=== PATIENT | female | born 1950 | race Caucasian/White ===

== ENCOUNTER 2019-06-02 20:42 | Outpatient (CLI) | payer MEDICARE | END 2019-06-02 20:43 | disposition short-term general hospital (02) | LOC: EMS 20:42 | PROVIDERS: ATTEND Surgery | DX: R10.32 Left lower quadrant pain (principal); M54.5 Low back pain | CPT/HCPCS: A0425; A0429 ==

== ENCOUNTER 2019-06-09 05:27 | Outpatient (CLI) | payer MEDICARE | END 2019-06-09 05:28 | disposition EMS.NT | LOC: EMS 05:27 | PROVIDERS: ATTEND Surgery | DX: Z03.89 Encounter for observation for other suspected diseases and conditions ruled out (principal) ==

== ENCOUNTER 2022-06-02 08:00 | Outpatient (CLI) | payer MEDICARE | END 2022-06-02 23:58 | disposition home or self-care (01) | LOC: LAB.N 08:00 | PROVIDERS: ATTEND Registered Nurse | DX: R30.0 Dysuria (principal) | CPT/HCPCS: 87077; 87086; 87181 ==

== ENCOUNTER 2022-07-28 13:45 | Outpatient (CLI) | payer MEDICARE ==
--- NOTE | 2022-07-29 09:41 | XRAY Report ---
PROCEDURE: Hand 3 View BILAT INDICATIONS: BILATERAL HAND PX TECHNIQUE: 3 views of each hand(s) acquired. COMPARISON: None. FINDINGS: Bones: No fractures or dislocations. No suspicious bony lesions. Mild osteoarthritic changes bilat erally. No definitive bony erosions. Mild periarticular osteopenia. Soft tissues: No suspicious soft tissue calcifications. IMPRESSION: 1. Mild osteoarthritic changes are present bilaterally. There is no bony erosions although there is m ild periventricular osteopenia. Previous correlate with serum markers for inflammatory arthritis. Reviewed by: Robert Palacios MD on 07/29/2022 9:39 AM [facility] Approved by: Robert Palacios MD on 07/29/2022 9:39 AM [facility] Station ID: [id number]
== END 2022-07-28 13:46 | disposition home or self-care (01) ==
LOC: DI.N 13:45
PROVIDERS: ATTEND Internal Medicine
DX: M19.041 Primary osteoarthritis, right hand (principal); M19.042 Primary osteoarthritis, left hand; M85.842 Other specified disorders of bone density and structure, left hand; M85.841 Other specified disorders of bone density and structure, right hand

== ENCOUNTER 2022-12-06 16:17 | Outpatient (CLI) | payer MEDICARE | END 2022-12-06 23:59 | disposition critical access hospital (66) | LOC: EMS 16:17 | DX: R46.4 Slowness and poor responsiveness (principal); R06.82 Tachypnea, not elsewhere classified; R09.02 Hypoxemia; I10 Essential (primary) hypertension; R50.9 Fever, unspecified; R00.0 Tachycardia, unspecified | CPT/HCPCS: A0425; A0427 ==

== ENCOUNTER 2022-12-06 16:38 | Inpatient (IN) | payer MEDICARE ==
[2022-12-06] MEDS ORDERED: SODIUM CHLORIDE 0.9% 1,000 ML IV STA (16:47)
--- NOTE | 2022-12-06 16:48 | ED Physician Documentation ---
PD HPI FEVER - Stated complaint Stated Complaint: AMS - History obtained from History obtained from: EMS - Additional information Additional information: 72-year-old woman brought in by EMS for altered mental status. The patient is nonresponsive so all of the history is from EMS. They obtained their history from the neighbor. Reportedly seen normal yesterday. Today unresponsive and febrile and tachycardic at home. PD PAST MEDICAL HISTORY - Allergies Allergies/Adverse Reactions: Allergies Allergy/AdvReac Type Severity Reaction Status Date / Time No Known Drug Allergies Allergy Verified 12/06/22 16:53 PD ED PE NORMAL - Vitals Vital signs reviewed: Yes - General General: Other (She is unresponsive and does not follow commands. She withdraws to painful stimulus in all 4 extremities.) - HEENT HEENT: PERRL - Neck Neck: Supple, no meningeal sign - Cardiac Cardiac: Other (Tachycardic but regular without murmur) - Respiratory Respiratory: No respiratory distress, Clear bilaterally - Abdomen Abdomen: Soft, Non tender - Back Back: No CVA TTP, No spinal TTP - Derm Derm: Normal color, Warm and dry - Extremities Extremities: No edema, No calf tenderness / cord - Neuro Eye Opening: None Motor: Withdraws to Pain Verbal: None GCS Score: 6 Results - Vitals Vitals: Vital Signs - 24 hr 12/06/22 12/06/22 16:49 19:52 Temperature 39.4 C H 36.7 C Heart Rate 138 H 112 H Respiratory 24 20 Rate Blood Pressure 157/84 H 90/58 L O2 Saturation 92 94 Oxygen O2 Source Nasal cannula Oxygen Flow Rate 3 - EKG (time done) 1758 EKG releavant findings:: EKG personally interpreted by author of this note. Relevant findings are: Rate: Rate (enter#) (129) Rhythm: Sinus tachycardia [place]: Normal Intervals: Normal NE QRS: Normal Ischemia: Normal ST segments - Labs Labs: Laboratory Tests 12/06/22 12/06/22 12/06/22 14:55 16:58 16:58 WBC 9.8 RBC 5.00 Hgb 13.7 Hct 43.2 MCV 86.4 MCH 27.4 MCHC 31.7 L RDW 13.9 Plt Count 158 MPV 9.3 Neut # (Auto) Not Reportable Lymph # (Auto) Not Reportable Willacy # (Auto) Not Reportable Eos # (Auto) Not Reportable Baso # (Auto) Not Reportable Absolute Nucleated RBC Not Reportable Total Counted 100 Band Neuts % (Manual) 14 H Abnorm Lymph % (Manual) 0 Nucleated RBC % Not Reportable Neutrophils # (Manual) 8.9 H Lymphocytes # (Manual) 0.6 L Monocytes # (Manual) 0.1 Eosinophils # (Manual) 0.2 Basophils # (Manual) 0.0 Differential Comment MANUAL DIFFERENTIAL WBC Morphology 3+ SMUDGE CELLS Platelet Estimate NORMAL (130-450,000) Platelet Morphology NORMAL APPEARANCE RBC Morph Micro Appear NORMAL APPEARANCE Sodium 140 Potassium 3.8 Chloride 106 Carbon Dioxide 22 Anion Gap 12.0 BUN 24 H Creatinine 1.7 H Estimated GFR (MDRD) 29 L Glucose 166 H Lactic Acid Calcium 8.5 Total Bilirubin 0.4 AST 34 ALT 18 Alkaline Phosphatase 67 Total Protein 7.2 Albumin 3.5 Globulin 3.7 Albumin/Globulin Ratio 0.9 L Urine Color Urine Clarity Urine pH Ur Specific Horton Urine Protein Urine Glucose (UA) Urine Ketones Urine Occult Blood Urine Nitrite Urine Bilirubin Urine Urobilinogen Ur Leukocyte Esterase Urine RBC Urine WBC Ur Squamous Epith Cells Urine Bacteria Urine Culture Comments Nasal Adenovirus (PCR) NOT DETECTED Nasal B. parapertussis DNA (PCR) NOT DETECTED Nasal Coronavir 229E PCR NOT DETECTED Nasal Coronavir HKU1 PCR NOT DETECTED Nasal Coronavir NL63 PCR NOT DETECTED Nasal Coronavir OC43 PCR NOT DETECTED Nasal Enterovir/Rhinovir PCR NOT DETECTED Nasal Influenza B PCR NOT DETECTED Nasal Influenza A PCR NOT DETECTED Nasal Parainfluen 1 PCR NOT DETECTED Nasal Parainfluen 2 PCR NOT DETECTED Nasal Parainfluen 3 PCR NOT DETECTED Nasal Parainfluen 4 PCR NOT DETECTED Nasal RSV (PCR) NOT DETECTED Nasal B.pertussis DNA PCR NOT DETECTED Nasal C.pneumoniae (PCR) NOT DETECTED Navjot Human Metapneumo PCR NOT DETECTED Nasal M.pneumoniae (PCR) NOT DETECTED Nasal SARS-CoV-2 (PCR) NOT DETECTED 12/06/22 12/06/22 12/06/22 16:58 18:26 20:07 WBC RBC Hgb Hct MCV MCH MCHC RDW Plt Count MPV Neut # (Auto) Lymph # (Auto) Willacy # (Auto) Eos # (Auto) Baso # (Auto) Absolute Nucleated RBC Total Counted Band Neuts % (Manual) Abnorm Lymph % (Manual) Nucleated RBC % Neutrophils # (Manual) Lymphocytes # (Manual) Monocytes # (Manual) Eosinophils # (Manual) Basophils # (Manual) Differential Comment WBC Morphology Platelet Estimate Platelet Morphology RBC Morph Micro Appear Sodium Potassium Chloride Carbon Dioxide Anion Gap BUN Creatinine Estimated GFR (MDRD) Glucose Lactic Acid 4.7 H* 5.7 H* Calcium Total Bilirubin AST ALT Alkaline Phosphatase Total Protein Albumin Globulin Albumin/Globulin Ratio Urine Color YELLOW Urine Clarity CLOUDY Urine pH 6.0 Ur Specific Horton 1.020 Urine Protein NEGATIVE Urine Glucose (UA) NEGATIVE Urine Ketones NEGATIVE Urine Occult Blood MODERATE H Urine Nitrite POSITIVE H Urine Bilirubin NEGATIVE Urine Urobilinogen 1 (NORMAL) Ur Leukocyte Esterase TRACE H Urine RBC 6-10 H Urine WBC 11-25 H Ur Squamous Epith Cells NONE SEEN Urine Bacteria Many H Urine Culture Comments INDICATED Nasal Adenovirus (PCR) Nasal B. parapertussis DNA (PCR) Nasal Coronavir 229E PCR Nasal Coronavir HKU1 PCR Nasal Coronavir NL63 PCR Nasal Coronavir OC43 PCR Nasal Enterovir/Rhinovir PCR Nasal Influenza B PCR Nasal Influenza A PCR Nasal Parainfluen 1 PCR Nasal Parainfluen 2 PCR Nasal Parainfluen 3 PCR Nasal Parainfluen 4 PCR Nasal RSV (PCR) Nasal B.pertussis DNA PCR Nasal C.pneumoniae (PCR) Navjot Human Metapneumo PCR Nasal M.pneumoniae (PCR) Nasal SARS-CoV-2 (PCR) - Rads (name of study) CT of the head and single view chest x-ray were unremarkable Relevant Findings:: Final report received, EMP independent interpretation of test Procedures - Central Line - Major Central Line Preparation: Unable to obtain consent, Time out completed, Ultrasound used, Sterile prep and drape Central line location: Right IJ Central line type: Triple lumen Central line aftercare: Chlorhexidine disc placed, Secured, Placement confirmed, No pneumothorax, No complications, Bundle checklist complete, Pt tolerated well PD Medical Decision Making - ED course ED course: 72-year-old woman presents by ambulance febrile, tachycardic, and significantly encephalopathic. Sepsis is presumed. CBC is notable to have a high normal white count with significant bandemia. Lactic acidosis quite elevated at 4.7 with TOMMY on CMP. Urinalysis purulent and [employer] respiratory panel negative. Head CT and chest x-ray were unremarkable. She was cultured up and given broad- spectrum antibiotics with cefepime, Flagyl and vancomycin before the source of UTI was noted and we can tailor antibiotics at this juncture. I discussed the case by phone with her sister who is her Lnok as her children are estranged. She does not know about any specific pre-existing wishes about CODE STATUS and is presumed to be full code because of that. Telehealth consultation placed at 7:04 PM. In the department she also received 30 mL/kg of IV crystalloid for her sepsis. I presented the case to Dr. Guzman for admission at 7:20 PM. He stated there may be a delay to admission orders as he is not as his computer. Subsequently Dr. Rosen called me back and clarified that he would be the admitting physician. He asked me to place a central line which I did do. However subsequent to this I wondered if the patient might have an obstruction and she cannot really give a history and was quite ill. CT of the abdomen pelvis was done showing distal left ureteral stone of only 2 mm in size. Given this finding we will consult urology and hold the current admission pending their opinion. Care to Dr Mendez at 10p shift chg pending call back from urology and with clear instructions to him and RN to hold admit pending their consult given potential need for transfer. - Critical Care Time(min): 45 Time Includes: Direct patient care, Review records, Reassess patient, Document care, Coordinate care, Medical consult, Family consult for tx dec Data interpretation: Labs, Pulse ox Procedures included in critical care time: Peripheral IV Procedures excluded from critical care time: EKG Departure - Departure Disposition: 66 [facility] DC/Xfer Clinical Impression: Urinary tract infection Qualifiers: Urinary tract infection type: site unspecified Hematuria presence: without hematuria Qualified Code(s): N39.0 - Urinary tract infection, site not specified Sepsis Qualifiers: Sepsis type: sepsis due to unspecified organism Sepsis acute organ dysfunction status: with acute organ dysfunction Severe sepsis acute organ dysfunction type: encephalopathy Severe sepsis shock status: with septic shock Qualified Code(s): A41.9 - Sepsis, unspecified organism Altered mental status Qualifiers: Altered mental status type: delirium Qualified Code(s): R41.0 - Disorientation, unspecified Condition: Critical
[2022-12-06] MEDS ORDERED: ACETAMINOPHEN 1,000 MG/100 ML 1,000 MG/100 ML BAG IV ONE ×2 (16:54→21:53)
[2022-12-06 17:06] LABS: BASOPHILS % (AUTO) 0.4 %; HCT - HEMATOCRIT 43.2 % (37.0-47.0); HGB - HEMOGLOBIN 13.7 g/dL (12.0-16.0); LYMPHOCYTES % (AUTO) 1.8 %; MEAN CORPUSCULAR HEMOGLOBIN 27.4 pg (27.0-31.0); MEAN CORPUSCULAR HGB CONC 31.7 g/dL (32.0-36.0); MEAN CORPUSCULAR VOLUME 86.4 fL (81.0-99.0); MEAN PLATELET VOLUME 9.3 fL (7.9-10.8); MONOCYTES % (AUTO) 1.2 %; NEUTROPHILS % (AUTO) 96.3 %; PLT - PLATELET COUNT 158 10^3/uL (130-450); RED CELL DISTRIBUTION WIDTH 13.9 % (12.0-15.0); WHITE BLOOD COUNT 9.8 x10^3/uL (4.8-10.8)
[2022-12-06 17:10] LABS: ABNORMAL LYMPHS % (MANUAL) 0 %
[2022-12-06 17:16] LABS: ALBUMIN 3.5 g/dL (3.2-5.5); ALBUMIN/GLOBULIN RATIO 0.9 (1.0-2.2); BILIRUBIN,TOTAL 0.4 mg/dL (0.2-1.0); CALCIUM 8.5 mg/dL (8.5-10.3); CREATININE 1.7 mg/dL (0.4-1.0); POTASSIUM 3.8 mmol/L (3.5-5.0); TOTAL PROTEIN 7.2 g/dL (6.7-8.2)
[2022-12-06 17:26] LABS: LACTIC ACID, VENOUS 4.7 mmol/L (0.5-2.2)
[2022-12-06] MEDS ORDERED: LACTATED RINGERS 3,000 ML IV STA (17:27)
--- NOTE | 2022-12-06 17:27 | CT Report ---
PROCEDURE: HEAD WO INDICATIONS: ams TECHNIQUE: Noncontrast 4.5 mm thick angled axial sections acquired from the foramen magnum to the vertex. For r adiation dose reduction, the following was used: automated exposure control, adjustment of mA and/or kV according to patient size. COMPARISON: Correlation is made with the accompanying chest radiograph, 12/06/2022. FINDINGS: Image quality: There is streak artifact seen through the skull base. CSF spaces: Basal cisterns are patent. No extra-axial fluid collections. Ventricles are normal in size and shape. Brain: No midline shift. No intracranial masses or hemorrhage. Patel-white matter interface is norm al. Skull and face: Calvarium and visualized facial bones are intact, without suspicious lesions. Hyper ostosis frontalis is incidentally noted, which is not frankly abnormal for a female patient of this a ge. Sinuses: Visualized sinuses and mastoids are clear. IMPRESSION: Limited intracranial study, yet without a cause of altered mental status identified. Reviewed by: Hunter Sheth MD on 12/06/2022 4:26 PM [facility] Approved by: Hunter hSeth MD on 12/06/2022 4:26 PM [facility] Station ID: [id number]
--- NOTE | 2022-12-06 17:27 | XRAY Report ---
PROCEDURE: Chest 1 View X-Ray INDICATIONS: fever TECHNIQUE: One view of the chest was acquired. COMPARISON: Correlation is made with the accompanying head CT, 12/06/2022. FINDINGS: Surgical changes and devices: None. Lungs and pleura: Low lung volumes can be seen, causing a crowded appearance to the lung markings. O n the semiupright images, no large pneumothorax or large pleural effusions can be seen. No focal infi ltrates are seen. Mediastinum: The aorta is prominent and tortuous. The cardiac contours are within normal limits. Bones and chest wall: No suspicious bony lesions. Age-appropriate degenerative changes are seen. Overlying soft tissues appear unremarkable. IMPRESSION: Limited portable chest examination, without an acute abnormality identified. Reviewed by: Hunter Sheth MD on 12/06/2022 4:26 PM [facility] Approved by: Hunter Sheth MD on 12/06/2022 4:26 PM [facility] Station ID: [id number]
[2022-12-06] MEDS ORDERED: CEFEPIME 2 GM in SODIUM CHLORIDE 0.9% MINIBAG 100 ML IV STA (17:28)
[2022-12-06] MEDS ORDERED: VANCOMYCIN INJ 1.25 GM in SODIUM CHLORIDE 0.9% 250 ML IV STA (17:28)
[2022-12-06] MEDS ORDERED: metroNIDAZOLE 500 MG/100 ML 500 MG/100 ML BAG IV STA (17:28)
[2022-12-06 18:32] LABS: BILIRUBIN,URINE NEGATIVE (NEGATIVE); GLUCOSE, URINE (UA) NEGATIVE (NEGATIVE); KETONES,URINE (UA) NEGATIVE (NEGATIVE); LEUKOCYTE ESTERASE, URINE TRACE (NEGATIVE); NITRITE,URINE POSITIVE (NEGATIVE); OCCULT BLOOD,URINE MODERATE (NEGATIVE); PROTEIN,URINE NEGATIVE (NEGATIVE); UROBILINOGEN,URINE 1 (NORMAL) E.U./dL (NORMAL)
[2022-12-06 18:37] LABS: BAND NEUTROPHILS % (MANUAL) 14 %; DIFFERENTIAL COMMENT MANUAL DIFFERENTIAL; EOSINOPHILS # (MANUAL) 0.2 10^3/uL (0-0.7); LYMPHOCYTES # (MANUAL) 0.6 10^3/uL (1.5-3.5); LYMPHOCYTES % (MANUAL) 6 %; MONOCYTES # (MANUAL) 0.1 10^3/uL (0.0-1.0); NEUTROPHILS # (MANUAL) 8.9 10^3/uL (1.5-6.6); PLATELET ESTIMATE, MANUAL NORMAL (130-450,000) (NORMAL); PLATELET MORPHOLOGY NORMAL APPEARANCE (NORMAL); RBC MORPHOLOGY (MULTIPLE) NORMAL APPEARANCE (NORMAL); WBC MORPHOLOGY (MULTIPLE) 3+ SMUDGE CELLS (NORMAL)
[2022-12-06 18:45] LABS: CLARITY,URINE CLOUDY (CLEAR)
[2022-12-06 18:47] LABS: BACTERIA,URINE Many /HPF (None Seen); SQUAMOUS EPITHELIAL CELL,UR NONE SEEN (<= Few)
[2022-12-06 18:50] LABS: B. PARAPERTUSSIS- RESP PCR PAN NOT DETECTED; B. PERTUSSIS- RESP PCR PANEL NOT DETECTED; C. PNEUMONIAE- RESP PCR PANEL NOT DETECTED; CORONAVIRUS 229E-RESP PCR NOT DETECTED; CORONAVIRUS HKU1-RESP PCR NOT DETECTED; CORONAVIRUS NL63-RESP PCR NOT DETECTED; CORONAVIRUS OC43-RESP PCR NOT DETECTED; HUMAN METAPNEUMOVIRUS NOT DETECTED; INFLUENZA A- RESP PCR PANEL NOT DETECTED; INFLUENZA B - RESP PCR PANEL NOT DETECTED; M. PNEUMONIAE- RESP PCR PANEL NOT DETECTED; PARAINFLUENZA VIRUS 1 NOT DETECTED; PARAINFLUENZA VIRUS 2 NOT DETECTED; PARAINFLUENZA VIRUS 3 NOT DETECTED; PARAINFLUENZA VIRUS 4 NOT DETECTED; RHINOVIRUS/ENTEROVIRUS NOT DETECTED; RSV- RESP PCR PANEL NOT DETECTED; SARS-CoV-2 -RESP PCR PANEL NOT DETECTED
[2022-12-06] MEDS ORDERED: VANCOMYCIN 1 GM VIAL ONE (19:09)
[2022-12-06 20:32] LABS: LACTIC ACID, VENOUS 5.7 mmol/L (0.5-2.2)
--- NOTE | 2022-12-06 20:42 | HISTORY & PHYSICAL EXAMINATION ---
Chief Complaint - Chief Complaint Chief Complaint: AMS History of Present Illness - History of Present Illness HPI Comment/Other: 72 y old female BIBA due to AMS. Pt is confused , so most of history from ER physician and ER record. On presentaion, patient was febrile, tachycardic and unconsious. 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.7, Lactic acid 4.6 COVID neg UA positive for UTI CXR showed no acute findings CT head neg In ER, pt was given IVF 30 ml/lg, IV Abx Patient is beding admitted due to AMS, Septic shock, UTI, TOMMY Meds/Allgy - Allergies Allergies/Adverse Reactions: Allergies Allergy/AdvReac Type Severity Reaction Status Date / Time No Known Drug Allergies Allergy Verified 12/06/22 16:53 Review of Systems - Other Findings Other Findings: Unable to obtain due to AMS Exam - Vital Signs Vital Signs: Vital Signs x48h Temp Pulse Resp BP Pulse Ox 12/06/22 19:52 36.7 C 112 H 20 90/58 L 94 12/06/22 16:49 39.4 C H 138 H 24 157/84 H 92 - Physical Exam General Appearance: positive: No acute distress, Other (Confused) Eyes Bilateral: positive: PERRL ENT: positive: ENT inspection nml Neck: positive: Nml inspection Respiratory: positive: Breath sounds nml Cardiovascular: positive: Tachycardia Abdomen: positive: Nml bowel sounds Skin: positive: No rash Extremities: positive: Pedal edema Neurologic/Psychiatric: positive: Other (Pt is confused.Does not follow command) Conclusion/Plan - Lab Results Fish Bones: 12/06/22 16:58 12/06/22 16:58 - Other Other Results/Comments: A; AMS Acute encephalopathy Septic shock UTI Bandemia TOMMY Plan; Admit in ICU NPO NS @ 125 cc/h Swallow screen by RN Monitor mental status Neuro checks Follow cultures Start ceftriaxone 1 gram iv q12h Lactic acid q6h Repeat CBC, BMP in am Monitor I/O, electrolytes Supportive care DVT prophylaxic: SCD Full code Pt is admitted as inpatient as more than 2 midnight stay is expected
--- NOTE | 2022-12-06 21:05 | XRAY Report ---
PROCEDURE: Chest for Line Placement INDICATIONS: line placement TECHNIQUE: One view of the chest was acquired. COMPARISON: Similar chest plain film earlier same day.. FINDINGS: Surgical changes and devices: A right internal jugular central line has been placed extending into t he distal SVC. Lungs and pleura: No pleural effusions or pneumothorax. Lungs are moderately edematous. Mediastinum: Mediastinal contours appear normal. Heart size is at or just above the upper limits of normal. Bones and chest wall: No suspicious bony lesions. Overlying soft tissues appear unremarkable. IMPRESSION: Right internal jugular central line placed in normal position, without pneumothorax. Mild pulmonary e chelsi pattern, heart size is at or just above the upper limits of normal. Slight interval worsening of mild CHF pattern. Reviewed by: Guy Case MD on 12/06/2022 9:04 PM PDT Approved by: Guy Case MD on 12/06/2022 9:04 PM PDT Station ID: [id number]
[2022-12-06] MEDS: SODIUM CHLORIDE 0.9% 1,000 ML IV SCH (21:53)
--- NOTE | 2022-12-06 21:57 | CT Report ---
PROCEDURE: ABDOMEN/PELVIS WO INDICATIONS: uti sepsis TECHNIQUE: Noncontrast 5 mm thick sections acquired from the diaphragms to the symphysis. 5 mm coronal and sagi ttal reformats were then performed. For radiation dose reduction, the following was used: automated exposure control, adjustment of mA and/or kV according to patient size. COMPARISON: None. FINDINGS: Image quality: Limited by the absence of both oral and intravenous contrast. Lung bases and heart: Unremarkable except for mild atelectasis or possibly pneumonia.. Liver: Unremarkable. Gallbladder and biliary tree: Gallbladder surgically absent. Spleen: Unremarkable. Pancreas: Unremarkable. Adrenals: Unremarkable. Kidneys and ureters: Slight left-sided hydronephrosis appears associated with a far distal 2 mm left ureteral stone. Several small nonobstructive right renal collecting system calculi appear present the largest of which measures 3 x 4 mm at the central collecting system superiorly. Bowel and peritoneum: No bowel distension. No pathologic free fluid. Lymph nodes: No central or retroperitoneal adenopathy. Vessels: Unremarkable. PELVIS Reproductive organs: Unremarkable. Bladder: Unremarkable. Lymph nodes: Unremarkable. Bones: No aggressive osseous abnormality. Other: None. IMPRESSION: Far distal left ureteral stone measuring only 2 mm in diameter. Several nearby low pelvic phleboliths are incidentally noted. Slight associated left-sided hydronephrosis. 3 small central renal collectin g system calculi appear present on the right without obstructive influence. Prior cholecystectomy. Reviewed by: Guy Case MD on 12/06/2022 9:56 PM PDT Approved by: Guy Case MD on 12/06/2022 9:56 PM PDT Station ID: [id number]
--- NOTE | 2022-12-06 23:31 | ED Physician Documentation ---
ED Addendum - Addendum Addendum: 12/06/22 23:27 This patient was evaluated by my colleague Dr. Willson; please see his note for complete history and physical. The telehealth physician has already entered admission orders to [facility] for this patient, but the patient is held in the emergency department until consult is obtained with a urologist due to CT of the abdomen pelvis demonstrating a 2 mm UVJ stone on the left with "slight hydronephrosis" (per the radiologist reading). I discussed the case with Dr. Wheeler, on-call urology for [facility]. This conversation included, of course, the results of blood test, urinalysis, and the CT of the abdomen pelvis. Dr. Wheeler says the patient does not need a stent nor similar procedure at this time, that the findings on the CT would not indicate such a procedure nor the need/benefit for transfer to another facility, and that the patient is appropriate for admission to [facility].
[2022-12-06] MEDS: SODIUM CHLORIDE FLUSH 0.9% 10 ML SYRINGE IVP PRN (23:36)
[2022-12-06 23:51] LABS: CALCIUM, IONIZED 1.05 mmol/L (1.15-1.33); VBG PH 7.404 (7.31-7.41)
[2022-12-07] MEDS ORDERED: NOREPINEPHRINE/D5W 8 MG/250 ML BAG IV ONE (00:14)
[2022-12-07 00:16] LABS: LACTIC ACID, VENOUS 4.9 mmol/L (0.5-2.2)
[2022-12-07 00:17] LABS: MAGNESIUM 1.2 mg/dL (1.7-2.8); PHOSPHORUS 1.5 mg/dL (2.5-4.6)
[2022-12-07] MEDS: NOREPINEPHRINE/D5W 8 MG/250 ML BAG IV SCH ×2 (00:20→10:17)
[2022-12-07] MEDS: SODIUM CHLORIDE FLUSH 0.9% 10 ML SYRINGE IVP SCH ×4 (01:12→17:07)
[2022-12-07] MEDS ORDERED: CALCIUM CHLORIDE 1,000 MG in SODIUM CHLORIDE 0.9% 50 ML IV ONE (01:24)
[2022-12-07] MEDS ORDERED: POTASSIUM PHOSPHATE 21 MMOL in SODIUM CHLORIDE 0.9% 250 ML IV ONE (01:25)
[2022-12-07] MEDS: MAGNESIUM SULFATE 2 GRAM 2 GM/50 ML BAG IV SCH ×2 (01:59→02:52)
[2022-12-07] MEDS: SODIUM CHLORIDE 0.9% 500 ML IV PRN ×2 (04:05→20:32)
[2022-12-07] MEDS: SODIUM CHLORIDE FLUSH 0.9% 10 ML SYRINGE IVP PRN ×2 (04:33→20:37)
[2022-12-07 04:54] LABS: BASOPHILS % (AUTO) 0.1 %; EOSINOPHILS % (AUTO) 0.3 %; HCT - HEMATOCRIT 35.4 % (37.0-47.0); HGB - HEMOGLOBIN 11.5 g/dL (12.0-16.0); LYMPHOCYTES % (AUTO) 1.8 %; MEAN CORPUSCULAR HGB CONC 32.5 g/dL (32.0-36.0); MEAN CORPUSCULAR VOLUME 86.3 fL (81.0-99.0); MEAN PLATELET VOLUME 9.9 fL (7.9-10.8); MONOCYTES % (AUTO) 3.2 %; NEUTROPHILS % (AUTO) 91.2 %; PLT - PLATELET COUNT 146 10^3/uL (130-450); RED CELL DISTRIBUTION WIDTH 14.6 % (12.0-15.0)
[2022-12-07 04:55] LABS: CALCIUM, IONIZED 1.17 mmol/L (1.15-1.33); VBG PH 7.349 (7.31-7.41)
[2022-12-07 05:04] LABS: LACTIC ACID, VENOUS 2.4 mmol/L (0.5-2.2)
[2022-12-07 05:06] LABS: CALCIUM 8.4 mg/dL (8.5-10.3); CREATININE 1.8 mg/dL (0.4-1.0); MAGNESIUM 2.7 mg/dL (1.7-2.8); PHOSPHORUS 4.1 mg/dL (2.5-4.6); POTASSIUM 3.5 mmol/L (3.5-5.0)
[2022-12-07 05:17] LABS: WHITE BLOOD COUNT 40.9 x10^3/uL (4.8-10.8)
[2022-12-07 05:18] LABS: ABNORMAL LYMPHS % (MANUAL) 0 %
[2022-12-07 05:21] LABS: BAND NEUTROPHILS % (MANUAL) 29 %; LYMPHOCYTES # (MANUAL) 1.2 10^3/uL (1.5-3.5); LYMPHOCYTES % (MANUAL) 3 %; METAMYELOCYTES % (MANUAL) 3 %; MONOCYTES # (MANUAL) 1.2 10^3/uL (0.0-1.0); NEUTROPHILS # (MANUAL) 37.2 10^3/uL (1.5-6.6)
[2022-12-07 05:22] LABS: DIFFERENTIAL COMMENT MANUAL DIFFERENTIAL; PLATELET ESTIMATE, MANUAL NORMAL (130-450,000) (NORMAL); RBC MORPHOLOGY (MULTIPLE) NORMAL APPEARANCE (NORMAL)
[2022-12-07] MEDS: SODIUM CHLORIDE 0.9% 1,000 ML IV SCH ×3 (05:46→20:32)
--- NOTE | 2022-12-07 07:50 | PROVIDER PROGRESS NOTE ---
Subjective - Prog Note Date Prog Note Date: 12/07/22 Prog Note Time: 07:47 - Subjective Pt reports feeling: Improved Subjective: Patient is alert and oriented x3. She does complain of right upper quadrant abdominal pain which she reports started this morning. She denies chest pain or shortness of breath. Current Medications - Current Medications Current Medications: Active Medications Generic Name Dose Route Start Last Admin Trade Name Freq PRN Reason Stop Dose Admin Acetaminophen 650 mg 12/06/22 20:25 Acetaminophen 325 Mg Tablet PO Q4HR PRN Pain 1 to 4, or Fever Sodium Chloride 1,000 mls @ 125 mls/hr 12/06/22 21:00 12/07/22 07:00 Normal Saline 0.9% IV 125 mls/hr .Q8H EVELYNE Infusion Ceftriaxone Sodium 1 gm/ 100 mls @ 200 mls/hr 12/07/22 09:00 Sodium Chloride IV Q12H EVELYNE Sodium Chloride 500 mls @ 20 mls/hr 12/07/22 00:02 12/07/22 06:00 Normal Saline 0.9% IV 20 mls/hr Q24H PRN Infusion TKO RATE Norepinephrine Bitartrate 8 mg in 250 mls @ 15 mls/hr 12/07/22 01:00 12/07/22 06:00 Levophed 8 Mg/250 Ml D5w IV 16 mcg/min .[id number] EVELYNE 30 mls/hr Titration Protocol 8 MCG/MIN Ondansetron HCl 4 mg 12/06/22 20:25 Ondansetron 4 Mg/2 Ml Vial IVP Q6HR PRN Nausea / Vomiting Sodium Chloride 10 ml 12/07/22 01:00 12/07/22 01:59 Sodium Chloride Flush 0.9% 10 Ml Syringe IVP 10 ml [id number] EVELYNE Administration Sodium Chloride 10 ml 12/06/22 20:25 12/06/22 23:36 Sodium Chloride Flush 0.9% 10 Ml Syringe IVP 30 ml PRN PRN Administration NEEDED PER PROVIDER ORDERS Sodium Chloride 20 ml 12/07/22 00:02 12/07/22 04:33 Sodium Chloride Flush 0.9% 10 Ml Syringe IVP 20 ml PRN PRN Administration After Blood Draw DULoxetine [Cymbalta] 30 mg PO DAILY 12/07/22 Losartan [Cozaar] 50 mg PO DAILY 12/07/22 Nitrofurantoin Macrocrystal [Macrodantin] 50 mg PO DAILY 12/07/22 Omeprazole 40 mg PO QDAC 12/07/22 Oxybutynin Chloride [Ditropan Xl] 10 mg PO DAILY 12/07/22 Objective - Vital Signs/Intake & Output Reviewed Vital Signs: Yes Vital Signs: Vital Signs Temp Pulse Resp BP Pulse Ox O2 Flow Rate 12/07/22 07:30 103 H 25 H 108/83 H 98 12/07/22 07:00 105 H 19 104/65 97 4 12/07/22 06:30 104 H 19 109/67 98 4 12/07/22 06:00 97 17 101/71 97 4 12/07/22 05:30 104 H 19 93/66 96 4 12/07/22 05:14 0 12/07/22 05:00 106 H 19 92/65 96 4 12/07/22 04:30 36.6 C 106 H 18 89/57 L 96 4 12/07/22 04:20 105 H 18 90/62 96 4 12/07/22 04:15 108 H 19 85/52 L 95 4 12/07/22 04:10 107 H 19 83/56 L 95 4 12/07/22 04:05 107 H 19 81/56 L 95 4 12/07/22 04:00 108 H 19 85/58 L 95 4 Intake & Output: Intake & Output 12/04/22 12/05/22 12/06/22 12/07/22 23:59 23:59 23:59 23:59 Intake Total 4789.583 1782.251 Output Total 590 Balance 4789.583 1192.251 - Objective General Appearance: positive: No acute distress, Alert Eyes Bilateral: positive: Normal inspection Neck: positive: Nml inspection Respiratory: positive: Chest non-tender, No respiratory distress, Breath sounds nml Cardiovascular: positive: Regular rate & rhythm, No murmur, No gallop Peripheral Pulses: 1+ Dorsalis pedis (R), 1+ Dorsalis pedis (L) Abdomen: positive: No organomegaly, Nml bowel sounds, No distention, Tenderness (Right upper quadrant tenderness) Back: positive: Nml inspection Skin: positive: No rash ( from feet to lower legsBilateral lower extremities remarkable for skin mottling and cool to touch), Other Extremities: positive: Other ( previous to admissionRight ankle limited range of motion secondary to fracture) Neurologic/Psychiatric: positive: Oriented x3, CN's nml (2-12) - Lab Results Fish Bones: 12/07/22 04:30 12/07/22 04:30 Other Labs: Lab Results x24hrs 12/07/22 12/07/22 12/07/22 Range/Units 04:30 04:30 04:30 WBC (4.8-10.8) x10^3/uL RBC (4.20-5.40) 10^6/uL Hgb (12.0-16.0) g/dL Hct (37.0-47.0) % MCV (81.0-99.0) fL MCH (27.0-31.0) pg MCHC (32.0-36.0) g/dL RDW (12.0-15.0) % Plt Count (130-450) 10^3/uL MPV (7.9-10.8) fL Neut # (Auto) Lymph # (Auto) Cannon # (Auto) Eos # (Auto) Baso # (Auto) Absolute Nucleated RBC Total Counted Band Neuts % (Manual) (0 - 10) % Abnorm Lymph % (Manual) % Metamyelocytes % ( - 0) % Nucleated RBC % Neutrophils # (Manual) (1.5-6.6) 10^3/uL Lymphocytes # (Manual) (1.5-3.5) 10^3/uL Monocytes # (Manual) (0.0-1.0) 10^3/uL Eosinophils # (Manual) (0-0.7) 10^3/uL Basophils # (Manual) (0-0.1) 10^3/uL Differential Comment WBC Morphology (NORMAL) Platelet Estimate (NORMAL) Platelet Morphology (NORMAL) RBC Morph Micro Appear (NORMAL) VBG pH 7.349 (7.31-7.41) Ionized Calcium 1.17 (1.15-1.33) mmol/L Sodium (135-145) mmol/L Potassium (3.5-5.0) mmol/L Chloride (101-111) mmol/L Carbon Dioxide (21-32) mmol/L Anion Gap (6-13) BUN (6-20) mg/dL Creatinine (0.4-1.0) mg/dL Estimated GFR (MDRD) (>89) Glucose (70-100) mg/dL Lactic Acid 2.4 H (0.5-2.2) mmol/L Calcium (8.5-10.3) mg/dL Phosphorus (2.5-4.6) mg/dL Magnesium (1.7-2.8) mg/dL Total Bilirubin (0.2-1.0) mg/dL AST (10-42) IU/L ALT (10-60) IU/L Alkaline Phosphatase (42-121) IU/L Troponin I High Sens 838.2 H* (2.3-14.8) ng/L Total Protein (6.7-8.2) g/dL Albumin (3.2-5.5) g/dL Globulin (2.1-4.2) g/dL Albumin/Globulin Ratio (1.0-2.2) Urine Color Urine Clarity (CLEAR) Urine pH (5.0-7.5) PH Ur Specific [place] (1.002-1.030) Urine Protein (NEGATIVE) mg/dL Urine Glucose (UA) (NEGATIVE) mg/dL Urine Ketones (NEGATIVE) mg/dL Urine Occult Blood (NEGATIVE) Urine Nitrite (NEGATIVE) Urine Bilirubin (NEGATIVE) Urine Urobilinogen (NORMAL) E.U./dL Ur Leukocyte Esterase (NEGATIVE) Urine RBC (0-5) /HPF Urine WBC (0-5) /HPF Ur Squamous Epith Cells (<= Few) Urine Bacteria (None Seen) /HPF Urine Culture Comments Nasal Adenovirus (PCR) Nasal B. parapertussis DNA (PCR) Nasal Coronavir 229E PCR Nasal Coronavir HKU1 PCR Nasal Coronavir NL63 PCR Nasal Coronavir OC43 PCR Nasal Enterovir/Rhinovir PCR Nasal Influenza B PCR Nasal Influenza A PCR Nasal Parainfluen 1 PCR Nasal Parainfluen 2 PCR Nasal Parainfluen 3 PCR Nasal Parainfluen 4 PCR Nasal RSV (PCR) Nasal Screen MRSA (PCR) (NEGATIVE) Nasal B.pertussis DNA PCR Nasal C.pneumoniae (PCR) Navjot Human Metapneumo PCR Nasal M.pneumoniae (PCR) Nasal SARS-CoV-2 (PCR) 12/07/22 12/07/22 12/06/22 Range/Units 04:30 04:30 23:38 WBC 40.9 H* (4.8-10.8) x10^3/uL RBC 4.10 L (4.20-5.40) 10^6/uL Hgb 11.5 L (12.0-16.0) g/dL Hct 35.4 L (37.0-47.0) % MCV 86.3 (81.0-99.0) fL MCH 28.0 (27.0-31.0) pg MCHC 32.5 (32.0-36.0) g/dL RDW 14.6 (12.0-15.0) % Plt Count 146 (130-450) 10^3/uL MPV 9.9 (7.9-10.8) fL Neut # (Auto) Not Reportable Lymph # (Auto) Not Reportable Cannon # (Auto) Not Reportable Eos # (Auto) Not Reportable Baso # (Auto) Not Reportable Absolute Nucleated RBC Not Reportable Total Counted 100 Band Neuts % (Manual) 29 H (0 - 10) % Abnorm Lymph % (Manual) 0 % Metamyelocytes % 3 H ( - 0) % Nucleated RBC % Not Reportable Neutrophils # (Manual) 37.2 H (1.5-6.6) 10^3/uL Lymphocytes # (Manual) 1.2 L (1.5-3.5) 10^3/uL Monocytes # (Manual) 1.2 H (0.0-1.0) 10^3/uL Eosinophils # (Manual) 0.0 (0-0.7) 10^3/uL Basophils # (Manual) 0.0 (0-0.1) 10^3/uL Differential Comment MANUAL DIFFERENTIAL WBC Morphology (NORMAL) Platelet Estimate NORMAL (130-450,000) (NORMAL) Platelet Morphology (NORMAL) RBC Morph Micro Appear NORMAL APPEARANCE (NORMAL) VBG pH 7.404 (7.31-7.41) Ionized Calcium 1.05 L (1.15-1.33) mmol/L Sodium 140 (135-145) mmol/L Potassium 3.5 (3.5-5.0) mmol/L Chloride 111 (101-111) mmol/L Carbon Dioxide 20 L (21-32) mmol/L Anion Gap 9.0 (6-13) BUN 28 H (6-20) mg/dL Creatinine 1.8 H (0.4-1.0) mg/dL Estimated GFR (MDRD) 28 L (>89) Glucose 118 H (70-100) mg/dL Lactic Acid (0.5-2.2) mmol/L Calcium 8.4 L (8.5-10.3) mg/dL Phosphorus 4.1 (2.5-4.6) mg/dL Magnesium 2.7 (1.7-2.8) mg/dL Total Bilirubin (0.2-1.0) mg/dL AST (10-42) IU/L ALT (10-60) IU/L Alkaline Phosphatase (42-121) IU/L Troponin I High Sens (2.3-14.8) ng/L Total Protein (6.7-8.2) g/dL Albumin (3.2-5.5) g/dL Globulin (2.1-4.2) g/dL Albumin/Globulin Ratio (1.0-2.2) Urine Color Urine Clarity (CLEAR) Urine pH (5.0-7.5) PH Ur Specific [place] (1.002-1.030) Urine Protein (NEGATIVE) mg/dL Urine Glucose (UA) (NEGATIVE) mg/dL Urine Ketones (NEGATIVE) mg/dL Urine Occult Blood (NEGATIVE) Urine Nitrite (NEGATIVE) Urine Bilirubin (NEGATIVE) Urine Urobilinogen (NORMAL) E.U./dL Ur Leukocyte Esterase (NEGATIVE) Urine RBC (0-5) /HPF Urine WBC (0-5) /HPF Ur Squamous Epith Cells (<= Few) Urine Bacteria (None Seen) /HPF Urine Culture Comments Nasal Adenovirus (PCR) Nasal B. parapertussis DNA (PCR) Nasal Coronavir 229E PCR Nasal Coronavir HKU1 PCR Nasal Coronavir NL63 PCR Nasal Coronavir OC43 PCR Nasal Enterovir/Rhinovir PCR Nasal Influenza B PCR Nasal Influenza A PCR Nasal Parainfluen 1 PCR Nasal Parainfluen 2 PCR Nasal Parainfluen 3 PCR Nasal Parainfluen 4 PCR Nasal RSV (PCR) Nasal Screen MRSA (PCR) (NEGATIVE) Nasal B.pertussis DNA PCR Nasal C.pneumoniae (PCR) Navjot Human Metapneumo PCR Nasal M.pneumoniae (PCR) Nasal SARS-CoV-2 (PCR) 12/06/22 12/06/22 12/06/22 Range/Units 23:38 23:38 22:29 WBC (4.8-10.8) x10^3/uL RBC (4.20-5.40) 10^6/uL Hgb (12.0-16.0) g/dL Hct (37.0-47.0) % MCV (81.0-99.0) fL MCH (27.0-31.0) pg MCHC (32.0-36.0) g/dL RDW (12.0-15.0) % Plt Count (130-450) 10^3/uL MPV (7.9-10.8) fL Neut # (Auto) Lymph # (Auto) Cannon # (Auto) Eos # (Auto) Baso # (Auto) Absolute Nucleated RBC Total Counted Band Neuts % (Manual) (0 - 10) % Abnorm Lymph % (Manual) % Metamyelocytes % ( - 0) % Nucleated RBC % Neutrophils # (Manual) (1.5-6.6) 10^3/uL Lymphocytes # (Manual) (1.5-3.5) 10^3/uL Monocytes # (Manual) (0.0-1.0) 10^3/uL Eosinophils # (Manual) (0-0.7) 10^3/uL Basophils # (Manual) (0-0.1) 10^3/uL Differential Comment WBC Morphology (NORMAL) Platelet Estimate (NORMAL) Platelet Morphology (NORMAL) RBC Morph Micro Appear (NORMAL) VBG pH (7.31-7.41) Ionized Calcium (1.15-1.33) mmol/L Sodium (135-145) mmol/L Potassium (3.5-5.0) mmol/L Chloride (101-111) mmol/L Carbon Dioxide (21-32) mmol/L Anion Gap (6-13) BUN (6-20) mg/dL Creatinine (0.4-1.0) mg/dL Estimated GFR (MDRD) (>89) Glucose (70-100) mg/dL Lactic Acid 4.9 H* (0.5-2.2) mmol/L Calcium (8.5-10.3) mg/dL Phosphorus 1.5 L (2.5-4.6) mg/dL Magnesium 1.2 L (1.7-2.8) mg/dL Total Bilirubin (0.2-1.0) mg/dL AST (10-42) IU/L ALT (10-60) IU/L Alkaline Phosphatase (42-121) IU/L Troponin I High Sens 621.8 H* (2.3-14.8) ng/L Total Protein (6.7-8.2) g/dL Albumin (3.2-5.5) g/dL Globulin (2.1-4.2) g/dL Albumin/Globulin Ratio (1.0-2.2) Urine Color Urine Clarity (CLEAR) Urine pH (5.0-7.5) PH Ur Specific [place] (1.002-1.030) Urine Protein (NEGATIVE) mg/dL Urine Glucose (UA) (NEGATIVE) mg/dL Urine Ketones (NEGATIVE) mg/dL Urine Occult Blood (NEGATIVE) Urine Nitrite (NEGATIVE) Urine Bilirubin (NEGATIVE) Urine Urobilinogen (NORMAL) E.U./dL Ur Leukocyte Esterase (NEGATIVE) Urine RBC (0-5) /HPF Urine WBC (0-5) /HPF Ur Squamous Epith Cells (<= Few) Urine Bacteria (None Seen) /HPF Urine Culture Comments Nasal Adenovirus (PCR) Nasal B. parapertussis DNA (PCR) Nasal Coronavir 229E PCR Nasal Coronavir HKU1 PCR Nasal Coronavir NL63 PCR Nasal Coronavir OC43 PCR Nasal Enterovir/Rhinovir PCR Nasal Influenza B PCR Nasal Influenza A PCR Nasal Parainfluen 1 PCR Nasal Parainfluen 2 PCR Nasal Parainfluen 3 PCR Nasal Parainfluen 4 PCR Nasal RSV (PCR) Nasal Screen MRSA (PCR) (NEGATIVE) Nasal B.pertussis DNA PCR Nasal C.pneumoniae (PCR) Navjot Human Metapneumo PCR Nasal M.pneumoniae (PCR) Nasal SARS-CoV-2 (PCR) 12/06/22 12/06/22 12/06/22 Range/Units 21:59 20:07 18:26 WBC (4.8-10.8) x10^3/uL RBC (4.20-5.40) 10^6/uL Hgb (12.0-16.0) g/dL Hct (37.0-47.0) % MCV (81.0-99.0) fL MCH (27.0-31.0) pg MCHC (32.0-36.0) g/dL RDW (12.0-15.0) % Plt Count (130-450) 10^3/uL MPV (7.9-10.8) fL Neut # (Auto) Lymph # (Auto) Cannon # (Auto) Eos # (Auto) Baso # (Auto) Absolute Nucleated RBC Total Counted Band Neuts % (Manual) (0 - 10) % Abnorm Lymph % (Manual) % Metamyelocytes % ( - 0) % Nucleated RBC % Neutrophils # (Manual) (1.5-6.6) 10^3/uL Lymphocytes # (Manual) (1.5-3.5) 10^3/uL Monocytes # (Manual) (0.0-1.0) 10^3/uL Eosinophils # (Manual) (0-0.7) 10^3/uL Basophils # (Manual) (0-0.1) 10^3/uL Differential Comment WBC Morphology (NORMAL) Platelet Estimate (NORMAL) Platelet Morphology (NORMAL) RBC Morph Micro Appear (NORMAL) VBG pH (7.31-7.41) Ionized Calcium (1.15-1.33) mmol/L Sodium (135-145) mmol/L Potassium (3.5-5.0) mmol/L Chloride (101-111) mmol/L Carbon Dioxide (21-32) mmol/L Anion Gap (6-13) BUN (6-20) mg/dL Creatinine (0.4-1.0) mg/dL Estimated GFR (MDRD) (>89) Glucose (70-100) mg/dL Lactic Acid 5.7 H* (0.5-2.2) mmol/L Calcium (8.5-10.3) mg/dL Phosphorus (2.5-4.6) mg/dL Magnesium (1.7-2.8) mg/dL Total Bilirubin (0.2-1.0) mg/dL AST (10-42) IU/L ALT (10-60) IU/L Alkaline Phosphatase (42-121) IU/L Troponin I High Sens (2.3-14.8) ng/L Total Protein (6.7-8.2) g/dL Albumin (3.2-5.5) g/dL Globulin (2.1-4.2) g/dL Albumin/Globulin Ratio (1.0-2.2) Urine Color YELLOW Urine Clarity CLOUDY (CLEAR) Urine pH 6.0 (5.0-7.5) PH Ur Specific [place] 1.020 (1.002-1.030) Urine Protein NEGATIVE (NEGATIVE) mg/dL Urine Glucose (UA) NEGATIVE (NEGATIVE) mg/dL Urine Ketones NEGATIVE (NEGATIVE) mg/dL Urine Occult Blood MODERATE H (NEGATIVE) Urine Nitrite POSITIVE H (NEGATIVE) Urine Bilirubin NEGATIVE (NEGATIVE) Urine Urobilinogen 1 (NORMAL) (NORMAL) E.U./dL Ur Leukocyte Esterase TRACE H (NEGATIVE) Urine RBC 6-10 H (0-5) /HPF Urine WBC 11-25 H (0-5) /HPF Ur Squamous Epith Cells NONE SEEN (<= Few) Urine Bacteria Many H (None Seen) /HPF Urine Culture Comments INDICATED Nasal Adenovirus (PCR) Nasal B. parapertussis DNA (PCR) Nasal Coronavir 229E PCR Nasal Coronavir HKU1 PCR Nasal Coronavir NL63 PCR Nasal Coronavir OC43 PCR Nasal Enterovir/Rhinovir PCR Nasal Influenza B PCR Nasal Influenza A PCR Nasal Parainfluen 1 PCR Nasal Parainfluen 2 PCR Nasal Parainfluen 3 PCR Nasal Parainfluen 4 PCR Nasal RSV (PCR) Nasal Screen MRSA (PCR) NEGATIVE (NEGATIVE) Nasal B.pertussis DNA PCR Nasal C.pneumoniae (PCR) Navjot Human Metapneumo PCR Nasal M.pneumoniae (PCR) Nasal SARS-CoV-2 (PCR) 12/06/22 12/06/22 12/06/22 Range/Units 16:58 16:58 16:58 WBC 9.8 (4.8-10.8) x10^3/uL RBC 5.00 (4.20-5.40) 10^6/uL Hgb 13.7 (12.0-16.0) g/dL Hct 43.2 (37.0-47.0) % MCV 86.4 (81.0-99.0) fL MCH 27.4 (27.0-31.0) pg MCHC 31.7 L (32.0-36.0) g/dL RDW 13.9 (12.0-15.0) % Plt Count 158 (130-450) 10^3/uL MPV 9.3 (7.9-10.8) fL Neut # (Auto) Not Reportable Lymph # (Auto) Not Reportable Cannon # (Auto) Not Reportable Eos # (Auto) Not Reportable Baso # (Auto) Not Reportable Absolute Nucleated RBC Not Reportable Total Counted 100 Band Neuts % (Manual) 14 H (0 - 10) % Abnorm Lymph % (Manual) 0 % Metamyelocytes % ( - 0) % Nucleated RBC % Not Reportable Neutrophils # (Manual) 8.9 H (1.5-6.6) 10^3/uL Lymphocytes # (Manual) 0.6 L (1.5-3.5) 10^3/uL Monocytes # (Manual) 0.1 (0.0-1.0) 10^3/uL Eosinophils # (Manual) 0.2 (0-0.7) 10^3/uL Basophils # (Manual) 0.0 (0-0.1) 10^3/uL Differential Comment MANUAL DIFFERENTIAL WBC Morphology 3+ SMUDGE CELLS (NORMAL) Platelet Estimate NORMAL (130-450,000) (NORMAL) Platelet Morphology NORMAL APPEARANCE (NORMAL) RBC Morph Micro Appear NORMAL APPEARANCE (NORMAL) VBG pH (7.31-7.41) Ionized Calcium (1.15-1.33) mmol/L Sodium 140 (135-145) mmol/L Potassium 3.8 (3.5-5.0) mmol/L Chloride 106 (101-111) mmol/L Carbon Dioxide 22 (21-32) mmol/L Anion Gap 12.0 (6-13) BUN 24 H (6-20) mg/dL Creatinine 1.7 H (0.4-1.0) mg/dL Estimated GFR (MDRD) 29 L (>89) Glucose 166 H (70-100) mg/dL Lactic Acid 4.7 H* (0.5-2.2) mmol/L Calcium 8.5 (8.5-10.3) mg/dL Phosphorus (2.5-4.6) mg/dL Magnesium (1.7-2.8) mg/dL Total Bilirubin 0.4 (0.2-1.0) mg/dL AST 34 (10-42) IU/L ALT 18 (10-60) IU/L Alkaline Phosphatase 67 (42-121) IU/L Troponin I High Sens (2.3-14.8) ng/L Total Protein 7.2 (6.7-8.2) g/dL Albumin 3.5 (3.2-5.5) g/dL Globulin 3.7 (2.1-4.2) g/dL Albumin/Globulin Ratio 0.9 L (1.0-2.2) Urine Color Urine Clarity (CLEAR) Urine pH (5.0-7.5) PH Ur Specific [place] (1.002-1.030) Urine Protein (NEGATIVE) mg/dL Urine Glucose (UA) (NEGATIVE) mg/dL Urine Ketones (NEGATIVE) mg/dL Urine Occult Blood (NEGATIVE) Urine Nitrite (NEGATIVE) Urine Bilirubin (NEGATIVE) Urine Urobilinogen (NORMAL) E.U./dL Ur Leukocyte Esterase (NEGATIVE) Urine RBC (0-5) /HPF Urine WBC (0-5) /HPF Ur Squamous Epith Cells (<= Few) Urine Bacteria (None Seen) /HPF Urine Culture Comments Nasal Adenovirus (PCR) Nasal B. parapertussis DNA (PCR) Nasal Coronavir 229E PCR Nasal Coronavir HKU1 PCR Nasal Coronavir NL63 PCR Nasal Coronavir OC43 PCR Nasal Enterovir/Rhinovir PCR Nasal Influenza B PCR Nasal Influenza A PCR Nasal Parainfluen 1 PCR Nasal Parainfluen 2 PCR Nasal Parainfluen 3 PCR Nasal Parainfluen 4 PCR Nasal RSV (PCR) Nasal Screen MRSA (PCR) (NEGATIVE) Nasal B.pertussis DNA PCR Nasal C.pneumoniae (PCR) Navjot Human Metapneumo PCR Nasal M.pneumoniae (PCR) Nasal SARS-CoV-2 (PCR) 12/06/22 Range/Units 14:55 WBC (4.8-10.8) x10^3/uL RBC (4.20-5.40) 10^6/uL Hgb (12.0-16.0) g/dL Hct (37.0-47.0) % MCV (81.0-99.0) fL MCH (27.0-31.0) pg MCHC (32.0-36.0) g/dL RDW (12.0-15.0) % Plt Count (130-450) 10^3/uL MPV (7.9-10.8) fL Neut # (Auto) Lymph # (Auto) Cannon # (Auto) Eos # (Auto) Baso # (Auto) Absolute Nucleated RBC Total Counted Band Neuts % (Manual) (0 - 10) % Abnorm Lymph % (Manual) % Metamyelocytes % ( - 0) % Nucleated RBC % Neutrophils # (Manual) (1.5-6.6) 10^3/uL Lymphocytes # (Manual) (1.5-3.5) 10^3/uL Monocytes # (Manual) (0.0-1.0) 10^3/uL Eosinophils # (Manual) (0-0.7) 10^3/uL Basophils # (Manual) (0-0.1) 10^3/uL Differential Comment WBC Morphology (NORMAL) Platelet Estimate (NORMAL) Platelet Morphology (NORMAL) RBC Morph Micro Appear (NORMAL) VBG pH (7.31-7.41) Ionized Calcium (1.15-1.33) mmol/L Sodium (135-145) mmol/L Potassium (3.5-5.0) mmol/L Chloride (101-111) mmol/L Carbon Dioxide (21-32) mmol/L Anion Gap (6-13) BUN (6-20) mg/dL Creatinine (0.4-1.0) mg/dL Estimated GFR (MDRD) (>89) Glucose (70-100) mg/dL Lactic Acid (0.5-2.2) mmol/L Calcium (8.5-10.3) mg/dL Phosphorus (2.5-4.6) mg/dL Magnesium (1.7-2.8) mg/dL Total Bilirubin (0.2-1.0) mg/dL AST (10-42) IU/L ALT (10-60) IU/L Alkaline Phosphatase (42-121) IU/L Troponin I High Sens (2.3-14.8) ng/L Total Protein (6.7-8.2) g/dL Albumin (3.2-5.5) g/dL Globulin (2.1-4.2) g/dL Albumin/Globulin Ratio (1.0-2.2) Urine Color Urine Clarity (CLEAR) Urine pH (5.0-7.5) PH Ur Specific [place] (1.002-1.030) Urine Protein (NEGATIVE) mg/dL Urine Glucose (UA) (NEGATIVE) mg/dL Urine Ketones (NEGATIVE) mg/dL Urine Occult Blood (NEGATIVE) Urine Nitrite (NEGATIVE) Urine Bilirubin (NEGATIVE) Urine Urobilinogen (NORMAL) E.U./dL Ur Leukocyte Esterase (NEGATIVE) Urine RBC (0-5) /HPF Urine WBC (0-5) /HPF Ur Squamous Epith Cells (<= Few) Urine Bacteria (None Seen) /HPF Urine Culture Comments Nasal Adenovirus (PCR) NOT DETECTED Nasal B. parapertussis DNA (PCR) NOT DETECTED Nasal Coronavir 229E PCR NOT DETECTED Nasal Coronavir HKU1 PCR NOT DETECTED Nasal Coronavir NL63 PCR NOT DETECTED Nasal Coronavir OC43 PCR NOT DETECTED Nasal Enterovir/Rhinovir PCR NOT DETECTED Nasal Influenza B PCR NOT DETECTED Nasal Influenza A PCR NOT DETECTED Nasal Parainfluen 1 PCR NOT DETECTED Nasal Parainfluen 2 PCR NOT DETECTED Nasal Parainfluen 3 PCR NOT DETECTED Nasal Parainfluen 4 PCR NOT DETECTED Nasal RSV (PCR) NOT DETECTED Nasal Screen MRSA (PCR) (NEGATIVE) Nasal B.pertussis DNA PCR NOT DETECTED Nasal C.pneumoniae (PCR) NOT DETECTED Navjot Human Metapneumo PCR NOT DETECTED Nasal M.pneumoniae (PCR) NOT DETECTED Nasal SARS-CoV-2 (PCR) NOT DETECTED Sepsis Event Note (H) - Evaluation Current Stage of Sepsis: Septic shock Possible source of Sepsis: positive: Genitourinary Confirmed Source and Organism (if known) of Sepsis: Blood culture positive for Klebsiella species Sepsis Associated Organ Dysfunction: Organ dysfunction includes hypotension, leukocytosis with WBC of 40, DOUGH MIXER with presenting altered mental status/obtundation, possible cardiac given elevated troponins - Sepsis Criteria Sepsis Criteria: Recorded Heart Rate greater than 90 bpm, WBC count greater than 10% bands, WBC count greater than 12,000 or less than 4000, D[employer] M[employer]: altered consciousness (unrelated to primary neuro pathology), SBP drop more than 40mHg, SBP less than 90 mmHg, Metabolic: lactate > 2 mmol/L Assessment/Plan - Problem List (1) Bacteremia due to Klebsiella pneumoniae Impression: Patient presented to ED unresponsive and in septic shock Blood culture positive for Klebsiella on preliminary microbiology report We will continue IV ceftriaxone pending susceptibility (2) Sepsis Impression: Sepsis secondary to bacteremia likely due to UTI Patient hypotensive, with leukocytosis, elevated troponins, elevated lactic acid Resuscitative fluids given Patient hypotensive requiring Levophed Mentation has dramatically improved, patient is now awake and alert and oriented x3 though she does not recall being brought to the hospital and is unable to provide much history as to antecedent illness Continue to follow blood cultures currently Klebsiella Continue IV ceftriaxone Trend lactic acid until normal providing IV fluid resuscitation Qualifiers: Sepsis type: sepsis due to unspecified organism Sepsis acute organ dysfunction status: with acute organ dysfunction Severe sepsis acute organ dysfunction type: encephalopathy Severe sepsis shock status: with septic shock Qualified Code(s): A41.9 - Sepsis, unspecified organism; R65.21 - Severe sepsis with septic shock; G93.40 - Encephalopathy, unspecified (3) Lactic acidosis Impression: Secondary to sepsis as above Trending down Continue sepsis management as above repeat lactic acid until normal (4) Elevated troponin Impression: Patient with initial troponin over 600, followed by increase to troponin level greater than 800 Patient initially unable to provide history but now alert She denies current chest pain but states she has a hiatal hernia and she did gan ve chest pain 2 days ago and she attributed the chest pain to the hiatal hernia She denies any known history of CAD Spoke with Dr. Jossy gonzalez sap business analyst on-call at [facility] who felt that at this time can manage conservatively and treat sepsis as he thinks this is likely demand ischemia and recommends medical management, echocardiogram when available on Thursday, and referral for outpatient stress test. He recommends reconsulting if patient otherwise clinically deteriorates. He does not recommend anticoagulation at this time due to the risk of bleeding in the setting of sepsis. (5) Leukocytosis Impression: Initially WBC was normal Has increased to 40 Likely secondary to sepsis and stress reaction Continue management as above and trend labs (6) Acute kidney injury Impression: Creatinine 1.7 likely secondary to hypoperfusion in the setting of sepsis Also does have renal calculi which are not to be obstructive with mild hydronephrosis Continue medical management as above, trend labs, renally dose meds and avoid nephrotoxic agents (7) Right upper quadrant pain Impression: Patient with tenderness on right upper quadrant on exam Patient is status postcholecystectomy with no biliary abnormality noted on CT abdomen pelvis Labs do not suggest choledocholithiasis Continue serial abdominal exams and repeat labs accordingly and if clinically worsens consider ultrasound and/or MRCP (8) Hydronephrosis Impression: As above, mild, likely secondary to nonobstructive stone Continue management as above (9) Urinary tract infection Impression: As above Qualifiers: Urinary tract infection type: site unspecified Hematuria presence: without hematuria Qualified Code(s): N39.0 - Urinary tract infection, site not specified
[2022-12-07] MEDS: cefTRIAXone 1 GM in SODIUM CHLORIDE 0.9% MINIBAG 100 ML IV SCH ×2 (08:32→20:33)
[2022-12-07 08:33] LABS: LACTIC ACID, VENOUS 2.5 mmol/L (0.5-2.2); PHOSPHORUS 4.8 mg/dL (2.5-4.6); POTASSIUM 4.1 mmol/L (3.5-5.0)
[2022-12-07] MEDS: ENOXAPARIN 40 MG/0.4 ML SYRINGE SUBQ SCH (10:17)
[2022-12-07] MEDS: PANTOPRAZOLE 40 MG TABLET PO SCH (13:44)
[2022-12-07 15:18] LABS: LACTIC ACID, VENOUS 2.7 mmol/L (0.5-2.2)
[2022-12-07] MEDS ORDERED: SODIUM CHLORIDE 0.9% 500 ML IV ONE (16:16)
[2022-12-07] MEDS: ONDANSETRON 4 MG/2 ML VIAL IVP PRN (17:42)
[2022-12-07] MEDS: ACETAMINOPHEN 325 MG TABLET PO PRN (19:57)
[2022-12-08] MEDS: ACETAMINOPHEN 325 MG TABLET PO PRN ×2 (02:34→10:38)
[2022-12-08] MEDS: SODIUM CHLORIDE FLUSH 0.9% 10 ML SYRINGE IVP SCH ×3 (02:34→16:31)
[2022-12-08] MEDS ORDERED: traMADol 50 MG TABLET PO PRN (03:36)
[2022-12-08] MEDS: SODIUM CHLORIDE 0.9% 1,000 ML IV SCH (04:39)
[2022-12-08] MEDS: SODIUM CHLORIDE FLUSH 0.9% 10 ML SYRINGE IVP PRN ×4 (05:15→20:56)
[2022-12-08 05:31] LABS: BASOPHILS % (AUTO) 0.5 %; EOSINOPHILS % (AUTO) 0.4 %; HCT - HEMATOCRIT 29.7 % (37.0-47.0); HGB - HEMOGLOBIN 9.7 g/dL (12.0-16.0); LYMPHOCYTES % (AUTO) 3.4 %; MEAN CORPUSCULAR HEMOGLOBIN 27.9 pg (27.0-31.0); MEAN CORPUSCULAR HGB CONC 32.7 g/dL (32.0-36.0); MEAN CORPUSCULAR VOLUME 85.3 fL (81.0-99.0); MEAN PLATELET VOLUME 9.6 fL (7.9-10.8); MONOCYTES % (AUTO) 4.4 %; NEUTROPHILS % (AUTO) 80.5 %; PLT - PLATELET COUNT 68 10^3/uL (130-450); RED BLOOD COUNT 3.48 10^6/uL (4.20-5.40); RED CELL DISTRIBUTION WIDTH 14.7 % (12.0-15.0); WHITE BLOOD COUNT 19.2 x10^3/uL (4.8-10.8)
[2022-12-08 05:32] LABS: CALCIUM, IONIZED 1.06 mmol/L (1.15-1.33); VBG PH 7.313 (7.31-7.41)
[2022-12-08] MEDS ORDERED: CALCIUM GLUC 1,000MG/50ML-NACL 1,000 MG/50 ML BAG IV ONE ×2 (05:38→10:25)
[2022-12-08 05:39] LABS: ABNORMAL LYMPHS % (MANUAL) 0 %
[2022-12-08 05:47] LABS: MAGNESIUM 2.4 mg/dL (1.7-2.8); PHOSPHORUS 2.9 mg/dL (2.5-4.6)
[2022-12-08 05:50] LABS: BAND NEUTROPHILS % (MANUAL) 6 %; EOSINOPHILS # (MANUAL) 0.2 10^3/uL (0-0.7); LYMPHOCYTES # (MANUAL) 1.3 10^3/uL (1.5-3.5); LYMPHOCYTES % (MANUAL) 7 %; METAMYELOCYTES % (MANUAL) 1 %; MONOCYTES # (MANUAL) 0.2 10^3/uL (0.0-1.0); NEUTROPHILS # (MANUAL) 17.3 10^3/uL (1.5-6.6); PLATELET ESTIMATE, MANUAL DECREASED (<130,000) (NORMAL); PLATELET MORPHOLOGY NORMAL APPEARANCE (NORMAL); RBC MORPHOLOGY (MULTIPLE) NORMAL APPEARANCE (NORMAL)
[2022-12-08 05:51] LABS: DIFFERENTIAL COMMENT MANUAL DIFFERENTIAL; WBC MORPHOLOGY (MULTIPLE) NORMAL APPEARANCE (NORMAL)
[2022-12-08 05:53] LABS: ALBUMIN/GLOBULIN RATIO 0.8 (1.0-2.2); BILIRUBIN,TOTAL 0.4 mg/dL (0.2-1.0); CREATININE 1.2 mg/dL (0.4-1.0); POTASSIUM 3.8 mmol/L (3.5-5.0); TOTAL PROTEIN 4.6 g/dL (6.7-8.2)
[2022-12-08] MEDS ORDERED: POTASSIUM CHLOR 20 MEQ/100 ML 20 MEQ/100 ML BAG IV ONE (06:09)
[2022-12-08] MEDS: PANTOPRAZOLE 40 MG TABLET PO SCH (06:31)
[2022-12-08] MEDS: cefTRIAXone 1 GM in SODIUM CHLORIDE 0.9% MINIBAG 100 ML IV SCH ×2 (08:37→20:56)
[2022-12-08] MEDS: ENOXAPARIN 40 MG/0.4 ML SYRINGE SUBQ SCH (08:37)
[2022-12-08] MEDS: polyethylene glycoL 3350 17 GM PACKET PO SCH (08:37)
[2022-12-08 09:26] LABS: VBG PH 7.288 (7.31-7.41)
[2022-12-08 09:27] LABS: CALCIUM, IONIZED 1.1 mmol/L (1.15-1.33)
[2022-12-08] MEDS: DULoxetine 30 MG CAPSULE PO SCH (10:38)
[2022-12-08] MEDS: SOLIFENACIN SUCCINATE 5 MG TABLET PO SCH (10:38)
--- NOTE | 2022-12-08 13:20 | PROVIDER PROGRESS NOTE ---
Assessment/Plan - Problem List (1) Bacteremia due to Klebsiella pneumoniae Assessment/Plan: Patient presented to ED unresponsive and in septic shock Currently much improved, off Levophed since last evening Awake, alert, oriented out of the ICU Leukocytosis improving Blood culture positive for Klebsiella on preliminary microbiology report We will continue IV ceftriaxone pending susceptibility (2) Sepsis Qualifiers: Sepsis type: sepsis due to unspecified organism Sepsis acute organ dysfunction status: with acute organ dysfunction Severe sepsis acute organ dysfunction type: encephalopathy Severe sepsis shock status: with septic shock Qualified Code(s): A41.9 - Sepsis, unspecified organism; R65.21 - Severe sepsis with septic shock; G93.40 - Encephalopathy, unspecified Assessment/Plan: Sepsis secondary to bacteremia likely due to UTI On admission, patient hypotensive, requiring Levophed, with leukocytosis, elevated troponins, elevated lactic acid Resuscitative fluids given Still has leukocytosis, but vitals stable and normal LA - no longer meeting sepsis criteria Continue to follow blood cultures, currently Klebsiella pending sensitivities Continue IV ceftriaxone (3) Lactic acidosis Assessment/Plan: Resolved (4) Elevated troponin Assessment/Plan: Troponins have trended down, patient has had no chest pain Likely demand ischemia in the setting of sepsis Discussed with mold builder on-call Dr. Lozada at [facility], who felt patient did not require transfer, or anticoagulation but agrees with echocardiogram tomorrow and probable outpatient stress test (5) Leukocytosis Assessment/Plan: Secondary to bacteremia, UTI, as above Improving down from 40 to 19.9 (6) Acute kidney injury Assessment/Plan: Resolving Likely secondary to sepsis and hypoperfusion Creatinine nearly normal today at 1.2 Continue to trend (7) Right upper quadrant pain Assessment/Plan: Resolved (8) Hydronephrosis Assessment/Plan: As above, mild, likely secondary to nonobstructive stone Continue management as above (9) Urinary tract infection Qualifiers: Urinary tract infection type: site unspecified Hematuria presence: without hematuria Qualified Code(s): N39.0 - Urinary tract infection, site not specified - Current Meds Current Meds: Current Medications Generic Name Dose Route Start Last Admin Trade Name Freq PRN Reason Stop Dose Admin Acetaminophen 650 mg 12/06/22 20:25 12/08/22 10:38 Acetaminophen 325 Mg Tablet PO 650 mg Q4HR PRN Administration Pain 1 to 4, or Fever Duloxetine HCl 30 mg 12/08/22 09:45 12/08/22 10:38 Duloxetine 30 Mg Capsule PO 30 mg DAILY EVELYNE Administration Enoxaparin Sodium 40 mg 12/07/22 09:00 12/08/22 08:37 Enoxaparin 40 Mg/0.4 Ml Syringe SUBQ 40 mg DAILY EVELYNE Administration Ceftriaxone Sodium 1 gm/ 100 mls @ 200 mls/hr 12/07/22 09:00 12/08/22 09:17 Sodium Chloride IV Infused Q12H EVELYNE Infusion Ondansetron HCl 4 mg 12/06/22 20:25 12/07/22 17:42 Ondansetron 4 Mg/2 Ml Vial IVP 4 mg Q6HR PRN Administration Nausea / Vomiting Pantoprazole Sodium 40 mg 12/07/22 13:00 12/08/22 06:31 Pantoprazole 40 Mg Tablet PO 40 mg QDAC EVELYNE Administration Polyethylene Glycol 17 gm 12/08/22 09:00 12/08/22 08:37 Polyethylene Glycol 3350 17 Gm Packet PO 17 gm DAILY EVELYNE Administration Sodium Chloride 10 ml 12/07/22 01:00 12/08/22 08:37 Sodium Chloride Flush 0.9% 10 Ml Syringe IVP 10 ml 0100,0900,1700 EVELYNE Administration Sodium Chloride 10 ml 12/06/22 20:25 12/06/22 23:36 Sodium Chloride Flush 0.9% 10 Ml Syringe IVP 30 ml PRN PRN Administration NEEDED PER PROVIDER ORDERS Sodium Chloride 20 ml 12/07/22 00:02 12/08/22 05:15 Sodium Chloride Flush 0.9% 10 Ml Syringe IVP 20 ml PRN PRN Administration After Blood Draw Solifenacin 10 mg 12/08/22 09:45 12/08/22 10:38 Solifenacin Succinate 5 Mg Tablet PO 10 mg DAILY EVELYNE Administration Tramadol HCl 50 mg 12/08/22 03:36 12/08/22 06:31 Tramadol 50 Mg Tablet PO 12/09/22 03:35 50 mg ONCE PRN Administration Severe Pain (Level 7-10) - Lab Result Lab results reviewed: Yes Fish Bone Diagrams: 12/08/22 05:15 12/08/22 09:00 - Additional Planning My Orders: My Active Orders 12/07/22 13:00 Pantoprazole [Protonix] 40 mg PO QDAC 12/07/22 21:00 TROPONIN I HIGH SENSITIVITY [IAI] Q3HR 12/08/22 Evaluate and Treat OT [OT] Routine 12/08/22 09:34 Evaluate and Treat PT [PT] Routine 12/08/22 09:45 DULoxetine [Cymbalta] 30 mg PO DAILY Solifenacin Succinate [Vesicare] 10 mg PO DAILY 12/08/22 12:37 CALCIUM, IONIZED ([facility]) [BG] Timed 12/09/22 05:00 BMP - BASIC METABOLIC PANEL [CHEM] DAILYLAB CBC W/O DIFF (HEMOGRAM) [HEME] DAILYLAB 12/10/22 05:00 BMP - BASIC METABOLIC PANEL [CHEM] DAILYLAB CBC W/O DIFF (HEMOGRAM) [HEME] DAILYLAB 12/11/22 05:00 BMP - BASIC METABOLIC PANEL [CHEM] DAILYLAB CBC W/O DIFF (HEMOGRAM) [HEME] DAILYLAB Subjective - Subjective Patient Reports: Feeling Better Objective Vital Signs: Vital Signs - 24 hr 12/07/22 12/07/22 12/07/22 13:30 14:00 14:30 Temperature 37 C Heart Rate [ 98 99 99 Monitoring electrodes] Respiratory 23 22 23 Rate Blood Pressure 106/68 100/67 98/69 [Left Brachial artery] O2 Saturation 95 96 95 If not protocol : Oxygen Flow, liters/minute 12/07/22 12/07/22 12/07/22 15:00 15:30 16:00 Temperature Heart Rate [ 97 98 98 Monitoring electrodes] Respiratory 21 20 23 Rate Blood Pressure 95/61 98/59 L 94/62 [Left Brachial artery] O2 Saturation 98 93 94 If not protocol : Oxygen Flow, liters/minute 12/07/22 12/07/22 12/07/22 16:30 16:55 17:30 Temperature 36.7 C Heart Rate [ 96 102 H 109 H Monitoring electrodes] Respiratory 24 26 H 28 H Rate Blood Pressure 88/50 L 114/77 127/92 H [Left Brachial artery] O2 Saturation 93 95 95 If not protocol : Oxygen Flow, liters/minute 12/07/22 12/07/22 12/07/22 18:00 18:30 19:00 Temperature Heart Rate [ 106 H 109 H 110 H Monitoring electrodes] Respiratory 23 23 27 H Rate Blood Pressure 99/51 L 102/54 L 101/64 [Left Brachial artery] O2 Saturation 92 93 92 If not protocol : Oxygen Flow, liters/minute 12/07/22 12/07/22 12/07/22 19:30 20:00 20:30 Temperature 37.2 C Heart Rate [ 109 H 108 H 108 H Monitoring electrodes] Respiratory 23 20 23 Rate Blood Pressure 103/60 114/66 108/60 [Left Brachial artery] O2 Saturation 92 93 93 If not protocol : Oxygen Flow, liters/minute 12/07/22 12/07/22 12/07/22 20:40 20:45 20:50 Temperature Heart Rate [ 106 H 107 H 105 H Monitoring electrodes] Respiratory Rate Blood Pressure 100/53 L 102/52 L 97/46 L [Left Brachial artery] O2 Saturation If not protocol : Oxygen Flow, liters/minute 12/07/22 12/07/22 12/07/22 21:00 21:30 21:55 Temperature Heart Rate [ 108 H 104 H 102 H Monitoring electrodes] Respiratory 21 21 Rate Blood Pressure 98/53 L 99/56 L 94/52 L [Left Brachial artery] O2 Saturation 93 94 If not protocol : Oxygen Flow, liters/minute 12/07/22 12/07/22 12/07/22 22:00 22:15 22:30 Temperature Heart Rate [ 104 H 105 H 105 H Monitoring electrodes] Respiratory 19 20 Rate Blood Pressure 98/51 L 93/52 L 93/51 L [Left Brachial artery] O2 Saturation 90 L 98 If not protocol 4 : Oxygen Flow, liters/minute 12/07/22 12/07/22 12/07/22 22:45 23:00 23:24 Temperature 36.8 C Heart Rate [ 103 H 100 Monitoring electrodes] Respiratory 17 Rate Blood Pressure 94/53 L 113/66 [Left Brachial artery] O2 Saturation 97 If not protocol 4 : Oxygen Flow, liters/minute 12/07/22 12/08/22 12/08/22 23:30 00:00 01:00 Temperature Heart Rate [ 96 97 94 Monitoring electrodes] Respiratory 15 16 Rate Blood Pressure 90/50 L 104/49 L 97/55 L [Left Brachial artery] O2 Saturation 99 97 If not protocol 4 4 : Oxygen Flow, liters/minute 12/08/22 12/08/22 12/08/22 02:00 03:00 03:45 Temperature 36.4 C L Heart Rate [ 90 89 Monitoring electrodes] Respiratory 19 16 Rate Blood Pressure 97/60 103/67 [Left Brachial artery] O2 Saturation 97 97 If not protocol 2 2 : Oxygen Flow, liters/minute 12/08/22 12/08/22 12/08/22 04:00 05:09 06:00 Temperature Heart Rate [ 94 85 91 Monitoring electrodes] Respiratory 16 20 10 L Rate Blood Pressure 96/57 L 96/55 L 103/63 [Left Brachial artery] O2 Saturation 95 96 98 If not protocol 4 4 2 : Oxygen Flow, liters/minute 12/08/22 12/08/22 12/08/22 07:00 08:00 09:00 Temperature 36.5 C Heart Rate [ 91 92 85 Monitoring electrodes] Respiratory 17 19 22 Rate Blood Pressure 109/64 115/69 91/76 [Left Brachial artery] O2 Saturation 95 94 96 If not protocol : Oxygen Flow, liters/minute 12/08/22 12/08/22 12/08/22 10:00 11:00 12:00 Temperature 36.7 C Heart Rate [ 90 103 H 104 H Monitoring electrodes] Respiratory 20 20 16 Rate Blood Pressure 110/76 145/98 H 127/85 H [Left Brachial artery] O2 Saturation 95 95 94 If not protocol : Oxygen Flow, liters/minute Oxygen O2 Source Room air Oxygen Flow Rate 3 I&O (Last 24 Hrs): Intake and Output Totals x24h 12/06/22 12/07/22 12/08/22 23:59 23:59 23:59 Intake Total 4789.583 5731.668 2365.916 Output Total 1975 688 Balance 4789.583 3756.668 1677.916 General: Alert, Oriented x3 Neck: Supple Neuro: Alert, CN 2-12 Grossly Intact, Oriented Times 3 Cardiovascular: Regular rate, Normal S1, Normal S2 Abdomen: Normal bowel sounds, Soft, No tenderness, No hepatospenomegaly Extremities: Other (Trace edema bilateral lower extremities) Skin: No rashes - Results Results: Laboratory Results WBC 19.2 x10^3/uL (4.8-10.8) H 12/08/22 05:15 RBC 3.48 10^6/uL (4.20-5.40) L 12/08/22 05:15 Hgb 9.7 g/dL (12.0-16.0) L 12/08/22 05:15 Hct 29.7 % (37.0-47.0) L 12/08/22 05:15 MCV 85.3 fL (81.0-99.0) 12/08/22 05:15 MCH 27.9 pg (27.0-31.0) 12/08/22 05:15 MCHC 32.7 g/dL (32.0-36.0) 12/08/22 05:15 RDW 14.7 % (12.0-15.0) 12/08/22 05:15 Plt Count 68 10^3/uL (130-450) L 12/08/22 05:15 MPV 9.6 fL (7.9-10.8) 12/08/22 05:15 Neut # (Auto) Not Reportable 12/08/22 05:15 Lymph # (Auto) Not Reportable 12/08/22 05:15 [place] # (Auto) Not Reportable 12/08/22 05:15 Eos # (Auto) Not Reportable 12/08/22 05:15 Baso # (Auto) Not Reportable 12/08/22 05:15 Absolute Nucleated RBC Not Reportable 12/08/22 05:15 Total Counted 100 12/08/22 05:15 Band Neuts % (Manual) 6 % (0-10) 12/08/22 05:15 Abnorm Lymph % (Manual) 0 % 12/08/22 05:15 Metamyelocytes % 1 % (-0) H 12/08/22 05:15 Nucleated RBC % Not Reportable 12/08/22 05:15 Neutrophils # (Manual) 17.3 10^3/uL (1.5-6.6) H 12/08/22 05:15 Lymphocytes # (Manual) 1.3 10^3/uL (1.5-3.5) L 12/08/22 05:15 Monocytes # (Manual) 0.2 10^3/uL (0.0-1.0) 12/08/22 05:15 Eosinophils # (Manual) 0.2 10^3/uL (0-0.7) 12/08/22 05:15 Basophils # (Manual) 0.0 10^3/uL (0-0.1) 12/08/22 05:15 Differential Comment MANUAL DIFFERENTIAL 12/08/22 05:15 WBC Morphology NORMAL APPEARANCE (NORMAL) 12/08/22 05:15 Platelet Estimate DECREASED (<130,000) (NORMAL) 12/08/22 05:15 Platelet Morphology NORMAL APPEARANCE (NORMAL) 12/08/22 05:15 RBC Morph Micro Appear NORMAL APPEARANCE (NORMAL) 12/08/22 05:15 VBG pH 7.288 (7.31-7.41) L 12/08/22 09:00 Ionized Calcium 1.10 mmol/L (1.15-1.33) L 12/08/22 09:00 Sodium 141 mmol/L (135-145) 12/08/22 05:15 Potassium 4.2 mmol/L (3.5-5.0) 12/08/22 09:00 Chloride 118 mmol/L (101-111) H 12/08/22 05:15 Carbon Dioxide 22 mmol/L (21-32) 12/08/22 05:15 Anion Gap 1.0 (6-13) L 12/08/22 05:15 BUN 25 mg/dL (6-20) H 12/08/22 05:15 Creatinine 1.2 mg/dL (0.4-1.0) H 12/08/22 05:15 Estimated GFR (MDRD) 44 (>89) L 12/08/22 05:15 Glucose 81 mg/dL (70-100) 12/08/22 05:15 Lactic Acid 2.0 mmol/L (0.5-2.2) 12/07/22 20:44 Calcium 7.0 mg/dL (8.5-10.3) L 12/08/22 05:15 Phosphorus 2.9 mg/dL (2.5-4.6) 12/08/22 05:15 Magnesium 2.4 mg/dL (1.7-2.8) 12/08/22 05:15 Total Bilirubin 0.4 mg/dL (0.2-1.0) 12/08/22 05:15 AST 23 IU/L (10-42) 12/08/22 05:15 ALT 18 IU/L (10-60) 12/08/22 05:15 Alkaline Phosphatase 49 IU/L (42-121) 12/08/22 05:15 Troponin I High Sens 1161.7 ng/L (2.3-14.8) H* 12/08/22 05:15 Total Protein 4.6 g/dL (6.7-8.2) L 12/08/22 05:15 Albumin 2.0 g/dL (3.2-5.5) L 12/08/22 05:15 Globulin 2.6 g/dL (2.1-4.2) 12/08/22 05:15 Albumin/Globulin Ratio 0.8 (1.0-2.2) L 12/08/22 05:15 Urine Color YELLOW 12/06/22 18:26 Urine Clarity CLOUDY (CLEAR) 12/06/22 18:26 Urine pH 6.0 PH (5.0-7.5) 12/06/22 18:26 Ur Specific [place] 1.020 (1.002-1.030) 12/06/22 18:26 Urine Protein NEGATIVE mg/dL (NEGATIVE) 12/06/22 18:26 Urine Glucose (UA) NEGATIVE mg/dL (NEGATIVE) 12/06/22 18:26 Urine Ketones NEGATIVE mg/dL (NEGATIVE) 12/06/22 18:26 Urine Occult Blood MODERATE (NEGATIVE) H 12/06/22 18:26 Urine Nitrite POSITIVE (NEGATIVE) H 12/06/22 18:26 Urine Bilirubin NEGATIVE (NEGATIVE) 12/06/22 18:26 Urine Urobilinogen 1 (NORMAL) E.U./dL (NORMAL) 12/06/22 18:26 Ur Leukocyte Esterase TRACE (NEGATIVE) H 12/06/22 18:26 Urine RBC 6-10 /HPF (0-5) H 12/06/22 18:26 Urine WBC 11-25 /HPF (0-5) H 12/06/22 18:26 Ur Squamous Epith Cells NONE SEEN (<= Few) 12/06/22 18:26 Urine Bacteria Many /HPF (None Seen) H 12/06/22 18:26 Urine Culture Comments INDICATED 12/06/22 18:26 Nasal Adenovirus (PCR) NOT DETECTED 12/06/22 14:55 Nasal B. parapertussis DNA (PCR) NOT DETECTED 12/06/22 14:55 Nasal Coronavir 229E PCR NOT DETECTED 12/06/22 14:55 Nasal Coronavir HKU1 PCR NOT DETECTED 12/06/22 14:55 Nasal Coronavir NL63 PCR NOT DETECTED 12/06/22 14:55 Nasal Coronavir OC43 PCR NOT DETECTED 12/06/22 14:55 Nasal Enterovir/Rhinovir PCR NOT DETECTED 12/06/22 14:55 Nasal Influenza B PCR NOT DETECTED 12/06/22 14:55 Nasal Influenza A PCR NOT DETECTED 12/06/22 14:55 Nasal Parainfluen 1 PCR NOT DETECTED 12/06/22 14:55 Nasal Parainfluen 2 PCR NOT DETECTED 12/06/22 14:55 Nasal Parainfluen 3 PCR NOT DETECTED 12/06/22 14:55 Nasal Parainfluen 4 PCR NOT DETECTED 12/06/22 14:55 Nasal RSV (PCR) NOT DETECTED 12/06/22 14:55 Nasal Screen MRSA (PCR) NEGATIVE (NEGATIVE) 12/06/22 21:59 Nasal B.pertussis DNA PCR NOT DETECTED 12/06/22 14:55 Nasal C.pneumoniae (PCR) NOT DETECTED 12/06/22 14:55 Navjot Human Metapneumo PCR NOT DETECTED 12/06/22 14:55 Nasal M.pneumoniae (PCR) NOT DETECTED 12/06/22 14:55 Nasal SARS-CoV-2 (PCR) NOT DETECTED 12/06/22 14:55 Sepsis Event Note (H) - Evaluation Current Stage of Sepsis: Resolved Possible source of Sepsis: positive: Genitourinary - Sepsis Criteria Sepsis Criteria: Recorded Heart Rate greater than 90 bpm, WBC count greater than 10% bands, WBC count greater than 12,000 or less than 4000, [employer]: altered consciousness (unrelated to primary neuro pathology), SBP drop more than 40mHg, SBP less than 90 mmHg, Metabolic: lactate > 2 mmol/L ABX Reporting Has patient been on IV antibiotics over the past 48 hours?: Yes Current Medications - Current Medications Current Medications: Active Medications Generic Name Dose Route Start Last Admin Trade Name Freq PRN Reason Stop Dose Admin Acetaminophen 650 mg 12/06/22 20:25 12/08/22 10:38 Acetaminophen 325 Mg Tablet PO 650 mg Q4HR PRN Administration Pain 1 to 4, or Fever Duloxetine HCl 30 mg 12/08/22 09:45 12/08/22 10:38 Duloxetine 30 Mg Capsule PO 30 mg DAILY EVELYNE Administration Enoxaparin Sodium 40 mg 12/07/22 09:00 12/08/22 08:37 Enoxaparin 40 Mg/0.4 Ml Syringe SUBQ 40 mg DAILY EVELYNE Administration Ceftriaxone Sodium 1 gm/ 100 mls @ 200 mls/hr 12/07/22 09:00 12/08/22 09:17 Sodium Chloride IV Infused Q12H EVELYNE Infusion Ondansetron HCl 4 mg 12/06/22 20:25 12/07/22 17:42 Ondansetron 4 Mg/2 Ml Vial IVP 4 mg Q6HR PRN Administration Nausea / Vomiting Pantoprazole Sodium 40 mg 12/07/22 13:00 12/08/22 06:31 Pantoprazole 40 Mg Tablet PO 40 mg QDAC EVELYNE Administration Polyethylene Glycol 17 gm 12/08/22 09:00 12/08/22 08:37 Polyethylene Glycol 3350 17 Gm Packet PO 17 gm DAILY EVELYNE Administration Sodium Chloride 10 ml 12/07/22 01:00 12/08/22 08:37 Sodium Chloride Flush 0.9% 10 Ml Syringe IVP 10 ml 0100,0900,1700 EVELYNE Administration Sodium Chloride 10 ml 12/06/22 20:25 12/06/22 23:36 Sodium Chloride Flush 0.9% 10 Ml Syringe IVP 30 ml PRN PRN Administration NEEDED PER PROVIDER ORDERS Sodium Chloride 20 ml 12/07/22 00:02 12/08/22 05:15 Sodium Chloride Flush 0.9% 10 Ml Syringe IVP 20 ml PRN PRN Administration After Blood Draw Solifenacin 10 mg 12/08/22 09:45 12/08/22 10:38 Solifenacin Succinate 5 Mg Tablet PO 10 mg DAILY EVELYNE Administration Tramadol HCl 50 mg 12/08/22 03:36 12/08/22 06:31 Tramadol 50 Mg Tablet PO 12/09/22 03:35 50 mg ONCE PRN Administration Severe Pain (Level 7-10) DULoxetine [Cymbalta] 30 mg PO DAILY 12/07/22 Losartan [Cozaar] 50 mg PO DAILY 12/07/22 Nitrofurantoin Macrocrystal [Macrodantin] 50 mg PO DAILY 12/07/22 Omeprazole 40 mg PO QDAC 12/07/22 Oxybutynin Chloride [Ditropan Xl] 10 mg PO DAILY 12/07/22
[2022-12-08 13:39] LABS: CALCIUM, IONIZED 1.13 mmol/L (1.15-1.33); VBG PH 7.361 (7.31-7.41)
[2022-12-08] MEDS ORDERED: DICLOFENAC SODIUM 1% GEL 50 GM TUBE TOP PRN (14:29)
[2022-12-08] MEDS: DICLOFENAC SODIUM 1% GEL 50 GM TUBE TOP PRN (16:31)
[2022-12-08] MEDS: ONDANSETRON 4 MG/2 ML VIAL IVP PRN (23:39)
[2022-12-09] MEDS: SODIUM CHLORIDE FLUSH 0.9% 10 ML SYRINGE IVP PRN ×3 (05:00→20:35)
[2022-12-09] MEDS: SODIUM CHLORIDE FLUSH 0.9% 10 ML SYRINGE IVP SCH ×3 (05:00→20:30)
[2022-12-09 05:24] LABS: HCT - HEMATOCRIT 31.1 % (37.0-47.0); MEAN CORPUSCULAR HEMOGLOBIN 27.5 pg (27.0-31.0); MEAN CORPUSCULAR HGB CONC 32.2 g/dL (32.0-36.0); MEAN CORPUSCULAR VOLUME 85.7 fL (81.0-99.0); MEAN PLATELET VOLUME 10.7 fL (7.9-10.8); RED BLOOD COUNT 3.63 10^6/uL (4.20-5.40); RED CELL DISTRIBUTION WIDTH 14.7 % (12.0-15.0); WHITE BLOOD COUNT 15.2 x10^3/uL (4.8-10.8)
[2022-12-09 05:40] LABS: CALCIUM 7.5 mg/dL (8.5-10.3); CREATININE 0.9 mg/dL (0.4-1.0); POTASSIUM 3.9 mmol/L (3.5-5.0)
[2022-12-09] MEDS: DICLOFENAC SODIUM 1% GEL 50 GM TUBE TOP PRN ×2 (05:52→10:37)
[2022-12-09] MEDS: PANTOPRAZOLE 40 MG TABLET PO SCH (06:53)
[2022-12-09] MEDS: cefTRIAXone 1 GM in SODIUM CHLORIDE 0.9% MINIBAG 100 ML IV SCH ×2 (08:52→20:30)
[2022-12-09] MEDS: DULoxetine 30 MG CAPSULE PO SCH (08:55)
[2022-12-09] MEDS: ACETAMINOPHEN 325 MG TABLET PO PRN (10:37)
[2022-12-09] MEDS: polyethylene glycoL 3350 17 GM PACKET PO SCH (10:38)
[2022-12-09] MEDS: SOLIFENACIN SUCCINATE 5 MG TABLET PO SCH (10:38)
[2022-12-09] MEDS: ENOXAPARIN 40 MG/0.4 ML SYRINGE SUBQ SCH (10:38)
--- NOTE | 2022-12-09 13:27 | PROVIDER PROGRESS NOTE ---
Assessment/Plan - Problem List (1) Bacteremia due to Klebsiella pneumoniae Assessment/Plan: Patient presented to ED unresponsive and in septic shock. All labs were reviewed. Her Lactic acidosis has resolved. Leukocytosis improving She has improved, off Levophed and transferred out of ICU today. Awake, alert, oriented Blood culture positive for Klebsiella Plan: We will continue IV ceftriaxone pending susceptibility results Recheck of blood culture to be drawn today to assure there is no bacterial sugar wth (2) Urinary tract infection Qualifiers: Urinary tract infection type: site unspecified Hematuria presence: without hematuria Qualified Code(s): N39.0 - Urinary tract infection, site not specified This was felt to be the source of her bacteremnia Plan: As in #1 (3) Hydronephrosis Assessment/Plan: As above, mild, likely secondary to nonobstructive stone Plan: Continue management as above (4) Type 2 WI Assessment/Plan: Labs were all reviewed. Troponins have risen significantly: 621>> 838>> 1067>> 1382>> 2161>> 1161>> 957; this is more than a twofold increase of troponin 621 going up to 2161. Dr. Lozada at [facility] was contacted earlier this admission and he felt that she likely had demand ischemia in the setting of septic shock, and felt patient did not require transfer, or anticoagulation, but agreed with getting an Echocardiogram and probable outpatient stress test. No Echo has been done yet since we only have the Echo service here Tuesdays through . She had an admission EKG which showed tachycardia but otherwise not very remarkable. There has been no second EKG done. Plan: Awaiting an Echo. If new regional wall motion abnormalities are seen, she will not be stable for discharge or to await an outpatient stress test, and I would contact Cardiology again, start B-tasneem, nitrates, statin and ASA. Will also obtain a 2nd EKG, to look for changes, since the troponin peak occurred on the day after admission. (5) Weakness The patient reported to me today that she has no appetite then went into detail and said that yesterday and today when she was moved from bed into a chair, she had dry heaves and was nauseated when she was in the upright position. She could not remember if she was lightheaded. Following that, was when each of her meal trays arrived so she was not very hungry. PT and OT have started to work with her since yesterday and they stated that she is extremely debilitated and a SNF is recommended for rehab, which she agrees to Plan: We will adjust meds if any of them are making her bradycardic or if she is getting vasovagal We will order orthostatic vital sign checks Will also obtain a 2nd EKG, to look for changes of an WI, and an Echo is expected to be done today. Continue to work with PT and OT and discharge location will be to a SNF before returning home (6) Obesity, Class II, BMI 35-39.9 (E66.9) This complicates her care including her activity and working with PT (7) Acute kidney injury Assessment/Plan: Resolved Likely secondary to sepsis and hypoperfusion Creatinine normal today at 0.9 Plan: Continue to trend and avoid nephrotoxins (8) Right upper quadrant pain Assessment/Plan: Resolved (9) Severe sepsis with Septic shock R65.21 Qualifiers: Sepsis type: sepsis due to unspecified organism Sepsis acute organ dysfunction status: with acute organ dysfunction Severe sepsis acute organ dysfunction type: encephalopathy Severe sepsis shock status: with septic shock Qualified Code(s): A41.9 - Sepsis, unspecified organism; ; G93.40 - Encephalopathy, unspecified Assessment/Plan: Resolved Sepsis secondary to bacteremia likely from a UTI On admission, patient hypotensive, requiring Levophed, with leukocytosis, elevated lactic acid All labs were reviewed. Her WBC is improving down from 40 to 15.2 today - Current Meds Current Meds: Current Medications Generic Name Dose Route Start Last Admin Trade Name Freq PRN Reason Stop Dose Admin Acetaminophen 650 mg 12/06/22 20:25 12/09/22 10:37 Acetaminophen 325 Mg Tablet PO 650 mg Q4HR PRN Administration Pain 1 to 4, or Fever Diclofenac Sodium 2 gm 12/08/22 14:29 12/09/22 10:37 Diclofenac Sodium 1% Gel 50 Gm Tube TOP 2 gm QID PRN Administration Mild Pain (Level 1-3) Duloxetine HCl 30 mg 12/08/22 09:45 12/09/22 08:55 Duloxetine 30 Mg Capsule PO 30 mg DAILY EVELYNE Administration Enoxaparin Sodium 40 mg 12/07/22 09:00 12/09/22 10:38 Enoxaparin 40 Mg/0.4 Ml Syringe SUBQ Not Given DAILY EVELYNE Ceftriaxone Sodium 1 gm/ 100 mls @ 200 mls/hr 12/07/22 09:00 12/09/22 09:40 Sodium Chloride IV Infused Q12H EVELYNE Infusion Ondansetron HCl 4 mg 12/06/22 20:25 12/08/22 23:39 Ondansetron 4 Mg/2 Ml Vial IVP 4 mg Q6HR PRN Administration Nausea / Vomiting Pantoprazole Sodium 40 mg 12/07/22 13:00 12/09/22 06:53 Pantoprazole 40 Mg Tablet PO 40 mg QDAC EVELYNE Administration Polyethylene Glycol 17 gm 12/08/22 09:00 12/09/22 10:38 Polyethylene Glycol 3350 17 Gm Packet PO Not Given DAILY EVELYNE Sodium Chloride 10 ml 12/07/22 01:00 12/09/22 08:55 Sodium Chloride Flush 0.9% 10 Ml Syringe IVP 10 ml 0100,0900,1700 EVELYNE Administration Sodium Chloride 10 ml 12/06/22 20:25 12/09/22 10:37 Sodium Chloride Flush 0.9% 10 Ml Syringe IVP 10 ml PRN PRN Administration NEEDED PER PROVIDER ORDERS Solifenacin 10 mg 12/08/22 09:45 12/09/22 10:38 Solifenacin Succinate 5 Mg Tablet PO 10 mg DAILY EVELYNE Administration - Lab Result Fish Bone Diagrams: 12/09/22 05:15 12/09/22 05:15 - EKG Results EKG Interpreted Independently: Yes EKG Comparison: Changed from prior EKG EKG Findings: NSR, rate 89, early R/S transition. Since EKG from 12/06/2022, pt is now no longer tachycardic and early R/S transition is new. - Additional Planning My Orders: My Active Orders 12/09/22 07:47 Echo Transthoracic Complete [ECHO] Routine 12/09/22 07:58 CULTURE, BLOOD #1 [RM] Stat Subjective - Subjective Patient Reports: Fatigue (She feels "foggy" and very weak yesterday and today. She can only do her incentive spirometry several times.), Nausea (When she stood up with PT today, she had dry heaves but cannot remember if she was lightheaded. No orthostatic VS were done. Then she recalls this sx occurred yesterday as well, when she was lifted from out of bed using a [place] lift.) Objective Vital Signs: Vital Signs - 24 hr 12/08/22 12/08/22 12/08/22 14:00 15:00 16:00 Temperature Heart Rate [ 90 92 91 Monitoring electrodes] Respiratory 16 17 18 Rate Blood Pressure 126/75 95/61 108/67 [Left Brachial artery] Blood Pressure [Right Brachial artery] O2 Saturation 93 92 93 If not protocol : Oxygen Flow, liters/minute 12/08/22 12/08/22 12/08/22 16:22 18:00 20:24 Temperature 36.4 C L 36.6 C Heart Rate [ 87 95 Monitoring electrodes] Respiratory 24 17 Rate Blood Pressure [Left Brachial artery] Blood Pressure 107/88 H 134/77 H [Right Brachial artery] O2 Saturation 96 93 If not protocol : Oxygen Flow, liters/minute 12/08/22 12/09/22 12/09/22 22:00 00:00 04:00 Temperature 36.7 C Heart Rate [ 93 94 91 Monitoring electrodes] Respiratory 16 18 16 Rate Blood Pressure [Left Brachial artery] Blood Pressure 128/89 H 138/92 H 149/92 H [Right Brachial artery] O2 Saturation 95 If not protocol 2 : Oxygen Flow, liters/minute 12/09/22 12/09/22 12/09/22 08:00 11:16 11:30 Temperature 37.0 C 36.9 C 36.3 C L Heart Rate [ 88 77 80 Monitoring electrodes] Respiratory 21 21 20 Rate Blood Pressure [Left Brachial artery] Blood Pressure 154/95 H 148/93 H 140/86 H [Right Brachial artery] O2 Saturation 93 93 94 If not protocol 2 2 : Oxygen Flow, liters/minute Oxygen O2 Source Room air Oxygen Flow Rate 3 I&O (Last 24 Hrs): Intake and Output Totals x24h 12/07/22 12/08/22 12/09/22 23:59 23:59 23:59 Intake Total 5731.668 3055.916 300 Output Total 1975 688 800 Balance 3756.668 2367.916 -500 General: Alert, Oriented x3, Other (Appears tired) HEENT: Atraumatic, Mucous membr. moist/pink, Other (Obese WF) Neck: Supple, Other (Cannot evaluate JVP due to obese neck) Neuro: Alert, Non Focal Cardiovascular: Regular rate, Other (1-2/6 syst murmur) Respiratory: No respiratory distress, Other (Distant heart sounds, possibly due to obesity and large breasts) Abdomen: Soft, Other (Obese with a pannus) Extremities: No clubbing, No edema Skin: No rashes - Results Results: Laboratory Results WBC 15.2 x10^3/uL (4.8-10.8) H 12/09/22 05:15 RBC 3.63 10^6/uL (4.20-5.40) L 12/09/22 05:15 Hgb 10.0 g/dL (12.0-16.0) L 12/09/22 05:15 Hct 31.1 % (37.0-47.0) L 12/09/22 05:15 MCV 85.7 fL (81.0-99.0) 12/09/22 05:15 MCH 27.5 pg (27.0-31.0) 12/09/22 05:15 MCHC 32.2 g/dL (32.0-36.0) 12/09/22 05:15 RDW 14.7 % (12.0-15.0) 12/09/22 05:15 Plt Count 81 10^3/uL (130-450) L 12/09/22 05:15 MPV 10.7 fL (7.9-10.8) 12/09/22 05:15 Neut # (Auto) Not Reportable 12/08/22 05:15 Lymph # (Auto) Not Reportable 12/08/22 05:15 [place] # (Auto) Not Reportable 12/08/22 05:15 Eos # (Auto) Not Reportable 12/08/22 05:15 Baso # (Auto) Not Reportable 12/08/22 05:15 Absolute Nucleated RBC Not Reportable 12/08/22 05:15 Total Counted 100 12/08/22 05:15 Band Neuts % (Manual) 6 % (0-10) 12/08/22 05:15 Abnorm Lymph % (Manual) 0 % 12/08/22 05:15 Metamyelocytes % 1 % (-0) H 12/08/22 05:15 Nucleated RBC % Not Reportable 12/08/22 05:15 Neutrophils # (Manual) 17.3 10^3/uL (1.5-6.6) H 12/08/22 05:15 Lymphocytes # (Manual) 1.3 10^3/uL (1.5-3.5) L 12/08/22 05:15 Monocytes # (Manual) 0.2 10^3/uL (0.0-1.0) 12/08/22 05:15 Eosinophils # (Manual) 0.2 10^3/uL (0-0.7) 12/08/22 05:15 Basophils # (Manual) 0.0 10^3/uL (0-0.1) 12/08/22 05:15 Differential Comment MANUAL DIFFERENTIAL 12/08/22 05:15 WBC Morphology NORMAL APPEARANCE (NORMAL) 12/08/22 05:15 Platelet Estimate DECREASED (<130,000) (NORMAL) 12/08/22 05:15 Platelet Morphology NORMAL APPEARANCE (NORMAL) 12/08/22 05:15 RBC Morph Micro Appear NORMAL APPEARANCE (NORMAL) 12/08/22 05:15 VBG pH 7.361 (7.31-7.41) 12/08/22 13:30 Ionized Calcium 1.13 mmol/L (1.15-1.33) L 12/08/22 13:30 Sodium 137 mmol/L (135-145) 12/09/22 05:15 Potassium 3.9 mmol/L (3.5-5.0) 12/09/22 05:15 Chloride 113 mmol/L (101-111) H 12/09/22 05:15 Carbon Dioxide 22 mmol/L (21-32) 12/09/22 05:15 Anion Gap 2.0 (6-13) L 12/09/22 05:15 BUN 21 mg/dL (6-20) H 12/09/22 05:15 Creatinine 0.9 mg/dL (0.4-1.0) 12/09/22 05:15 Estimated GFR (MDRD) 61 (>89) L 12/09/22 05:15 Glucose 100 mg/dL (70-100) 12/09/22 05:15 Lactic Acid 2.0 mmol/L (0.5-2.2) 12/07/22 20:44 Calcium 7.5 mg/dL (8.5-10.3) L 12/09/22 05:15 Phosphorus 2.9 mg/dL (2.5-4.6) 12/08/22 05:15 Magnesium 2.4 mg/dL (1.7-2.8) 12/08/22 05:15 Total Bilirubin 0.4 mg/dL (0.2-1.0) 12/08/22 05:15 AST 23 IU/L (10-42) 12/08/22 05:15 ALT 18 IU/L (10-60) 12/08/22 05:15 Alkaline Phosphatase 49 IU/L (42-121) 12/08/22 05:15 Troponin I High Sens 665.7 ng/L (2.3-14.8) H* 12/08/22 20:22 Total Protein 4.6 g/dL (6.7-8.2) L 12/08/22 05:15 Albumin 2.0 g/dL (3.2-5.5) L 12/08/22 05:15 Globulin 2.6 g/dL (2.1-4.2) 12/08/22 05:15 Albumin/Globulin Ratio 0.8 (1.0-2.2) L 12/08/22 05:15 Urine Color YELLOW 12/06/22 18:26 Urine Clarity CLOUDY (CLEAR) 12/06/22 18:26 Urine pH 6.0 PH (5.0-7.5) 12/06/22 18:26 Ur Specific [place] 1.020 (1.002-1.030) 12/06/22 18:26 Urine Protein NEGATIVE mg/dL (NEGATIVE) 12/06/22 18:26 Urine Glucose (UA) NEGATIVE mg/dL (NEGATIVE) 12/06/22 18:26 Urine Ketones NEGATIVE mg/dL (NEGATIVE) 12/06/22 18:26 Urine Occult Blood MODERATE (NEGATIVE) H 12/06/22 18:26 Urine Nitrite POSITIVE (NEGATIVE) H 12/06/22 18:26 Urine Bilirubin NEGATIVE (NEGATIVE) 12/06/22 18:26 Urine Urobilinogen 1 (NORMAL) E.U./dL (NORMAL) 12/06/22 18:26 Ur Leukocyte Esterase TRACE (NEGATIVE) H 12/06/22 18:26 Urine RBC 6-10 /HPF (0-5) H 12/06/22 18:26 Urine WBC 11-25 /HPF (0-5) H 12/06/22 18:26 Ur Squamous Epith Cells NONE SEEN (<= Few) 12/06/22 18:26 Urine Bacteria Many /HPF (None Seen) H 12/06/22 18:26 Urine Culture Comments INDICATED 12/06/22 18:26 Nasal Adenovirus (PCR) NOT DETECTED 12/06/22 14:55 Nasal B. parapertussis DNA (PCR) NOT DETECTED 12/06/22 14:55 Nasal Coronavir 229E PCR NOT DETECTED 12/06/22 14:55 Nasal Coronavir HKU1 PCR NOT DETECTED 12/06/22 14:55 Nasal Coronavir NL63 PCR NOT DETECTED 12/06/22 14:55 Nasal Coronavir OC43 PCR NOT DETECTED 12/06/22 14:55 Nasal Enterovir/Rhinovir PCR NOT DETECTED 12/06/22 14:55 Nasal Influenza B PCR NOT DETECTED 12/06/22 14:55 Nasal Influenza A PCR NOT DETECTED 12/06/22 14:55 Nasal Parainfluen 1 PCR NOT DETECTED 12/06/22 14:55 Nasal Parainfluen 2 PCR NOT DETECTED 12/06/22 14:55 Nasal Parainfluen 3 PCR NOT DETECTED 12/06/22 14:55 Nasal Parainfluen 4 PCR NOT DETECTED 12/06/22 14:55 Nasal RSV (PCR) NOT DETECTED 12/06/22 14:55 Nasal Screen MRSA (PCR) NEGATIVE (NEGATIVE) 12/06/22 21:59 Nasal B.pertussis DNA PCR NOT DETECTED 12/06/22 14:55 Nasal C.pneumoniae (PCR) NOT DETECTED 12/06/22 14:55 Navjot Human Metapneumo PCR NOT DETECTED 12/06/22 14:55 Nasal M.pneumoniae (PCR) NOT DETECTED 12/06/22 14:55 Nasal SARS-CoV-2 (PCR) NOT DETECTED 12/06/22 14:55 Sepsis Event Note (H) - Evaluation Current Stage of Sepsis: Resolved Possible source of Sepsis: positive: Genitourinary - Sepsis Criteria Sepsis Criteria: Recorded Heart Rate greater than 90 bpm, WBC count greater than 10% bands, WBC count greater than 12,000 or less than 4000, CABLE [employer]: altered consciousness (unrelated to primary neuro pathology), SBP drop more than 40mHg, SBP less than 90 mmHg, Metabolic: lactate > 2 mmol/L
[2022-12-10] MEDS: SODIUM CHLORIDE FLUSH 0.9% 10 ML SYRINGE IVP SCH ×3 (04:33→16:05)
[2022-12-10 04:53] LABS: HCT - HEMATOCRIT 31.5 % (37.0-47.0); HGB - HEMOGLOBIN 10.3 g/dL (12.0-16.0); MEAN CORPUSCULAR HEMOGLOBIN 27.8 pg (27.0-31.0); MEAN CORPUSCULAR HGB CONC 32.7 g/dL (32.0-36.0); MEAN CORPUSCULAR VOLUME 84.9 fL (81.0-99.0); MEAN PLATELET VOLUME 10.9 fL (7.9-10.8); RED BLOOD COUNT 3.71 10^6/uL (4.20-5.40); RED CELL DISTRIBUTION WIDTH 14.6 % (12.0-15.0); WHITE BLOOD COUNT 10.6 x10^3/uL (4.8-10.8)
[2022-12-10 05:01] LABS: CALCIUM 6.7 mg/dL (8.5-10.3); CREATININE 0.6 mg/dL (0.4-1.0); POTASSIUM 3.4 mmol/L (3.5-5.0)
[2022-12-10] MEDS: PANTOPRAZOLE 40 MG TABLET PO SCH (06:39)
[2022-12-10] MEDS: polyethylene glycoL 3350 17 GM PACKET PO SCH (08:27)
[2022-12-10] MEDS: DULoxetine 30 MG CAPSULE PO SCH (08:27)
[2022-12-10] MEDS: SOLIFENACIN SUCCINATE 5 MG TABLET PO SCH (08:27)
[2022-12-10] MEDS: ENOXAPARIN 40 MG/0.4 ML SYRINGE SUBQ SCH (08:28)
[2022-12-10] MEDS: cefTRIAXone 1 GM in SODIUM CHLORIDE 0.9% MINIBAG 100 ML IV SCH (08:39)
[2022-12-10] MEDS ORDERED: FUROSEMIDE 20 MG/2 ML VIAL IVP STA (09:20)
--- NOTE | 2022-12-10 09:20 | PROVIDER PROGRESS NOTE ---
Assessment/Plan - Problem List (1) Bacteremia due to Klebsiella pneumoniae Assessment/Plan: Patient presented to ED unresponsive and in septic shock. All labs were reviewed. Her Lactic acidosis has resolved. Leukocytosis improving She has improved, off Levophed and transferred out of ICU today. Awake, alert, oriented Blood culture positive for Klebsiella Plan: We will continue IV ceftriaxone pending susceptibility results Recheck of blood culture to be drawn today to assure there is no bacterial sugar wth (2) Urinary tract infection Qualifiers: Urinary tract infection type: site unspecified Hematuria presence: without hematuria Qualified Code(s): N39.0 - Urinary tract infection, site not specified This was felt to be the source of her bacteremia Plan: As in #1 (3) Conjunctivitis She has scleral injection, and purulent debris near lacrimal duct Plan: Will start Gentamicin eye drops (4) Type 2 AK Assessment/Plan: Labs were all reviewed. Troponins have risen significantly: 621>> 838>> 1067>> 1382>> 2161>> 1161>> 957; this is more than a twofold increase of troponin 621 going up to 2161. Dr. Lozada at [facility] was contacted earlier this admission and he felt that she likely had demand ischemia in the setting of septic shock, and felt patient did not require transfer, or anticoagulation, but agreed with getting an Echocardiogram and probable outpatient stress test. No Echo has been done yet since we only have the Echo service here Tuesdays through . She had an admission EKG which showed tachycardia but otherwise not very remarkable. A second EKG was done yesterday 12/09 and it did show new early R/S Her Echo was done yesterday 12/09 and did not show regional LV wall motion abnormalities. If new regional LV wall motion abnormalities were seen, she would not have been stable for discharge to await an outpatient stress test. Plan: Will plan an outpatient stress test. Will give Lasix IV to help with the fluid overload seen in the IVC on that Echo, which was likely caused be getting aggressive IV fluid resuscitation when she had septic shock (5) Weakness The patient reports that she has no appetite. When she was moved from bed into a chair, she had dry heaves and was nauseated when she was in the upright position. She could not remember if she was lightheaded. Following that, was when each of her meal trays arrived so she was not very hungry. 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 It also showed that her IVC is dilated and she has pulm hypertension with PA pressure 50 mmHg. With this finding I suspect she has obesity hypoventilation syndrome. She reports snoring but was never told she has apnea. Alternatively she could have had a pure RV AK (see #4). In addition, she has 4+ dependant edema, after receiving iv aggressive IV fluid resuscitation, to treat septic shock Plan: Her med list was reviewed, she is not on any IV fluids any longer We will start daily Lasix IV to help with the fluid overload in the IVC and her legs. (8) Hydronephrosis Assessment/Plan: Mild, likely secondary to nonobstructive stone Plan: Continue management as above in #1 & 2. (9) Acute kidney injury Assessment/Plan: Resolved Likely secondary to sepsis and hypoperfusion Labs were all reviewed and her creatinine is normal now Plan: Continue to avoid nephrotoxins (10) Right upper quadrant pain Assessment/Plan: Resolved (11) Severe sepsis with Septic shock R65.21 Qualifiers: Sepsis type: sepsis due to unspecified organism Sepsis acute organ dysfunction status: with acute organ dysfunction Severe sepsis acute organ dysfunction type: encephalopathy Severe sepsis shock status: with septic shock Qualified Code(s): A41.9 - Sepsis, unspecified organism; ; G93.40 - Encephalopathy, unspecified Assessment/Plan: Resolved Sepsis secondary to bacteremia likely from a UTI On admission, patient hypotensive, requiring Levophed, with leukocytosis, elevated lactic acid All labs were reviewed. Her WBC is improving down from 40 to 10 today - Current Meds Current Meds: Current Medications Generic Name Dose Route Start Last Admin Trade Name Freq PRN Reason Stop Dose Admin Acetaminophen 650 mg 12/06/22 20:25 12/09/22 10:37 Acetaminophen 325 Mg Tablet PO 650 mg Q4HR PRN Administration Pain 1 to 4, or Fever Diclofenac Sodium 2 gm 12/08/22 14:29 12/09/22 10:37 Diclofenac Sodium 1% Gel 50 Gm Tube TOP 2 gm QID PRN Administration Mild Pain (Level 1-3) Duloxetine HCl 30 mg 12/08/22 09:45 12/10/22 08:27 Duloxetine 30 Mg Capsule PO 30 mg DAILY EVELYNE Administration Enoxaparin Sodium 40 mg 12/07/22 09:00 12/10/22 08:28 Enoxaparin 40 Mg/0.4 Ml Syringe SUBQ 40 mg DAILY EVELYNE Administration Ceftriaxone Sodium 1 gm/ 100 mls @ 200 mls/hr 12/07/22 09:00 12/10/22 08:39 Sodium Chloride IV 200 mls/hr Q12H EVELYNE Administration Ondansetron HCl 4 mg 12/06/22 20:25 12/08/22 23:39 Ondansetron 4 Mg/2 Ml Vial IVP 4 mg Q6HR PRN Administration Nausea / Vomiting Pantoprazole Sodium 40 mg 12/07/22 13:00 12/10/22 06:39 Pantoprazole 40 Mg Tablet PO 40 mg QDAC EVELYNE Administration Polyethylene Glycol 17 gm 12/08/22 09:00 12/10/22 08:27 Polyethylene Glycol 3350 17 Gm Packet PO Not Given DAILY EVELYNE Sodium Chloride 10 ml 12/07/22 01:00 12/10/22 08:28 Sodium Chloride Flush 0.9% 10 Ml Syringe IVP Not Given 0100,0900,1700 EVELYNE Sodium Chloride 10 ml 12/06/22 20:25 12/09/22 20:35 Sodium Chloride Flush 0.9% 10 Ml Syringe IVP 10 ml PRN PRN Administration NEEDED PER PROVIDER ORDERS Solifenacin 10 mg 12/08/22 09:45 12/10/22 08:27 Solifenacin Succinate 5 Mg Tablet PO 10 mg DAILY EVELYNE Administration - Lab Result Fish Bone Diagrams: 12/10/22 04:35 12/10/22 04:35 - Additional Planning My Orders: My Active Orders 12/10/22 10:00 Losartan [Cozaar] 50 mg PO DAILY Subjective - Subjective Patient Reports: Other (Still has no appetite. Has pain in legs, and noticed swelling) Objective Vital Signs: Vital Signs - 24 hr 12/09/22 12/09/22 12/09/22 11:16 11:30 13:25 Temperature 36.9 C 36.3 C L 36.7 C Heart Rate [ Brachial] Heart Rate [ 77 80 Monitoring electrodes] Heart Rate [ 87 Radial] Respiratory 21 20 16 Rate Blood Pressure 148/93 H 140/86 H 132/79 H [Right Brachial artery] O2 Saturation 93 94 94 If not protocol 2 : Oxygen Flow, liters/minute 12/09/22 12/09/22 12/09/22 16:03 20:02 23:27 Temperature 36.4 C L 37.0 C 36.9 C Heart Rate [ 96 Brachial] Heart Rate [ 80 Monitoring electrodes] Heart Rate [ 85 Radial] Respiratory 16 16 16 Rate Blood Pressure 147/81 H 150/86 H 145/88 H [Right Brachial artery] O2 Saturation 97 95 94 If not protocol : Oxygen Flow, liters/minute 12/10/22 12/10/22 05:00 08:42 Temperature 36.7 C 36.3 C L Heart Rate [ 92 Brachial] Heart Rate [ Monitoring electrodes] Heart Rate [ 85 Radial] Respiratory 16 18 Rate Blood Pressure 152/91 H 141/93 H [Right Brachial artery] O2 Saturation 93 95 If not protocol : Oxygen Flow, liters/minute Oxygen O2 Source Room air Oxygen Flow Rate 3 I&O (Last 24 Hrs): Intake and Output Totals x24h 12/08/22 12/09/22 12/10/22 23:59 23:59 23:59 Intake Total 3055.916 1270 0 Output Total 688 1300 500 Balance 2367.916 -30 -500 General: Alert, Oriented x3 HEENT: Mucous membr. moist/pink, Other (She has scleral injection, and purulent debris near lacrimal duct) Neck: Supple, Other (Cannot evaluate JVP due to obese neck) Neuro: Alert, Non Focal Cardiovascular: Regular rate Respiratory: No respiratory distress Abdomen: Soft, Other (Obese with a pannus) Extremities: No clubbing, Other (4+ edema of lower legs then up posterior thighs to buttocks, tender shins) - Results Results: Laboratory Results WBC 10.6 x10^3/uL (4.8-10.8) 12/10/22 04:35 RBC 3.71 10^6/uL (4.20-5.40) L 12/10/22 04:35 Hgb 10.3 g/dL (12.0-16.0) L 12/10/22 04:35 Hct 31.5 % (37.0-47.0) L 12/10/22 04:35 MCV 84.9 fL (81.0-99.0) 12/10/22 04:35 MCH 27.8 pg (27.0-31.0) 12/10/22 04:35 MCHC 32.7 g/dL (32.0-36.0) 12/10/22 04:35 RDW 14.6 % (12.0-15.0) 12/10/22 04:35 Plt Count 100 10^3/uL (130-450) L 12/10/22 04:35 MPV 10.9 fL (7.9-10.8) H 12/10/22 04:35 Neut # (Auto) Not Reportable 12/08/22 05:15 Lymph # (Auto) Not Reportable 12/08/22 05:15 [place] # (Auto) Not Reportable 12/08/22 05:15 Eos # (Auto) Not Reportable 12/08/22 05:15 Baso # (Auto) Not Reportable 12/08/22 05:15 Absolute Nucleated RBC Not Reportable 12/08/22 05:15 Total Counted 100 12/08/22 05:15 Band Neuts % (Manual) 6 % (0-10) 12/08/22 05:15 Abnorm Lymph % (Manual) 0 % 12/08/22 05:15 Metamyelocytes % 1 % (-0) H 12/08/22 05:15 Nucleated RBC % Not Reportable 12/08/22 05:15 Neutrophils # (Manual) 17.3 10^3/uL (1.5-6.6) H 12/08/22 05:15 Lymphocytes # (Manual) 1.3 10^3/uL (1.5-3.5) L 12/08/22 05:15 Monocytes # (Manual) 0.2 10^3/uL (0.0-1.0) 12/08/22 05:15 Eosinophils # (Manual) 0.2 10^3/uL (0-0.7) 12/08/22 05:15 Basophils # (Manual) 0.0 10^3/uL (0-0.1) 12/08/22 05:15 Differential Comment MANUAL DIFFERENTIAL 12/08/22 05:15 WBC Morphology NORMAL APPEARANCE (NORMAL) 12/08/22 05:15 Platelet Estimate DECREASED (<130,000) (NORMAL) 12/08/22 05:15 Platelet Morphology NORMAL APPEARANCE (NORMAL) 12/08/22 05:15 RBC Morph Micro Appear NORMAL APPEARANCE (NORMAL) 12/08/22 05:15 VBG pH 7.361 (7.31-7.41) 12/08/22 13:30 Ionized Calcium 1.13 mmol/L (1.15-1.33) L 12/08/22 13:30 Sodium 141 mmol/L (135-145) 12/10/22 04:35 Potassium 3.4 mmol/L (3.5-5.0) L 12/10/22 04:35 Chloride 113 mmol/L (101-111) H 12/10/22 04:35 Carbon Dioxide 22 mmol/L (21-32) 12/10/22 04:35 Anion Gap 6.0 (6-13) 12/10/22 04:35 BUN 11 mg/dL (6-20) 12/10/22 04:35 Creatinine 0.6 mg/dL (0.4-1.0) 12/10/22 04:35 Estimated GFR (MDRD) 98 (>89) 12/10/22 04:35 Glucose 89 mg/dL (70-100) 12/10/22 04:35 Lactic Acid 2.0 mmol/L (0.5-2.2) 12/07/22 20:44 Calcium 6.7 mg/dL (8.5-10.3) L 12/10/22 04:35 Phosphorus 2.9 mg/dL (2.5-4.6) 12/08/22 05:15 Magnesium 2.4 mg/dL (1.7-2.8) 12/08/22 05:15 Total Bilirubin 0.4 mg/dL (0.2-1.0) 12/08/22 05:15 AST 23 IU/L (10-42) 12/08/22 05:15 ALT 18 IU/L (10-60) 12/08/22 05:15 Alkaline Phosphatase 49 IU/L (42-121) 12/08/22 05:15 Troponin I High Sens 665.7 ng/L (2.3-14.8) H* 12/08/22 20:22 Total Protein 4.6 g/dL (6.7-8.2) L 12/08/22 05:15 Albumin 2.0 g/dL (3.2-5.5) L 12/08/22 05:15 Globulin 2.6 g/dL (2.1-4.2) 12/08/22 05:15 Albumin/Globulin Ratio 0.8 (1.0-2.2) L 12/08/22 05:15 Urine Color YELLOW 12/06/22 18:26 Urine Clarity CLOUDY (CLEAR) 12/06/22 18:26 Urine pH 6.0 PH (5.0-7.5) 12/06/22 18:26 Ur Specific [place] 1.020 (1.002-1.030) 12/06/22 18:26 Urine Protein NEGATIVE mg/dL (NEGATIVE) 12/06/22 18:26 Urine Glucose (UA) NEGATIVE mg/dL (NEGATIVE) 12/06/22 18:26 Urine Ketones NEGATIVE mg/dL (NEGATIVE) 12/06/22 18:26 Urine Occult Blood MODERATE (NEGATIVE) H 12/06/22 18:26 Urine Nitrite POSITIVE (NEGATIVE) H 12/06/22 18:26 Urine Bilirubin NEGATIVE (NEGATIVE) 12/06/22 18:26 Urine Urobilinogen 1 (NORMAL) E.U./dL (NORMAL) 12/06/22 18:26 Ur Leukocyte Esterase TRACE (NEGATIVE) H 12/06/22 18:26 Urine RBC 6-10 /HPF (0-5) H 12/06/22 18:26 Urine WBC 11-25 /HPF (0-5) H 12/06/22 18:26 Ur Squamous Epith Cells NONE SEEN (<= Few) 12/06/22 18:26 Urine Bacteria Many /HPF (None Seen) H 12/06/22 18:26 Urine Culture Comments INDICATED 12/06/22 18:26 Nasal Adenovirus (PCR) NOT DETECTED 12/06/22 14:55 Nasal B. parapertussis DNA (PCR) NOT DETECTED 12/06/22 14:55 Nasal Coronavir 229E PCR NOT DETECTED 12/06/22 14:55 Nasal Coronavir HKU1 PCR NOT DETECTED 12/06/22 14:55 Nasal Coronavir NL63 PCR NOT DETECTED 12/06/22 14:55 Nasal Coronavir OC43 PCR NOT DETECTED 12/06/22 14:55 Nasal Enterovir/Rhinovir PCR NOT DETECTED 12/06/22 14:55 Nasal Influenza B PCR NOT DETECTED 12/06/22 14:55 Nasal Influenza A PCR NOT DETECTED 12/06/22 14:55 Nasal Parainfluen 1 PCR NOT DETECTED 12/06/22 14:55 Nasal Parainfluen 2 PCR NOT DETECTED 12/06/22 14:55 Nasal Parainfluen 3 PCR NOT DETECTED 12/06/22 14:55 Nasal Parainfluen 4 PCR NOT DETECTED 12/06/22 14:55 Nasal RSV (PCR) NOT DETECTED 12/06/22 14:55 Nasal Screen MRSA (PCR) NEGATIVE (NEGATIVE) 12/06/22 21:59 Nasal B.pertussis DNA PCR NOT DETECTED 12/06/22 14:55 Nasal C.pneumoniae (PCR) NOT DETECTED 12/06/22 14:55 Navjot Human Metapneumo PCR NOT DETECTED 12/06/22 14:55 Nasal M.pneumoniae (PCR) NOT DETECTED 12/06/22 14:55 Nasal SARS-CoV-2 (PCR) NOT DETECTED 12/06/22 14:55 Sepsis Event Note (H) - Evaluation Current Stage of Sepsis: Resolved Possible source of Sepsis: positive: Genitourinary - Sepsis Criteria Sepsis Criteria: Recorded Heart Rate greater than 90 bpm, WBC count greater than 10% bands, WBC count greater than 12,000 or less than 4000, [employer]: altered consciousness (unrelated to primary neuro pathology), SBP drop more than 40mHg, SBP less than 90 mmHg, Metabolic: lactate > 2 mmol/L
[2022-12-10] MEDS ORDERED: cefTRIAXone 1 GM in SODIUM CHLORIDE 0.9% MINIBAG 100 ML IV ONE (10:00)
[2022-12-10] MEDS ORDERED: CARBOXYMETHYLCELLULOSE OPHTH DROPS EACHEYE PRN (10:18)
[2022-12-10] MEDS: LOSARTAN 50 MG TABLET PO SCH (10:22)
[2022-12-10] MEDS: GENTAMICIN 0.3% OPHTH DROPS RIGHTEYE SCH ×2 (11:01→21:33)
[2022-12-10] MEDS: POTASSIUM CHLORIDE 10 MEQ CAPSULE PO SCH (11:57)
[2022-12-10] MEDS: SODIUM CHLORIDE FLUSH 0.9% 10 ML SYRINGE IVP PRN (19:28)
[2022-12-10] MEDS: DICLOFENAC SODIUM 1% GEL 50 GM TUBE TOP PRN (21:34)
[2022-12-11] MEDS: SODIUM CHLORIDE FLUSH 0.9% 10 ML SYRINGE IVP SCH ×4 (01:59→23:52)
[2022-12-11] MEDS: FUROSEMIDE 20 MG/2 ML VIAL IVP SCH (05:26)
[2022-12-11] MEDS: PANTOPRAZOLE 40 MG TABLET PO SCH (05:26)
[2022-12-11 05:46] LABS: HCT - HEMATOCRIT 32.1 % (37.0-47.0); HGB - HEMOGLOBIN 10.3 g/dL (12.0-16.0); MEAN CORPUSCULAR HGB CONC 32.1 g/dL (32.0-36.0); MEAN CORPUSCULAR VOLUME 84.3 fL (81.0-99.0); MEAN PLATELET VOLUME 10.6 fL (7.9-10.8); RED BLOOD COUNT 3.81 10^6/uL (4.20-5.40); RED CELL DISTRIBUTION WIDTH 14.4 % (12.0-15.0); WHITE BLOOD COUNT 9.3 x10^3/uL (4.8-10.8)
[2022-12-11 05:53] LABS: CALCIUM 7.6 mg/dL (8.5-10.3); CREATININE 0.7 mg/dL (0.4-1.0); MAGNESIUM 1.8 mg/dL (1.7-2.8); POTASSIUM 3.7 mmol/L (3.5-5.0)
[2022-12-11] MEDS: DULoxetine 30 MG CAPSULE PO SCH (08:22)
[2022-12-11] MEDS: LOSARTAN 50 MG TABLET PO SCH (08:22)
[2022-12-11] MEDS: SOLIFENACIN SUCCINATE 5 MG TABLET PO SCH (08:22)
[2022-12-11] MEDS: POTASSIUM CHLORIDE 10 MEQ CAPSULE PO SCH (08:22)
[2022-12-11] MEDS: ENOXAPARIN 40 MG/0.4 ML SYRINGE SUBQ SCH (08:23)
[2022-12-11 08:24] LABS: % IRON SATURATION 16 % (20-50); IRON 37 ug/dL (28-170); TOTAL IRON BINDING CAPACITY 235 ug/dL (250-450); TRANSFERRIN 168 mg/dL (192-382)
[2022-12-11] MEDS ORDERED: cefTRIAXone 2 GM in SODIUM CHLORIDE 0.9% MINIBAG 100 ML IV SCH (09:00)
[2022-12-11 09:25] LABS: FOLATE < 1.00 ng/mL (5.90 - >24.8)
[2022-12-11] MEDS: polyethylene glycoL 3350 17 GM PACKET PO SCH (10:04)
[2022-12-11] MEDS: GENTAMICIN 0.3% OPHTH DROPS RIGHTEYE SCH ×2 (10:04→20:05)
[2022-12-11] MEDS: DICLOFENAC SODIUM 1% GEL 50 GM TUBE TOP PRN ×3 (10:05→19:53)
[2022-12-11] MEDS: FOLIC ACID 1 MG TABLET PO SCH (11:39)
[2022-12-11] MEDS: FERROUS GLUCONATE 324 MG TABLET PO SCH (11:39)
[2022-12-11] MEDS: cephALEXin 250 MG CAPSULE PO SCH ×3 (11:39→23:51)
--- NOTE | 2022-12-11 12:41 | PROVIDER PROGRESS NOTE ---
Assessment/Plan - Problem List (1) Bacteremia due to Klebsiella pneumoniae Assessment/Plan: Patient presented to ED unresponsive and in septic shock. All labs were reviewed. Her Lactic acidosis resolved and Leukocytosis improved. She was weaned off Levophed and transferred out of ICU. Awake, alert, oriented but has spoken about being "foggy" since extubated Blood culture turned positive for Klebsiella. The urine cx is also growimng the same Klebsiella She got 1 dose of Cefepime in ER then has been on iv Ceftriaxone since then, today is Day5 of iv antibx. Blood cultures were redrawn 2 days ago and they have negative growth Plan: We will transition IV ceftriaxone to oral Keflex QID, starting today. Start a probiotic. We will plan a total 10-day course of treatment for bacteremia. Anticipate discharge tomorrow if she has no worsening of her WBC or clinical status after starting p.o. antibiotics today. I updated the patient, and the sister from [place], who was at bedside today, about results and the plan. (2) Urinary tract infection Qualifiers: Urinary tract infection type: site unspecified Hematuria presence: without hematuria Qualified Code(s): N39.0 - Urinary tract infection, site not sp ecified This was felt to be the source of her bacteremia Plan: As in #1 (3) Conjunctivitis Yesterday, 12/10, she had scleral injection, and purulent debris near lacrimal du ct Plan: Continue Gentamicin eye drops that were started 12/10 (4) Type 2 MS Assessment/Plan: Labs have been reviewed. Troponins had risen significantly: 621>> 838>> 1067>> 1382>> 2161>> 1161>> 957; this is more than a twofold increase of troponin 621 going up to 2161. Dr. Lozada at [facility] was contacted earlier this admission and he felt that she likely had demand ischemia in the setting of septic shock, and felt patient did not require transfer, or anticoagulation, but agreed with getting an Echocardiogram and probable outpatient stress test. No Echo has been done yet since we only have the Echo service here Tuesdays through . She had an admission EKG which showed tachycardia but otherwise not very remarkable. A second EKG was done 12/09 and it did show new early R/S transition. Her Echo was done 12/09 and did not show regional LV wall motion abnormalities. She will need an outpatient stress test. Plan: Will plan an outpatient stress test. Will give Lasix IV to help with the fluid overload seen in the IVC on that Echo, which was likely caused be getting aggressive IV fluid resuscitation when she had septic shock (5) Weakness The patient reports that she has no appetite. When she was initially moved from bed into a chair for the first 2 days, she had dry heaves and was nauseated when she was in the upright position. She could not remember if she was lightheaded. Following that, was when each of her meal trays arrived so she was not very hungry. PT and OT have started to work with her and they stated that she is extremely debilitated and a SNF is recommended for rehab, which she agrees to. With the finding of her folate level of less than 1 I suspect she has tiredness, fatigue, lethargy, and muscle weakness typical of severe folate deficiency. Plan: Continue to check orthostatic vital sign checks at the start of working with PT. We will adjust meds if any of them are making her bradycardic or if she is getting vasovagal Continue daily Lasix for R-sided overload Start daily Folate suppl Will check TFTs, which has no been done yet Continue to work with PT and OT and discharge location will be to a SNF before returning home. Anticipate Dch tomorrow. I updated the patient and sister at bedside about this plan today. In addition we discussed looking past SNF to think about what caregiving help she needs after returning home, since she lives alone. I then asked SW to see pt and sister today to discuss that long range plan. (6) Obesity, Class II, BMI 35-39.9 (E66.9) This complicates her care including her activity and working with PT (7) Cor Pulmonale RV is very enlarged and RV function is below normal, as per Echo done yesterday 12/09. It also showed that her IVC is dilated and she has pulm hypertension with PA pressure 50 mmHg. With this finding I suspect she has obesity hypoventilation syndrome. She reports snoring but was never told she has apnea. Alternatively she could have had a pure RV MS (see #4). In addition, she has 4+ dependant edema, after receiving iv aggressive IV fluid resuscitation, to treat septic shock. Her med list was reviewed, she is not on any IV fluids any longer. IV Lasix has been started Plan: Continue daily Lasix IV to help with the anasarca. I suspect with the anasarca she may also have bowel edema, which has added to having no appetite. Will continue po Lasix after DCh. Follow K and Mg on daily labs, replace if low. (8) Anemia Labs were all reviewed. Patient has a Hgb 10>> 8, with a normal MCV and has received IV fluids with current anasarca therefore is hemodiluted I checked B12, folate and iron levels and she is found to have iron deficiency and severe folate deficiency. I discussed her diet with her today, sister was at bedside, and she eats almost no green vegetables. Plan: Begin daily iron supplement and folate suppl (9) Poor memory Patient was obtunded in shock at presentation. She had a head CT that was unremarkable. She claims she is "foggy" ever since leaving the ICU. The sister reports that she notices the patient is more forgetful than she was before this hospitalization. There is no history of alcohol abuse, there is no evidence of focal neurodeficit to consider stroke, she is able to make good decisions and participates in a discussion normally. With the finding of her folate level of <1, I suspect she has sx typical of severe folate deficiency Plan: Start oral folate suppl Will check TFTs, which has no been done yet (10) Hydronephrosis Assessment/Plan: Mild, likely secondary to nonobstructive stone Plan: Continue management as above in #1 & 2. (11) Acute kidney injury Assessment/Plan: Resolved Likely secondary to sepsis and hypoperfusion Labs were all reviewed and her creatinine is normal now Plan: Continue to avoid nephrotoxins (12) Right upper quadrant pain Assessment/Plan: Resolved (13) Severe sepsis with Septic shock R65.21 Qualifiers: Sepsis type: sepsis due to unspecified organism Sepsis acute organ dysfunction status: with acute organ dysfunction Severe sepsis acute organ dysfunction type: encephalopathy Severe sepsis shock status: with septic shock Qualified Code(s): A41.9 - Sepsis, unspecified organism; ; G93.40 - Encephalopathy, unspecified Assessment/Plan: Resolved On admission, patient was hypotensive, requiring Levophed, with leukocytosis, elevated lactic acid. Her sepsis was secondary to bacteremia from a UTI All labs were reviewed. Her WBC is now in a normal range - Current Meds Current Meds: Current Medications Generic Name Dose Route Start Last Admin Trade Name Freq PRN Reason Stop Dose Admin Acetaminophen 650 mg 12/06/22 20:25 12/09/22 10:37 Acetaminophen 325 Mg Tablet PO 650 mg Q4HR PRN Administration Pain 1 to 4, or Fever Carboxymethylcellulose 1 drops 12/10/22 10:18 12/10/22 16:12 Carboxymethylcellulose Ophth Drops EACHEYE 1 drops PRN PRN Administration Dry Eye Cephalexin 500 mg 12/11/22 12:00 12/11/22 11:39 Cephalexin 250 Mg Capsule PO 500 mg Q6HR EVELYNE Administration Diclofenac Sodium 2 gm 12/08/22 14:29 12/11/22 10:05 Diclofenac Sodium 1% Gel 50 Gm Tube TOP 2 gm QID PRN Administration Mild Pain (Level 1-3) Duloxetine HCl 30 mg 12/08/22 09:45 12/11/22 08:22 Duloxetine 30 Mg Capsule PO 30 mg DAILY EVELYNE Administration Enoxaparin Sodium 40 mg 12/07/22 09:00 12/11/22 08:23 Enoxaparin 40 Mg/0.4 Ml Syringe SUBQ 40 mg DAILY EVELYNE Administration Ferrous Gluconate 324 mg 12/11/22 12:00 12/11/22 11:39 Ferrous Gluconate 324 Mg Tablet PO 324 mg DAILYWM EVELYNE Administration Folic Acid 1 mg 12/11/22 12:00 12/11/22 11:39 Folic Acid 1 Mg Tablet PO 1 mg DAILY EVELYNE Administration Furosemide 20 mg 12/11/22 06:00 12/11/22 05:26 Furosemide 20 Mg/2 Ml Vial IVP 20 mg 0600 EVELYNE Administration Gentamicin Sulfate 1 drops 12/10/22 11:00 12/11/22 10:04 Gentamicin 0.3% Ophth Drops RIGHTEYE 1 drops BID EVELYNE Administration Losartan Potassium 50 mg 12/10/22 10:00 12/11/22 08:22 Losartan 50 Mg Tablet PO 50 mg DAILY EVELYNE Administration Ondansetron HCl 4 mg 12/06/22 20:25 12/08/22 23:39 Ondansetron 4 Mg/2 Ml Vial IVP 4 mg Q6HR PRN Administration Nausea / Vomiting Pantoprazole Sodium 40 mg 12/07/22 13:00 12/11/22 05:26 Pantoprazole 40 Mg Tablet PO 40 mg QDAC EVELYNE Administration Polyethylene Glycol 17 gm 12/08/22 09:00 12/11/22 10:04 Polyethylene Glycol 3350 17 Gm Packet PO Not Given DAILY EVELYNE Potassium Chloride 20 meq 12/10/22 12:00 12/11/22 08:22 Potassium Chloride 10 Meq Capsule PO 20 meq DAILYWM EVELYNE Administration Sodium Chloride 10 ml 12/07/22 01:00 12/11/22 10:04 Sodium Chloride Flush 0.9% 10 Ml Syringe IVP 10 ml 0100,0900,1700 EVELYNE Administration Sodium Chloride 10 ml 12/06/22 20:25 12/10/22 19:28 Sodium Chloride Flush 0.9% 10 Ml Syringe IVP 30 ml PRN PRN Administration NEEDED PER PROVIDER ORDERS Solifenacin 10 mg 12/08/22 09:45 12/11/22 08:22 Solifenacin Succinate 5 Mg Tablet PO 10 mg DAILY EVELYNE Administration - Lab Result Fish Bone Diagrams: 12/11/22 05:25 12/11/22 05:25 - Additional Planning My Orders: My Active Orders 12/10/22 12:00 Potassium Chloride [Micro-K] 20 meq PO DAILYWM 12/11/22 06:00 FUROSEMIDE INJ 20mg VIAL [LASIX INJ 20mg VIAL] 20 mg IVP 0600 12/11/22 12:00 Ferrous Gluconate [Fergon] 324 mg PO DAILYWM Folic Acid 1 mg PO DAILY cephALEXin [Keflex] 500 mg PO Q6HR 12/11/22 17:00 Saccharomyces Boulardii [Florastor] 250 mg PO BIDWM 12/12/22 05:00 BMP - BASIC METABOLIC PANEL [CHEM] DAILYLAB MAGNESIUM [CHEM] DAILYLAB Subjective - Subjective Patient Reports: Feeling Better (Still feeling "foggy". Appetite is no better but no more nausea or dry heaves. She has requested that PT start after breakfast and after lunch.) Objective Vital Signs: Vital Signs - 24 hr 12/10/22 12/10/22 12/10/22 15:25 21:00 21:42 Temperature 36.6 C 37.6 C Heart Rate [ 93 97 Brachial] Heart Rate [ Radial] Respiratory 19 18 Rate Blood Pressure [Left Brachial artery] Blood Pressure 149/88 H 151/83 H [Right Brachial artery] O2 Saturation 94 95 12/10/22 12/11/22 12/11/22 23:30 05:00 08:05 Temperature 37.1 C 37.1 C 36.7 C Heart Rate [ 102 H 93 Brachial] Heart Rate [ 83 Radial] Respiratory 18 16 18 Rate Blood Pressure 138/72 H 148/89 H [Left Brachial artery] Blood Pressure 151/87 H [Right Brachial artery] O2 Saturation 94 93 96 Oxygen O2 Source Room air Oxygen Flow Rate 3 I&O (Last 24 Hrs): Intake and Output Totals x24h 12/09/22 12/10/22 12/11/22 23:59 23:59 23:59 Intake Total 1270 530 572 Output Total 1300 1550 1600 Balance -30 -1020 -1028 General: Alert, Oriented x3 HEENT: Mucous membr. moist/pink Neck: Supple, Other (Cannot evaluate JVP due to morbid Sami obese neck) Neuro: Alert, Non Focal Cardiovascular: Regular rate Respiratory: No respiratory distress Abdomen: Soft, Other (Obese with a pannus) Extremities: Other (4+ dependant edema to buttocks) - Results Results: Laboratory Results WBC 9.3 x10^3/uL (4.8-10.8) 12/11/22 05:25 RBC 3.81 10^6/uL (4.20-5.40) L 12/11/22 05:25 Hgb 10.3 g/dL (12.0-16.0) L 12/11/22 05:25 Hct 32.1 % (37.0-47.0) L 12/11/22 05:25 MCV 84.3 fL (81.0-99.0) 12/11/22 05:25 MCH 27.0 pg (27.0-31.0) 12/11/22 05:25 MCHC 32.1 g/dL (32.0-36.0) 12/11/22 05:25 RDW 14.4 % (12.0-15.0) 12/11/22 05:25 Plt Count 125 10^3/uL (130-450) L 12/11/22 05:25 MPV 10.6 fL (7.9-10.8) 12/11/22 05:25 Neut # (Auto) Not Reportable 12/08/22 05:15 Lymph # (Auto) Not Reportable 12/08/22 05:15 Ray # (Auto) Not Reportable 12/08/22 05:15 Eos # (Auto) Not Reportable 12/08/22 05:15 Baso # (Auto) Not Reportable 12/08/22 05:15 Absolute Nucleated RBC Not Reportable 12/08/22 05:15 Total Counted 100 12/08/22 05:15 Band Neuts % (Manual) 6 % (0-10) 12/08/22 05:15 Abnorm Lymph % (Manual) 0 % 12/08/22 05:15 Metamyelocytes % 1 % (-0) H 12/08/22 05:15 Nucleated RBC % Not Reportable 12/08/22 05:15 Neutrophils # (Manual) 17.3 10^3/uL (1.5-6.6) H 12/08/22 05:15 Lymphocytes # (Manual) 1.3 10^3/uL (1.5-3.5) L 12/08/22 05:15 Monocytes # (Manual) 0.2 10^3/uL (0.0-1.0) 12/08/22 05:15 Eosinophils # (Manual) 0.2 10^3/uL (0-0.7) 12/08/22 05:15 Basophils # (Manual) 0.0 10^3/uL (0-0.1) 12/08/22 05:15 Differential Comment MANUAL DIFFERENTIAL 12/08/22 05:15 WBC Morphology NORMAL APPEARANCE (NORMAL) 12/08/22 05:15 Platelet Estimate DECREASED (<130,000) (NORMAL) 12/08/22 05:15 Platelet Morphology NORMAL APPEARANCE (NORMAL) 12/08/22 05:15 RBC Morph Micro Appear NORMAL APPEARANCE (NORMAL) 12/08/22 05:15 VBG pH 7.361 (7.31-7.41) 12/08/22 13:30 Ionized Calcium 1.13 mmol/L (1.15-1.33) L 12/08/22 13:30 Sodium 140 mmol/L (135-145) 12/11/22 05:25 Potassium 3.7 mmol/L (3.5-5.0) 12/11/22 05:25 Chloride 110 mmol/L (101-111) 12/11/22 05:25 Carbon Dioxide 26 mmol/L (21-32) 12/11/22 05:25 Anion Gap 4.0 (6-13) L 12/11/22 05:25 BUN 8 mg/dL (6-20) 12/11/22 05:25 Creatinine 0.7 mg/dL (0.4-1.0) 12/11/22 05:25 Estimated GFR (MDRD) 82 (>89) L 12/11/22 05:25 Glucose 92 mg/dL (70-100) 12/11/22 05:25 Lactic Acid 2.0 mmol/L (0.5-2.2) 12/07/22 20:44 Calcium 7.6 mg/dL (8.5-10.3) L 12/11/22 05:25 Phosphorus 2.9 mg/dL (2.5-4.6) 12/08/22 05:15 Magnesium 1.8 mg/dL (1.7-2.8) 12/11/22 05:25 Iron 37 ug/dL (28-170) 12/11/22 05:25 TIBC 235 ug/dL (250-450) L 12/11/22 05:25 % Saturation 16 % (20-50) L 12/11/22 05:25 Transferrin 168 mg/dL (192-382) L 12/11/22 05:25 Total Bilirubin 0.4 mg/dL (0.2-1.0) 12/08/22 05:15 AST 23 IU/L (10-42) 12/08/22 05:15 ALT 18 IU/L (10-60) 12/08/22 05:15 Alkaline Phosphatase 49 IU/L (42-121) 12/08/22 05:15 Troponin I High Sens 665.7 ng/L (2.3-14.8) H* 12/08/22 20:22 Total Protein 4.6 g/dL (6.7-8.2) L 12/08/22 05:15 Albumin 2.0 g/dL (3.2-5.5) L 12/08/22 05:15 Globulin 2.6 g/dL (2.1-4.2) 12/08/22 05:15 Albumin/Globulin Ratio 0.8 (1.0-2.2) L 12/08/22 05:15 Vitamin B12 610 pg/mL (180-914) 12/11/22 05:25 Folate < 1.00 ng/mL (5.90 - >24.8) L 12/11/22 05:25 Urine Color YELLOW 12/06/22 18:26 Urine Clarity CLOUDY (CLEAR) 12/06/22 18:26 Urine pH 6.0 PH (5.0-7.5) 12/06/22 18:26 Ur Specific [place] 1.020 (1.002-1.030) 12/06/22 18:26 Urine Protein NEGATIVE mg/dL (NEGATIVE) 12/06/22 18:26 Urine Glucose (UA) NEGATIVE mg/dL (NEGATIVE) 12/06/22 18: Urine Ketones NEGATIVE mg/dL (NEGATIVE) 12/06/22 18:26 Urine Occult Blood MODERATE (NEGATIVE) H 12/06/22 18:26 Urine Nitrite POSITIVE (NEGATIVE) H 12/06/22 18: Urine Bilirubin NEGATIVE (NEGATIVE) 12/06/22 18:26 Urine Urobilinogen 1 (NORMAL) E.U./dL (NORMAL) 12/06/22 18:26 Ur Leukocyte Esterase TRACE (NEGATIVE) H 12/06/22 18:26 Urine RBC 6-10 /HPF (0-5) H 12/06/22 18:26 Urine WBC 11-25 /HPF (0-5) H 12/06/22 18:26 Ur Squamous Epith Cells NONE SEEN (<= Few) 12/06/22 18:26 Urine Bacteria Many /HPF (None Seen) H 12/06/22 18:26 Urine Culture Comments INDICATED 12/06/22 18:26 Nasal Adenovirus (PCR) NOT DETECTED 12/06/22 14:55 Nasal B. parapertussis DNA (PCR) NOT DETECTED 12/06/22 14:55 Nasal Coronavir 229E PCR NOT DETECTED 12/06/22 14:55 Nasal Coronavir HKU1 PCR NOT DETECTED 12/06/22 14:55 Nasal Coronavir NL63 PCR NOT DETECTED 12/06/22 14:55 Nasal Coronavir OC43 PCR NOT DETECTED 12/06/22 14:55 Nasal Enterovir/Rhinovir PCR NOT DETECTED 12/06/22 14:55 Nasal Influenza B PCR NOT DETECTED 12/06/22 14:55 Nasal Influenza A PCR NOT DETECTED 12/06/22 14:55 Nasal Parainfluen 1 PCR NOT DETECTED 12/06/22 14:55 Nasal Parainfluen 2 PCR NOT DETECTED 12/06/22 14:55 Nasal Parainfluen 3 PCR NOT DETECTED 12/06/22 14:55 Nasal Parainfluen 4 PCR NOT DETECTED 12/06/22 14:55 Nasal RSV (PCR) NOT DETECTED 12/06/22 14:55 Nasal Screen MRSA (PCR) NEGATIVE (NEGATIVE) 12/06/22 21:59 Nasal B.pertussis DNA PCR NOT DETECTED 12/06/22 14:55 Nasal C.pneumoniae (PCR) NOT DETECTED 12/06/22 14:55 Navjot Human Metapneumo PCR NOT DETECTED 12/06/22 14:55 Nasal M.pneumoniae (PCR) NOT DETECTED 12/06/22 14:55 Nasal SARS-CoV-2 (PCR) NOT DETECTED 12/06/22 14:55 Sepsis Event Note (H) - Evaluation Current Stage of Sepsis: Resolved Possible source of Sepsis: positive: Genitourinary - Sepsis Criteria Sepsis Criteria: Recorded Heart Rate greater than 90 bpm, WBC count greater than 10% bands, WBC count greater than 12,000 or less than 4000, TRAFFIC RATE ANALYST: altered consciousness (unrelated to primary neuro pathology), SBP drop more than 40mHg, SBP less than 90 mmHg, Metabolic: lactate > 2 mmol/L
--- NOTE | 2022-12-11 16:12 | Discharge Plan ---
"Discharge Plan for SNF / REVA - Discharge Plan And Transition Orders Problem Reviewed?: Yes Disposition: 03 [facility] DC/Xfer Condition: Fair Allergies and Adverse Reactions: Allergies Allergy/AdvReac Type Severity Reaction Status Date / Time Penicillins Allergy Unknown Verified 12/07/22 02:48 Sulfa (Sulfonamide Allergy Rash Verified 12/07/22 02:48 Antibiotics) Health Concerns: The patient is a 72 y/o WF with obesity (BMI 38), who was admitted obtunded and in septic shock. She required IV Levophed and was in the ICU. Her blood cultures grew out Klebsiella and urine cultures also have grown Klebsiella. Imaging done in the ER showed she had mild hydronephrosis. The patient developed anasarca, from the aggressive IV fluid resuscitation. Her Echo also revealed she has Cor pulmonale. She has become severely debilitated, on top of being sedentary, and having prior walking difficulty due to knee pain, and was already needing a walker. In addition, we have found her to have severe folate deficiency (serum level of folate was undetectable), which may be adding to her marked weakness and her fatigue. She needs PT and OT rehab before returning home. Also, on the day before discharge, she developed tenderness of her medial R popliteal area and work-up showed that she has superficial thrombophlebitis. Therefore, she will be on prophylactic Lovenox twice daily (given her Intermediate risk) for 45 days. Plan of Treatment: Meds as per medication list. Plan is for daily (or BID) PT and OT rehab at [facility]. Management of the R leg superficial thrombophlebitis with R leg elevation when she is OOB, applying cool or warm compresses, and Motrin or Tylenol prn pain. Care Goals: Improvement in symptoms, strengthening, and stabilization are the goals. She hopes to be able to return home after rehab. The patient and her sister are working on different caregiving options if needed in the future. Assessment: The patient and sister understand and are agreeable with the plan. - SNF / DETENTION Transition Orders Admit to (Facility): [facility] Under the care of (Name): Dr Christopher Antunez Discharge Diagnosis: (1) Severe sepsis with Septic shock Resolved (2) Bacteremia due to Klebsiella pneumoniae iv antibx were transitioned to po and she needs several more days of Keflex treatment (3) Urinary tract infection The culture also grew Klebsiella (4) Hydronephrosis Mild, from a non-obstructing stone (5) Type 2 MA SHE NEEDS OUTPT STRESS TESTING when able to participate (6) Cor Pulmonale New Dx, as per Echo (7) Anasarca From (+) fluid balance and Cor pulmonale and she needs continued diuretics (8) Obesity, Class II, BMI 35-39.9 (9) Anemia Hemodilutional and has Iron deficiency and severe Folate deficiency (10) Conjunctivitis On Gentamicin eyedrops, started 12/10/22, planned for 1 week (11) Acute kidney injury Resolved w/ hydration (12) Right upper quadrant pain Resolved (13) Weakness From deconditioning, obesity, prior sedentary lifestyle, and (newly Dx) severe Folate deficiency (14) Poor memory Possibly from severe Folate deficiency and sequelae of critical illness (15) Folate deficiency Due to poor diet, is now on a daily supplement (16) Superficial thrombophlebitis Given her intermediate risk, she needs Lovenox 40 mg SQ BID for 45 days, started 12/12/22. Medicare Certification Statement: I certify that Post Hospital residential care is medically necessary on a continuing basis for any of the conditions for which she/he is receiving care during hospitalization. Notify PCP of admission and forward orders to primary provider for signature. Weight on admission and: Daily Call PCP immediately if weight increases by: 5 kg Other Notification Orders: Call PCP immediately if patient develops dyspnea, chest pain/tightness or edema. House Bowel Program: Yes Additional Bowel Program Orders: If no BM after 2 days, nurse may give M.O.M. 30ml PO PRN and/or ducolax Supp 1 [place] and/or [place] 250mg P.O., and/or senna 1-2 tabs PO. On day 3 nurse may give repeat above order until residents constipation is resolved. Annual Influenza Vaccine (between Apr 24 and November 21): Yes Two-step PPD per [facility] [phone] or approved exception documents: Yes Treatments & Other Orders: Daily or BID PT and OT. Elevate the right leg and offer warm or cool compresses to medial right popliteal area TID prn. Lab Tests or X-ray Orders: BMP and Mg level every Mon and Thurs Medication Orders: PLEASE REFER TO THE DISCHARGE MEDICATION LIST. Insulin Orders?: No - Medications New Prescriptions: Ferrous Gluconate [Fergon] 324 mg PO DAILY #30 tab Saccharomyces Boulardii [Florastor] 250 mg PO BIDWM #10 cap Folic Acid 1 mg PO DAILY #30 tab Gentamicin 0.3% Ophth Drops [Garamycin] 1 drops RIGHTEYE BID #1 each Potassium Chloride [K-Dur] 20 meq PO DAILY #30 tablet cephALEXin [Keflex] 500 mg PO Q6H #24 cap Furosemide [Lasix] 40 mg PO DAILY #30 tablet Enoxaparin [Lovenox] 40 mg SQ BID #90 ea Ibuprofen [Motrin] 600 mg PO Q6H PRN #30 tab PRN Reason: Moderate Pain (Level 4-6) Acetaminophen [Tylenol] 650 mg PO Q6H PRN #30 tab PRN Reason: Mild Pain Or Fever>38c(100.4f) Diclofenac Sodium 1% Gel [Voltaren Gel] 2 gm TOP QID PRN #1 each PRN Reason: Mild Pain (Level 1-3) - Diet Type: No added salt Texture: Regular Liquids: Thin May have monthly special meal: Yes - Therapies | Activity Therapy: Evaluation | Treat if indicated: PT, OT Rehabilitation Potential: Maximize functional status Activity: Activity as Tolerated Weight Bearing: Full Weight Assistance Devices: Walker Follow Up: See PCP after DCh from [facility]."
[2022-12-11] MEDS: SACCHAROMYCES BOULARDII 250 MG CAPSULE PO SCH (16:48)
--- NOTE | 2022-12-11 21:32 | Ultrasound Report ---
PROCEDURE: Duplex Ext Veins Right INDICATIONS: R leg swelling, tenderness. Eval for a DVT TECHNIQUE: Real-time imaging, as well as color and pulse Doppler interrogation, were performed of the lower extr emity deep veins from the inguinal ligament to the popliteal fossa. COMPARISON: None. FINDINGS: The deep veins are normally compressible, and free of intraluminal thrombus. Color and pu lse Doppler demonstrate normal phasic intraluminal flow. There is normal augmentation response to di stal compression maneuver. At the area of pain, in the proximal calf, varicose veins are noted with thrombosis. IMPRESSION: Limited examination due to large body habitus. Negative for DVT. Varicose veins, with miles perficial thrombophlebitis at the location of pain. Reviewed by: Carlos Pool MD on 12/11/2022 9:31 PM PDT Approved by: Carlos Pool MD on 12/11/2022 9:31 PM PDT Station ID: [id number]
[2022-12-11] MEDS: SODIUM CHLORIDE FLUSH 0.9% 10 ML SYRINGE IVP PRN (23:51)
[2022-12-12] MEDS: FUROSEMIDE 20 MG/2 ML VIAL IVP SCH (05:46)
[2022-12-12] MEDS: DICLOFENAC SODIUM 1% GEL 50 GM TUBE TOP PRN ×3 (05:55→08:03)
[2022-12-12 06:00] LABS: CALCIUM 7.7 mg/dL (8.5-10.3); CREATININE 0.7 mg/dL (0.4-1.0); MAGNESIUM 1.4 mg/dL (1.7-2.8); POTASSIUM 3.6 mmol/L (3.5-5.0)
[2022-12-12] MEDS: PANTOPRAZOLE 40 MG TABLET PO SCH (06:05)
[2022-12-12] MEDS: cephALEXin 250 MG CAPSULE PO SCH (06:05)
[2022-12-12 06:17] LABS: THYROID STIMULATING HORMONE 3.27 uIU/mL (0.34-5.60)
[2022-12-12 06:19] LABS: FREE T4 (FREE THYROXINE) 1.26 ng/dL (0.58-1.64)
--- NOTE | 2022-12-12 07:56 | DISCHARGE SUMMARY ---
Discharge Summary Admit Date: 12/06/22 Discharge Date: 12/12/22 Discharging Provider: Dr Crystal Calderon Primary Care Provider: Dr Christopher Antunez Code Status: Attempt Resuscitation Condition at Discharge: Fair Discharge Disposition: 03 SNF DC/Xfer - HPI History of Present Illness: From Telemedicine MD's H&P: 72 y old obese female BIBA due to AMS. Pt is obtunded, so most of history from ER physician and ER record. On presentation, patient was febrile at 39.4C, tachycardic at 138 in sinus tach, hypotensive w/ BP 94/57 and unconsious. Labs showed WBC nl, bandemia present, Plans Examiner 1.7, Lactic acid 4.6, troponin 621, COVID neg, UA positive for UTI CXR showed no acute findings. CT head neg. In ER, pt was given IVF at 30 ml/kg, bld cx drawn and IV Abx started. Patient is being admitted to ICU due to AMS, Septic shock, UTI, TOMMY and poss MN. - HOSPITAL COURSE Hospital Course: (1) Severe sepsis with Septic shock Patient was hypotensive, with leukocytosis, elevated troponins, elevated lactic acid. She was admitted to the ICU, put on iv fluids, iv antibiotics, requiring Levophed. She slowly improved, was transferred out of ICU. (2) Bacteremia due to Klebsiella pneumoniae Blood culture grew Klebsiella, and her empiric iv antibx were transitioned to po and she needed several more days of Keflex treatment (3) Urinary tract infection The culture also grew Klebsiella and was treated as in #2 (4) Hydronephrosis Mild, from a non-obstructing stone, and probably contributed to her serious infection. (5) Type 2 MN Her troponins were abnormal (621 at admission>> 838>> 1067>> 1328>> 2161>> 1161). Hospitalist spoke with Dr. Blancas, [employer] on-call at [facility], who felt that we could manage conservatively and treat sepsis as he thought this was likely demand ischemia and he recommended medical management, checking an Echocardiogram when available, and referral for outpatient stress test. He recommended reconsulting if patient clinically deteriorated. He did not recommend anticoagulation at this time due to the risk of bleeding in the setting of sepsis. An Echo was done that showed no large or obvious resting LV wall motion abnormalities. SHE NEEDS OUTPT STRESS TESTING when able to participate. (6) Cor Pulmonale New diagnosis for her, as per Echo. Likely from her obesity, and hypoventilation, but possible CAD may also contribute. (7) Anasarca From (+) fluid balance and from Cor pulmonale and she needed continued diuretics, was discharged on Lasix 40 mg daily plus KCl. (8) Hypomagnesemia Caused by loop diuretics. She received Mg replacement. (9) Obesity, Class II, BMI 35-39.9 Her BMI is 37. This makes her care difficult. She was already sedentary before admission. (10) Iron deficiency Anemia Hgb at admission was 13.7. Her Iron panel showed low Iron stores and she was prescribed oral Iron. Hgb was 10.3 at discharge. (11) Conjunctivitis On Gentamicin eyedrops, started 12/10/22, planned for 1 week (12) Acute kidney injury Creat was 1.7>> 1.8 at admission. The elevation resolved w/ hydration. Creat was 0.7 at discharge. (13) Right upper quadrant pain Resolved. Abd imaging showed no source. (14) Weakness From deconditioning, obesity, prior sedentary lifestyle, and (newly Dx) severe Folate deficiency. She was discharged to [place] for rehab. (15) Poor memory Possibly from severe Folate deficiency and sequelae of critical illness (16) Folate deficiency She lived alone and admitted to a poor diet (which was reviewed and discussed), and she is now on a daily Folate supplement. (17) Superficial thrombophlebitis She developed a painful red are, medial to the R popliteal area, on the day before discharge, despite being on weight-adjusted Lovenox daily while here. Given her Intermediate Risk, she was put on Lovenox 40 mg SQ BID for 45 days, starting on 12/12/22. - ALLERGIES Allergies/Adverse Reactions: Allergies Allergy/AdvReac Type Severity Reaction Status Date / Time Penicillins Allergy Unknown Verified 12/07/22 02:48 Sulfa (Sulfonamide Allergy Rash Verified 12/07/22 02:48 Antibiotics) - MEDICATIONS Home Medications: Ambulatory Orders Medication Instructions Recorded Confirmed DULoxetine [Cymbalta] 30 mg PO DAILY 12/07/22 12/07/22 Losartan [Cozaar] 50 mg PO DAILY 12/07/22 12/07/22 Omeprazole 40 mg PO QDAC 12/07/22 12/07/22 Oxybutynin Chloride [Ditropan Xl] 10 mg PO DAILY 12/07/22 12/07/22 Diclofenac Sodium 1% Gel [Voltaren 2 gm TOP QID PRN #1 each 12/11/22 Gel] Ferrous Gluconate [Fergon] 324 mg PO DAILY #30 tab 12/11/22 Folic Acid 1 mg PO DAILY #30 tab 12/11/22 Furosemide [Lasix] 40 mg PO DAILY #30 tablet 12/11/22 Gentamicin 0.3% Ophth Drops 1 drops RIGHTEYE BID #1 each 12/11/22 [Garamycin] Potassium Chloride [K-Dur] 20 meq PO DAILY #30 tablet 12/11/22 Saccharomyces Boulardii [Florastor] 250 mg PO BIDWM #10 cap 12/11/22 cephALEXin [Keflex] 500 mg PO Q6H #24 cap 12/11/22 Acetaminophen [Tylenol] 650 mg PO Q6H PRN #30 tab 12/12/22 Enoxaparin [Lovenox] 40 mg SQ BID #90 ea 12/12/22 Ibuprofen [Motrin] 600 mg PO Q6H PRN #30 tab 12/12/22 - PHYSICAL EXAM AT DISCHARGE General Appearance: positive: No acute distress, Alert Eyes Bilateral: positive: Normal inspection, EOMI ENT: positive: ENT inspection nml, Other (Mild redness of R conjunctiva) Neck: positive: Nml inspection, Other (Cannot eval JVP due to obese neck) Respiratory: positive: No respiratory distress, Breath sounds nml Cardiovascular: positive: Regular rate & rhythm, No murmur Abdomen: positive: Non-tender, Other (Obese with a pannus) Skin: positive: Warm, Dry, Other (Redness and warmth, R medial popliteal area, size about 7x7 cm) Extremities: positive: Other (4+ edema of legs up to to buttocks ) Neurologic/Psychiatric: positive: Oriented x3, Motor nml - LABS Result Diagrams: 12/11/22 05:25 12/12/22 05:40 - DIAGNOSTIC IMAGING Diagnostic Imaging Results: Final report reviewed - SEPSIS Current Stage of Sepsis: Resolved Possible source of Sepsis: Genitourinary Sepsis Criteria: Recorded Temperature greater than 38.3C or Less than 36C, Recorded Heart Rate greater than 90 bpm, WBC count greater than 10% bands, CIRCULAR SHEAR OPERATOR: altered consciousness (unrelated to primary neuro pathology), SBP drop more than 40mHg, SBP less than 90 mmHg, Metabolic: lactate > 2 mmol/L - FOLLOW UP Follow Up: This will be determined after her stay at the SNF - TIME SPENT Time Spent in Discharge (Minutes): 60
[2022-12-12] MEDS: SODIUM CHLORIDE FLUSH 0.9% 10 ML SYRINGE IVP SCH (08:03)
[2022-12-12] MEDS: DULoxetine 30 MG CAPSULE PO SCH (08:04)
[2022-12-12] MEDS: FERROUS GLUCONATE 324 MG TABLET PO SCH (08:04)
[2022-12-12] MEDS: SOLIFENACIN SUCCINATE 5 MG TABLET PO SCH (08:04)
[2022-12-12] MEDS: FOLIC ACID 1 MG TABLET PO SCH (08:04)
[2022-12-12] MEDS: POTASSIUM CHLORIDE 10 MEQ CAPSULE PO SCH (08:04)
[2022-12-12] MEDS: ENOXAPARIN 40 MG/0.4 ML SYRINGE SUBQ SCH (08:05)
[2022-12-12] MEDS: polyethylene glycoL 3350 17 GM PACKET PO SCH (08:05)
[2022-12-12] MEDS: SACCHAROMYCES BOULARDII 250 MG CAPSULE PO SCH (08:05)
[2022-12-12] MEDS: GENTAMICIN 0.3% OPHTH DROPS RIGHTEYE SCH (08:05)
[2022-12-12] MEDS: LOSARTAN 50 MG TABLET PO SCH (08:05)
[2022-12-12 08:14] VITALS: BP 140/78
[2022-12-12] MEDS ORDERED: MAGNESIUM OXIDE 400 MG TABLET PO ONE (08:44)
== END 2022-12-12 09:35 | DRG 871 ==
LOC: EDUNIT# → ED 16:38 → ICU 20:25 → MS2 12-08 15:18 → ICU 12-08 15:19 → MS2 12-09 11:19
PROVIDERS: ADMIT Internal Medicine; ATTEND Internal Medicine
DX: A41.9 Sepsis, unspecified organism (principal); N13.6 Pyonephrosis; A41.59 Other Gram-negative sepsis; G93.41 Metabolic encephalopathy; Z20.822 Contact with and (suspected) exposure to COVID-19; R00.0 Tachycardia, unspecified; R65.21 Severe sepsis with septic shock; I21.A1 Myocardial infarction type 2; N39.0 Urinary tract infection, site not specified; N13.30 Unspecified hydronephrosis; N20.1 Calculus of ureter; N17.9 Acute kidney failure, unspecified; I80.221 Phlebitis and thrombophlebitis of right popliteal vein; I27.81 Cor pulmonale (chronic); R60.1 Generalized edema; E83.42 Hypomagnesemia; E66.9 Obesity, unspecified; Z68.37 Body mass index [BMI] 37.0-37.9, adult; D50.9 Iron deficiency anemia, unspecified; H10.9 Unspecified conjunctivitis; R10.11 Right upper quadrant pain; E53.8 Deficiency of other specified B group vitamins; R41.3 Other amnesia; N20.0 Calculus of kidney; R26.2 Difficulty in walking, not elsewhere classified
CPT/HCPCS: 36415; 36556; 51701; 70450; 71045; 74176; 80048; 80053; 81001; 82330; 82607; 82746; 83540; 83605; 83735; 84100; 84132; 84439; 84443; 84466; 84484; 85025; 85027; 87040; 87077; 87086; 87150; 87181; 87633; 93005; 93306; 93971; 96365; 96367; 96368; 97163; 97166; 97530; 99291; A9270; J0131; J1650; J3370; J7040; J7120

== ENCOUNTER 2023-08-14 09:49 | Outpatient (CLI) | payer MEDICARE, MEDICAID ==
--- NOTE | 2023-08-14 11:09 | DEXA Report ---
PROCEDURE: Dexa Spine and/or Hip INDICATIONS: POST MENOPAUSAL TECHNIQUE: Dual energy x-ray absorptiometry (DXA) was performed on a Aplica System. Regions measur ed are the AP Spine, femoral neck, and if needed forearm. COMPARISON: None. FINDINGS: Lumbar Spine: Bone Mineral Density 0.961 g/cm/cm, T score -1.9. Osteopenia. Left Femoral Neck: Bone Mineral Density 0.672 g/cm/cm, T score -2.6. Osteoporosis. Left Hip: Bone Mineral Density 0.588 g/cm/cm, T score -3.3. Osteoporosis. (T score greater or equal to -1.0: NORMAL) (T score from -1.1 to -2.4: OSTEOPENIA) (T score less than or equal to -2.5 to: OSTEOPOROSIS) Impression: By WHO criteria, this patient has osteoporosis. Patients with diagnosis of osteoporosis or osteopenia should have regular bone mineral density assess ment. For those eligible for Medicare, routine testing is allowed once every 2 years. Testing frequ ency can be increased for patients who have rapidly progressing disease or for those who are receivin g medical therapy to restore bone mass. Reviewed by: Oni Shaw MD on 08/14/2023 11:08 AM PST Approved by: Oni Shaw MD on 08/14/2023 11:08 AM PST Station ID: [id number]
== END 2023-08-14 09:50 | disposition home or self-care (01) ==
LOC: DI 09:49
PROVIDERS: ATTEND Physician Assistant
DX: Z13.820 Encounter for screening for osteoporosis (principal); Z78.0 Asymptomatic menopausal state; M81.0 Age-related osteoporosis without current pathological fracture

== ENCOUNTER 2023-10-12 08:00 | Outpatient (CLI) | payer MEDICARE, MEDICAID ==
[2023-10-12 16:28] LABS: BILIRUBIN,URINE NEGATIVE (NEGATIVE); GLUCOSE, URINE (UA) NEGATIVE (NEGATIVE); KETONES,URINE (UA) NEGATIVE (NEGATIVE); LEUKOCYTE ESTERASE, URINE TRACE (NEGATIVE); NITRITE,URINE POSITIVE (NEGATIVE); OCCULT BLOOD,URINE NEGATIVE (NEGATIVE); PH,URINE 5.5 PH (5.0-7.5); PROTEIN,URINE NEGATIVE (NEGATIVE); UROBILINOGEN,URINE 0.2 (NORMAL) E.U./dL (NORMAL)
[2023-10-12 16:33] LABS: CLARITY,URINE CLOUDY (CLEAR)
[2023-10-12 16:48] LABS: RBC,URINE 0-5 /HPF (0-5); WBC,URINE 0-3 /HPF (0-5)
[2023-10-12 16:49] LABS: AMORPHOUS SEDIMENT,UR Marked /LPF; BACTERIA,URINE Few /HPF (None Seen); SQUAMOUS EPITHELIAL CELL,UR NONE SEEN (<= Few)
== END 2023-10-12 23:59 | disposition home or self-care (01) ==
LOC: LAB.WC 08:00
PROVIDERS: ATTEND Obstetrics & Gynecology
DX: N30.00 Acute cystitis without hematuria (principal)
CPT/HCPCS: 81001; 87077; 87086; 87181

== ENCOUNTER 2023-11-11 08:00 | Outpatient (CLI) | payer MEDICARE, MEDICAID | END 2023-11-11 23:59 | disposition home or self-care (01) | LOC: LAB.WC 08:00 | PROVIDERS: ATTEND Obstetrics & Gynecology | DX: N30.00 Acute cystitis without hematuria (principal); R35.0 Frequency of micturition | CPT/HCPCS: 87077; 87086; 87181 ==

== ENCOUNTER 2023-12-01 08:00 | Outpatient (CLI) | payer MEDICARE, MEDICAID | END 2023-12-01 23:58 | disposition home or self-care (01) | LOC: LAB.WC 08:00 | PROVIDERS: ATTEND Obstetrics & Gynecology | DX: N30.00 Acute cystitis without hematuria (principal) | CPT/HCPCS: 87077; 87086; 87181 ==

== ENCOUNTER 2024-01-05 10:22 | Outpatient (CLI) | payer MEDICARE, MEDICAID ==
--- NOTE | 2024-01-06 09:28 | Mammography Report ---
BILATERAL DIGITAL SCREENING MAMMOGRAM 3D/2D: 01/05/2024 CLINICAL: Routine screening. Baseline exam. No prior exams were available for comparison. Both breasts are almost entirely fatty (category a/<25% glandular tissue). No significant masses, calcifications, or other findings are seen in either breast. IMPRESSION: NEGATIVE There is no mammographic evidence of malignancy. A 1 year screening mammogram is recommended. Based on the Tyrer Cuzick model (a risk assessment model) the patient's lifetime risk is 1.6% and her 10 year risk is 1.4%. According to the ACR, ACS, and NCCN guidelines, an annual breast MRI exam nataliia g with mammogram is recommended if the patient's lifetime risk is 20% or greater. This exam was interpreted at Station ID: [id number]. NOTE: For mammograms, a report in lay terms will be sent to the patient. Approximately 15% of breast malignancies will not be visualized mammographically. In the management of a palpable breast mass, a negative mammogram must not discourage biopsy of a clinically suspicious lesion. Electronically Signed By: Rufino vega/yari:01/05/2024 17:13:08 ACR BI-RADS Category 1: Negative 3341F PARENCHYMAL PATTERN: (F) - The breast(s) demonstrate(s) diffuse fatty replacement. BI-RADS CATEGORY: (1) - 1 RECOMMENDATION: (ANNUAL) - Recommend routine annual screening mammography. [id number] 1 year screening LATERALITY: (B)
== END 2024-01-05 10:23 | disposition home or self-care (01) ==
LOC: DI 10:22
DX: Z12.31 Encounter for screening mammogram for malignant neoplasm of breast (principal)

== ENCOUNTER 2024-01-15 16:04 | Outpatient (CLI) | payer MEDICARE, MEDICAID ==
--- NOTE | 2024-01-18 09:32 | CT Report ---
PROCEDURE: Abdomen/Pelvis WO INDICATIONS: HIST OF KIDNEY STONES TECHNIQUE: A CT scan of the abdomen and pelvis was performed without the use of intravenous contrast. Images we re recorded and evaluated at appropriate window settings. Reformats: coronal and sagittal. For radiat ion dose reduction, the following was used: automated exposure control, adjustment of mA and/or kV ac cording to patient size. COMPARISON: CT abdomen pelvis 12/06/2022 FINDINGS: Image quality: Diagnostic. Lower chest: Unremarkable. Liver: No contour-deforming mass. Gallbladder and biliary tree: Removed. Spleen: No splenomegaly. Pancreas: No pancreatic ductal dilation. Adrenals: No adrenal nodule. Kidneys and ureters: No hydronephrosis. There are 2 calcifications within the left kidney ranging in size of 1 to 2 mm, one new compared to prior exam.. The right kidney demonstrates 5 calcifications ra nging in size from 1 to 3 mm, relatively stable. Both kidneys demonstrate atrophy. Previous left uret eral calculus is no longer visualized. No renal cystic lesion which requires follow up. No solid mass . Stomach, bowel and peritoneum: No bowel distension. No pathologic free fluid. Lymph nodes: No central or retroperitoneal adenopathy. Vessels: No infrarenal aortic aneurysm. PELVIS Reproductive organs: Unremarkable. Bladder: No wall thickness, accounting for underdistention. Pelvic lymph nodes: No pelvic adenopathy by size criteria. Bones: Prominent arthritic changes within the hips bilaterally, right greater than left. Other: No significant ventral or inguinal hernia. IMPRESSION: No hydronephrosis or obstructing renal stone. Reviewed by: Alexandrea Suggs MD on 01/18/2024 9:31 AM PDT Approved by: Alexandrea Suggs MD on 01/18/2024 9:31 AM PDT Station ID: [id number]
== END 2024-01-15 16:05 | disposition home or self-care (01) ==
LOC: DI 16:04
PROVIDERS: ATTEND Urology
DX: N28.89 Other specified disorders of kidney and ureter (principal)

== ENCOUNTER 2024-03-22 09:18 | Outpatient (CLI) | payer MEDICARE, MEDICAID | END 2024-03-22 23:59 | disposition critical access hospital (66) | LOC: EMS 09:18 | DX: R42 Dizziness and giddiness (principal); R61 Generalized hyperhidrosis; R39.89 Other symptoms and signs involving the genitourinary system | CPT/HCPCS: A0425; A0429 ==

== ENCOUNTER 2024-03-22 09:42 | Emergency (ER) | payer MEDICARE, MEDICAID ==
--- NOTE | 2024-03-22 10:02 | ED Physician Documentation ---
PD HPI SYNCOPE - Stated complaint Stated Complaint: NEAR SYNCOPE/DIZZY - History obtained from History obtained from: Patient, EMS (Medic noted drop in BP when checked from lying to sitting.) - History of Present Illness Witnessed: Unwitnessed Timing - onset: How many weeks ago (has had intermittent feeling of lightheaded and near syncope when standing up for past couple of weeks. Occurred today and was more symptomatic. No vertigo. No chest pain nor headache. No falls/full syncope.) Duration: Seconds, Minutes Preceding symptoms: Light headed, Generalized weakness. No: Headache Associated symptoms: No: Headache, Dyspnea, Abdominal pain Contributing factors: Just stood up. No: Recent med change, Decreased PO intake Injury occurred: No: Fell, Head injury Similar symptoms before: Diagnosis (had similar symptoms in past with UTi and sepsis from it.) Review of Systems Constitutional: denies: Fever, Chills PD PAST MEDICAL HISTORY - Past Medical History Cardiovascular: Hypertension Respiratory: None Neuro: None Endocrine/Autoimmune: None GI: GERD : Other Psych: Depression Musculoskeletal: None Derm: None - Present Medications Home Medications: Ambulatory Orders Medication Instructions Recorded Confirmed DULoxetine [Cymbalta] 30 mg PO DAILY 12/07/22 12/07/22 Losartan [Cozaar] 50 mg PO DAILY 12/07/22 12/07/22 Omeprazole 40 mg PO QDAC 12/07/22 12/07/22 oxyBUTYnin chloride [Ditropan Xl] 10 mg PO DAILY 12/07/22 12/07/22 Diclofenac Sodium 1% Gel [Voltaren 2 gm TOP QID PRN #1 each 12/11/22 Gel] Ferrous Gluconate [Fergon] 324 mg PO DAILY #30 tab 12/11/22 Folic Acid 1 mg PO DAILY #30 tab 12/11/22 Furosemide [Lasix] 40 mg PO DAILY #30 tablet 12/11/22 Gentamicin 0.3% Ophth Drops 1 drops RIGHTEYE BID #1 each 12/11/22 [Garamycin] Potassium Chloride [K-Dur] 20 meq PO DAILY #30 tablet 12/11/22 Saccharomyces Boulardii [Florastor] 250 mg PO BIDWM #10 cap 12/11/22 cephALEXin [Keflex] 500 mg PO Q6H #24 cap 12/11/22 Acetaminophen [Tylenol] 650 mg PO Q6H PRN #30 tab 12/12/22 Enoxaparin [Lovenox] 40 mg SQ BID #90 ea 12/12/22 Ibuprofen [Motrin] 600 mg PO Q6H PRN #30 tab 12/12/22 cephALEXin [Keflex] 500 mg PO TID #20 cap 03/22/24 - Allergies Allergies/Adverse Reactions: Allergies Allergy/AdvReac Type Severity Reaction Status Date / Time Penicillins Allergy Unknown Verified 03/22/24 10:02 Sulfa (Sulfonamide Allergy Rash Verified 03/22/24 10:02 Antibiotics) - Social History Smoking Status: Never smoker PD ED PE NORMAL - Vitals Vital signs reviewed: Yes - General General: Alert and oriented X 3, Well developed/nourished - HEENT HEENT: Atraumatic - Neck Neck: Supple, no meningeal sign, No adenopathy - Cardiac Cardiac: RRR, No murmur - Respiratory Respiratory: Clear bilaterally - Abdomen Abdomen: Soft, Non tender - Derm Derm: Normal color, Warm and dry - Extremities Extremities: No edema, No calf tenderness / cord - Neuro Neuro: Alert and oriented X 3, food and nutrition services assistant 2-12 intact, No motor deficit, No sensory deficit, Normal speech Eye Opening: Spontaneous Motor: Obeys Commands Verbal: Oriented GCS Score: 15 Results - Vitals Vitals: Oxygen O2 Source Room air - EKG (time done) 10:43 EKG releavant findings:: EKG personally interpreted by author of this note. Relevant findings are: Rate: Rate (enter#) (57) Rhythm: Sinus bradycardia [place]: Normal Intervals: Normal [place] QRS: Normal Ischemia: Normal ST segments. No: ST elevation c/w ischemia, ST depression - Labs Labs: Microbiology 03/22/24 12:10 Urine Culture - Preliminary Urine,Random Laboratory Tests 03/22/24 03/22/24 03/22/24 10:25 10:25 10:25 WBC 7.7 RBC 4.31 Hgb 11.8 L Hct 37.0 MCV 85.8 MCH 27.4 MCHC 31.9 L RDW 13.3 Plt Count 289 MPV 9.3 Neut # (Auto) 5.8 Lymph # (Auto) 1.2 L [place] # (Auto) 0.5 Eos # (Auto) 0.2 Baso # (Auto) 0.0 Absolute Nucleated RBC 0.00 Nucleated RBC % 0.0 Sodium 141 Potassium 4.3 Chloride 108 Carbon Dioxide 26 Anion Gap 7.0 BUN 20 Creatinine 0.9 Estimated GFR (MDRD) 61 L Glucose 89 Lactic Acid 1.5 Calcium 9.2 Magnesium 1.8 Total Bilirubin 0.4 AST 9 L ALT 6 L Alkaline Phosphatase 65 Troponin I High Sens Total Protein 6.8 Albumin 3.7 Globulin 3.1 Albumin/Globulin Ratio 1.2 Lipase < 10 L Urine Color Urine Clarity Urine pH Ur Specific [place] Urine Protein Urine Glucose (UA) Urine Ketones Urine Occult Blood Urine Nitrite Urine Bilirubin Urine Urobilinogen Ur Leukocyte Esterase Urine RBC Urine WBC Ur Squamous Epith Cells Urine Bacteria Ur Microscopic Review Urine Culture Comments Nasal Adenovirus (PCR) Nasal B. parapertussis DNA (PCR) Nasal Coronavir 229E PCR Nasal Coronavir HKU1 PCR Nasal Coronavir NL63 PCR Nasal Coronavir OC43 PCR Nasal Enterovir/Rhinovir PCR Nasal Influenza B PCR Nasal Influenza A PCR Nasal Parainfluen 1 PCR Nasal Parainfluen 2 PCR Nasal Parainfluen 3 PCR Nasal Parainfluen 4 PCR Nasal RSV (PCR) Nasal B.pertussis DNA PCR Nasal C.pneumoniae (PCR) Navjot Human Metapneumo PCR Nasal M.pneumoniae (PCR) Nasal SARS-CoV-2 (PCR) 03/22/24 03/22/24 03/22/24 10:25 10:43 12:10 WBC RBC Hgb Hct MCV MCH MCHC RDW Plt Count MPV Neut # (Auto) Lymph # (Auto) [place] # (Auto) Eos # (Auto) Baso # (Auto) Absolute Nucleated RBC Nucleated RBC % Sodium Potassium Chloride Carbon Dioxide Anion Gap BUN Creatinine Estimated GFR (MDRD) Glucose Lactic Acid Calcium Magnesium Total Bilirubin AST ALT Alkaline Phosphatase Troponin I High Sens 3.1 Total Protein Albumin Globulin Albumin/Globulin Ratio Lipase Urine Color YELLOW Urine Clarity CLEAR Urine pH 6.0 Ur Specific [place] 1.020 Urine Protein NEGATIVE Urine Glucose (UA) NEGATIVE Urine Ketones TRACE Urine Occult Blood NEGATIVE Urine Nitrite POSITIVE H Urine Bilirubin NEGATIVE Urine Urobilinogen 0.2 (NORMAL) Ur Leukocyte Esterase SMALL H Urine RBC 0-5 Urine WBC 0-3 Ur Squamous Epith Cells FEW Squamous Urine Bacteria Moderate H Ur Microscopic Review INDICATED Urine Culture Comments INDICATED Nasal Adenovirus (PCR) NOT DETECTED Nasal B. parapertussis DNA (PCR) NOT DETECTED Nasal Coronavir 229E PCR NOT DETECTED Nasal Coronavir HKU1 PCR NOT DETECTED Nasal Coronavir NL63 PCR NOT DETECTED Nasal Coronavir OC43 PCR NOT DETECTED Nasal Enterovir/Rhinovir PCR NOT DETECTED Nasal Influenza B PCR NOT DETECTED Nasal Influenza A PCR NOT DETECTED Nasal Parainfluen 1 PCR NOT DETECTED Nasal Parainfluen 2 PCR NOT DETECTED Nasal Parainfluen 3 PCR NOT DETECTED Nasal Parainfluen 4 PCR NOT DETECTED Nasal RSV (PCR) NOT DETECTED Nasal B.pertussis DNA PCR NOT DETECTED Nasal C.pneumoniae (PCR) NOT DETECTED Navjot Human Metapneumo PCR NOT DETECTED Nasal M.pneumoniae (PCR) NOT DETECTED Nasal SARS-CoV-2 (PCR) NOT DETECTED - Rads (name of study) chest xray Relevant Findings:: Prelim report reviewed (no acute process), EMP independent interpretation of test PD Medical Decision Making - ED course Complexity details: considered differential (lightheaded episodes posturally with near syncope. No injury. Does take BP meds. no recent change in doses. ), d/w patient ED course: she describes postural lightheadedness and near syncope occurring often the past week or more. Has some UTI sympotms. Does not seem septic. Labs without elevated WBC nor Lactate. UA showing UTI. CHemistries are good. Not notably anemic. can treat UTi with Keflex though she does not seem sick enough from it to account for the hypotensive episodes. I suggested to her to lower her BP med losartan. Kept beta tasneem same and amlodppine the same for now. If persistent symptoms, I would lower losartan more or just drop the amlodipine. Departure - Departure Disposition: 01 Home, Self Care Clinical Impression: Near syncope, Transient hypotension UTI (urinary tract infection) Qualifiers: Urinary tract infection type: acute cystitis Condition: Stable Record reviewed to determine appropriate education?: Yes Follow-Up: Ivone Howard MD [Primary Care Provider] - Prescriptions: cephALEXin [Keflex] 500 mg PO TID #20 cap Comments: Your urine sample does show signs of a current infection. Cephalexin antibiotic as directed for that for the next week. I sent it to your preferred pharmacy. Your other blood tests are pretty good with normal blood count and electrolytes and kidney function. No signs of heart injury such as heart attack causing your lightheaded and near fainting. Your heart rhythm has been okay here. You do describe your blood pressure being low fairly often. I would suggest decreasing your blood pressure medicines slightly. Continue with your metoprolol and amlodipine. I would decrease your losartan from 50 mg daily to 25 mg. Follow-up with your primary care. On your blood test there is no signs of impending sepsis or such but just a simple bladder infection. Forms: PCP List Discharge Date/Time: 03/22/24 13:59
[2024-03-22 10:37] LABS: BASOPHILS % (AUTO) 0.4 %; EOSINOPHILS # (AUTO) 0.2 10^3/uL (0.0-0.7); EOSINOPHILS % (AUTO) 2.3 %; HGB - HEMOGLOBIN 11.8 g/dL (12.0-16.0); LYMPHOCYTES # (AUTO) 1.2 10^3/uL (1.5-3.5); LYMPHOCYTES % (AUTO) 15.3 %; MEAN CORPUSCULAR HEMOGLOBIN 27.4 pg (27.0-31.0); MEAN CORPUSCULAR HGB CONC 31.9 g/dL (32.0-36.0); MEAN CORPUSCULAR VOLUME 85.8 fL (81.0-99.0); MEAN PLATELET VOLUME 9.3 fL (7.9-10.8); MONOCYTES # (AUTO) 0.5 10^3/uL (0.0-1.0); MONOCYTES % (AUTO) 6.8 %; NEUTROPHILS # (AUTO) 5.8 10^3/uL (1.5-6.6); NEUTROPHILS % (AUTO) 74.9 %; PLT - PLATELET COUNT 289 10^3/uL (130-450); RED BLOOD COUNT 4.31 10^6/uL (4.20-5.40); RED CELL DISTRIBUTION WIDTH 13.3 % (12.0-15.0); WHITE BLOOD COUNT 7.7 x10^3/uL (4.8-10.8)
--- NOTE | 2024-03-22 10:38 | XRAY Report ---
PROCEDURE: Chest 1V INDICATIONS: cough TECHNIQUE: One view of the chest was acquired. COMPARISON: 12/06/2022. FINDINGS: Surgical changes and devices: None. Lungs and pleura: No pleural effusions or pneumothorax. Lungs are clear. Mediastinum: Mediastinal contours appear normal. Heart size is normal. Bones and chest wall: No suspicious bony lesions. Overlying soft tissues appear unremarkable. IMPRESSION: No acute cardiopulmonary process. Reviewed by: Eloy Rush MD on 03/22/2024 10:37 AM PDT Approved by: Eloy Rush MD on 03/22/2024 10:37 AM PDT Station ID: [id number]
[2024-03-22] MEDS: SODIUM CHLORIDE 0.9% 1,000 ML IV STA (10:39)
[2024-03-22 10:47] LABS: ALBUMIN 3.7 g/dL (3.2-5.5); ALBUMIN/GLOBULIN RATIO 1.2 (1.0-2.2); ALKALINE PHOSPHATASE 65 IU/L (42-121); ALT ALANINE AMINOTRANSFERASE 6 IU/L (10-60); AST ASPARTATE AMINOTRANSFERASE 9 IU/L (10-42); BILIRUBIN,TOTAL 0.4 mg/dL (0.2-1.0); BUN - BLOOD UREA NITROGEN 20 mg/dL (6-20); CALCIUM 9.2 mg/dL (8.5-10.3); CARBON DIOXIDE - CO2 26 mmol/L (21-32); CHLORIDE 108 mmol/L (101-111); CREATININE 0.9 mg/dL (0.6-1.3); GFR - MDRD 61 (>89); GLUCOSE 89 mg/dL (74-104); MAGNESIUM 1.8 mg/dL (1.7-2.3); POTASSIUM 4.3 mmol/L (3.5-4.5); SODIUM 141 mmol/L (135-145); TOTAL PROTEIN 6.8 g/dL (6.4-8.9)
[2024-03-22 10:49] LABS: LIPASE < 10 U/L (11-82)
[2024-03-22 11:50] LABS: B. PARAPERTUSSIS- RESP PCR PAN NOT DETECTED; B. PERTUSSIS- RESP PCR PANEL NOT DETECTED; C. PNEUMONIAE- RESP PCR PANEL NOT DETECTED; CORONAVIRUS 229E-RESP PCR NOT DETECTED; CORONAVIRUS HKU1-RESP PCR NOT DETECTED; CORONAVIRUS NL63-RESP PCR NOT DETECTED; CORONAVIRUS OC43-RESP PCR NOT DETECTED; HUMAN METAPNEUMOVIRUS NOT DETECTED; INFLUENZA A- RESP PCR PANEL NOT DETECTED; INFLUENZA B - RESP PCR PANEL NOT DETECTED; M. PNEUMONIAE- RESP PCR PANEL NOT DETECTED; PARAINFLUENZA VIRUS 1 NOT DETECTED; PARAINFLUENZA VIRUS 2 NOT DETECTED; PARAINFLUENZA VIRUS 3 NOT DETECTED; PARAINFLUENZA VIRUS 4 NOT DETECTED; RHINOVIRUS/ENTEROVIRUS NOT DETECTED; RSV- RESP PCR PANEL NOT DETECTED; SARS-CoV-2 -RESP PCR PANEL NOT DETECTED
[2024-03-22 12:22] LABS: BILIRUBIN,URINE NEGATIVE (NEGATIVE); GLUCOSE, URINE (UA) NEGATIVE (NEGATIVE); KETONES,URINE (UA) TRACE mg/dL (NEGATIVE); LEUKOCYTE ESTERASE, URINE SMALL (NEGATIVE); NITRITE,URINE POSITIVE (NEGATIVE); OCCULT BLOOD,URINE NEGATIVE (NEGATIVE); PROTEIN,URINE NEGATIVE (NEGATIVE); UROBILINOGEN,URINE 0.2 (NORMAL) E.U./dL (NORMAL)
[2024-03-22 12:24] LABS: CLARITY,URINE CLEAR (CLEAR)
[2024-03-22 12:34] LABS: RBC,URINE 0-5 /HPF (0-5); WBC,URINE 0-3 /HPF (0-5)
[2024-03-22 12:35] LABS: BACTERIA,URINE Moderate /HPF (None Seen); SQUAMOUS EPITHELIAL CELL,UR FEW Squamous (<= Few)
[2024-03-22] MEDS: cefTRIAXone 1 GM VIAL IVP STA (12:45)
[2024-03-22] MEDS: KETOROLAC 15 MG/ML VIAL IVP STA (12:48)
[2024-03-22 13:59] VITALS: BP 180/86; O2SAT 97
== END 2024-03-22 13:59 | disposition home or self-care (01) ==
LOC: EDUNIT# → ED 09:42
DX: R55 Syncope and collapse (principal); I95.9 Hypotension, unspecified; I10 Essential (primary) hypertension; N30.00 Acute cystitis without hematuria
CPT/HCPCS: 36415; 80053; 81001; 81003; 83605; 83690; 83735; 84484; 85025; 87077; 87086; 87181; 87633; 93005; 96361; 96374; 99284

== ENCOUNTER 2024-03-30 18:21 | Outpatient (CLI) | payer MEDICARE, MEDICAID | END 2024-03-30 23:59 | disposition critical access hospital (66) | LOC: EMS 18:21 | DX: R51.9 Headache, unspecified (principal); M25.552 Pain in left hip; M54.2 Cervicalgia; W01.0XXA Fall on same level from slipping, tripping and stumbling without subsequent striking against object, initial encounter; Y93.01 Activity, walking, marching and hiking; Y92.008 Other place in unspecified non-institutional (private) residence as the place of occurrence of the external cause | CPT/HCPCS: A0425; A0427 ==

== ENCOUNTER 2024-03-30 18:38 | Emergency (ER) | payer MEDICARE, MEDICAID ==
--- NOTE | 2024-03-30 18:46 | ED Physician Documentation ---
PD HPI Fall - Stated complaint Stated Complaint: GLF, HEAD AND LEFT HIP PAIN, - Additional information Additional information: 73-year-old female with history of hypertension, GERD, depression, arthritis presents emergency department after experiencing a mechanical ground-level fall. Patient was walking down the ramp with sandals on lost her balance she uses a cane but unfortunately was unable to catch herself she fell onto her left hip left shoulder region and then hit the back of her head. She is complaining of neck pain, no loss of consciousness, left hip pain and left shoulder pain. No nausea or vomiting no focal neurological deficits unable to ambulate due to the pain on her left hip. PD PAST MEDICAL HISTORY - Past Medical History Cardiovascular: Hypertension Respiratory: None Neuro: None Endocrine/Autoimmune: None GI: GERD : Other Psych: Depression Musculoskeletal: None Derm: None - Past Surgical History Past Surgical History: Yes - Present Medications Home Medications: Ambulatory Orders Medication Instructions Recorded Confirmed DULoxetine [Cymbalta] 30 mg PO DAILY 12/07/22 12/07/22 Losartan [Cozaar] 50 mg PO DAILY 12/07/22 12/07/22 Omeprazole 40 mg PO QDAC 12/07/22 12/07/22 oxyBUTYnin chloride [Ditropan Xl] 10 mg PO DAILY 12/07/22 12/07/22 Diclofenac Sodium 1% Gel [Voltaren 2 gm TOP QID PRN #1 each 12/11/22 Gel] Ferrous Gluconate [Fergon] 324 mg PO DAILY #30 tab 12/11/22 Folic Acid 1 mg PO DAILY #30 tab 12/11/22 Furosemide [Lasix] 40 mg PO DAILY #30 tablet 12/11/22 Gentamicin 0.3% Ophth Drops 1 drops RIGHTEYE BID #1 each 12/11/22 [Garamycin] Potassium Chloride [K-Dur] 20 meq PO DAILY #30 tablet 12/11/22 Saccharomyces Boulardii [Florastor] 250 mg PO BIDWM #10 cap 12/11/22 cephALEXin [Keflex] 500 mg PO Q6H #24 cap 12/11/22 Acetaminophen [Tylenol] 650 mg PO Q6H PRN #30 tab 12/12/22 Enoxaparin [Lovenox] 40 mg SQ BID #90 ea 12/12/22 Ibuprofen [Motrin] 600 mg PO Q6H PRN #30 tab 12/12/22 cephALEXin [Keflex] 500 mg PO TID #20 cap 03/22/24 Cyclobenzaprine [Flexeril] 10 mg PO TID PRN 6 Days #20 tablet 03/30/24 - Allergies Allergies/Adverse Reactions: Allergies Allergy/AdvReac Type Severity Reaction Status Date / Time Penicillins Allergy Unknown Verified 03/30/24 18:46 Sulfa (Sulfonamide Allergy Rash Verified 03/30/24 18:46 Antibiotics) - Social History Does the pt smoke?: No Smoking Status: Never smoker PD ED PE NORMAL - Vitals Vital signs reviewed: Yes - General General: Alert and oriented X 3, No acute distress, Well developed/nourished - HEENT HEENT: Atraumatic, PERRL, EOMI - Neck Neck: Other (paraspinal tenderness) - Cardiac Cardiac: RRR - Respiratory Respiratory: No respiratory distress, Clear bilaterally - Abdomen Abdomen: Normal bowel sounds - Derm Derm: Normal color, Warm and dry, No rash, Other (no abrasions or echymosis) - Extremities Extremities: No deformity, Normal ROM s pain, No edema, Other Results - Vitals Vitals: Vital Signs - 24 hr 03/30/24 18:46 Temperature 36.6 C Heart Rate 60 Respiratory 13 Rate Blood Pressure 150/77 H O2 Saturation 94 Oxygen O2 Source Room air Oxygen Flow Rate 2 - Rads (name of study) Pelvis CT without Relevant Findings:: Final report received, EMP independent interpretation of test, Other (No hip dislocation or fractures or pelvic fractures) 2 view shoulder x-ray Relevant Findings:: Final report received, EMP independent interpretation of test, Other (No acute bony findings or abnormalities fractures or dislocations.) Hip with pelvis CT Relevant Findings:: Final report received, EMP independent interpretation of test, Other (No acute bony abnormalities or findings no dislocation.) Head CT without Relevant Findings:: Final report received, EMP independent interpretation of test, Other (No intracranial hemorrhages or abnormalities) Cervical spine without Relevant Findings:: Final report received, EMP independent interpretation of test, Other (No acute displaced fracture or traumatic subluxation. Mild degenerative disc disease throughout cervical spine.) PD Medical Decision Making - ED course ED course: 73-year-old female presents emergency department via EMS after experiencing a mechanical ground-level fall. She had a head CT as well as a cervical CT completed for the neck pain she is experiencing as well as because of her head injury. No subluxations or fractures were found on the cervical CT and no intracranial hemorrhages were found. X-rays were also completed for left shoulder as she was complaining of left shoulder pain and tenderness and again no dislocation or acute bony abnormalities were found. CT of left hip was also complete as we were unable to get a very accurate image via x-ray of her left hip and no hip or pelvis fractures or dislocations were identified. Patient was given Toradol via IV and 100 mcg of fentanyl via EMS and route and significantly ovation of pain. She is sent home with a front wheel walker to help with ambulation and informed that she will be sore for the next 3 to 4 days to alternate between Tylenol and ibuprofen and a prescription of Flexeril was sent to her preferred pharmacy. Return precautions given patient is told to follow-up with her primary care provider soon as possible all questions answered patient is safe for discharge at this time. Departure - Departure Disposition: 01 Home, Self Care Clinical Impression: Ground-level fall, Contusion of left hip, Closed head injury Contusion, hip Qualifiers: Encounter type: initial encounter Laterality: left Qualified Code(s): S70.02XA - Contusion of left hip, initial encounter Instructions: Walker Use, Walker Dc, ED Contusion Hip Prescriptions: Cyclobenzaprine [Flexeril] 10 mg PO TID PRN 6 Days #20 tablet PRN Reason: Spasms Comments: Thank you for trusting us with your care. We have completed a CT scan of your hip and pelvis as well as x-rays we have also completed a CT of your head and neck and x-rays of your left shoulder and we are not seeing any acute abnormalities or findings at this point in time. I am sending you home with a front wheel walker as I want you to use this to ambulate with instead of your cane you will be quite sore over the next couple days you can alternate between Tylenol, 1000 mg every 8 hours and ibuprofen 600 mg every 6 hours for pain and discomfort do not take ibuprofen for longer than 14 days. I have also sent a prescription of muscle relaxers and you can take these up to 3 times a day as needed for musculoskeletal pain. Keep in mind that this can cause dizziness and fatigue so do not drive while taking these medications and if you are feeling like it is making you too dizzy lightheaded or weak discontinue these medications. Please help with your primary care provider for possible physical therapy referral wishing you speedy recovery. Forms: PCP List
[2024-03-30] MEDS: ONDANSETRON 4 MG/2 ML VIAL IVP STA (19:18)
--- NOTE | 2024-03-30 19:49 | XRAY Report ---
PROCEDURE: Hip w/Pelvis 2-3V LT INDICATIONS: FALL TECHNIQUE: 2 views of the hip were acquired. COMPARISON: None. FINDINGS: Bones: No fractures or dislocations. Bilateral hip joint osteoarthritic changes are seen. No evidenc e of avascular necrosis of femoral head. No suspicious bony lesions. Soft tissues: No suspicious soft tissue calcifications or masses. IMPRESSION: No gross acute left hip fracture or dislocation. Moderate bilateral hip joint osteoarthritis. No evid ence of avascular necrosis. Reviewed by: Michael Anglin MD on 03/30/2024 7:48 PM PDT Approved by: Michael Anglin MD on 03/30/2024 7:48 PM PDT Station ID: [id number]
--- NOTE | 2024-03-30 19:50 | XRAY Report ---
PROCEDURE: Shoulder 2+V LT INDICATIONS: Left shoulder pain after GLF TECHNIQUE: 3 views of the shoulder were acquired. COMPARISON: None. FINDINGS: Bones: No fractures or dislocations. Moderate acromioclavicular joint osteoarthritic changes are see n. No suspicious bony lesions. Visualized ribs appear intact. Soft tissues: No suspicious soft tissue calcifications. The visualized lungs are within normal limi ts. IMPRESSION: No acute left shoulder fracture or dislocation. Moderate acromioclavicular joint osteoarthritis. Reviewed by: Michael Anglin MD on 03/30/2024 7:49 PM PDT Approved by: Michael Anglin MD on 03/30/2024 7:49 PM PDT Station ID: [id number]
--- NOTE | 2024-03-30 19:52 | CT Report ---
PROCEDURE: Cervical Spine WO INDICATIONS: neck pain after GLF TECHNIQUE: Noncontrast 3 mm thick sections acquired from the skull base to the T4 level. Sagittal and coronal r eformats were then constructed. For radiation dose reduction, the following was used: automated exp osure control, adjustment of mA and/or kV according to patient size. COMPARISON: None. FINDINGS: Image quality: Excellent. Bones: No fractures or dislocations. Mild degenerative disc disease throughout cervical spine is se en most notably at C5-6 and C6-7 levels causing [id number] central canal stenosis. Visualized s uperior ribs are intact. Soft tissues: Prevertebral soft tissues are normal in thickness. No paravertebral hematomas. No ap ical pneumothoraces. IMPRESSION: No acute, displaced fracture or traumatic subluxation. Mild degenerative disc disease throughout cervical spine as above. Reviewed by: Michael Anglin MD on 03/30/2024 7:50 PM PDT Approved by: Michael Anglin MD on 03/30/2024 7:50 PM PDT Station ID: [id number]
--- NOTE | 2024-03-30 19:53 | CT Report ---
PROCEDURE: Head WO INDICATIONS: GLF, head injury TECHNIQUE: Noncontrast 4.5 mm thick angled axial sections acquired from the foramen magnum to the vertex. For r adiation dose reduction, the following was used: automated exposure control, adjustment of mA and/or kV according to patient size. COMPARISON: None. FINDINGS: Image quality: Excellent. CSF spaces: Basal cisterns are patent. No extra-axial fluid collections. Ventricles are normal in size and shape. Brain: No midline shift. No intracranial masses or hemorrhage. Patel-white matter interface is norm al. Skull and face: Calvarium and visualized facial bones are intact, without suspicious lesions. Sinuses: Opacification of left maxillary sinus is seen. Bilateral mastoid air cells are well aerated. IMPRESSION: No acute intracranial pathology. No displaced skull fracture. Left maxillary sinusitis. Reviewed by: Michael Anglin MD on 03/30/2024 7:51 PM PDT Approved by: Michael Anglin MD on 03/30/2024 7:51 PM PDT Station ID: [id number]
--- NOTE | 2024-03-30 19:57 | CT Report ---
PROCEDURE: Pelvis WO INDICATIONS: left hip pain after GLF TECHNIQUE: Noncontrast 3 mm axial sections acquired through the bony pelvis, with coronal and sagittal reformatt ing. For radiation dose reduction, the following was used: automated exposure control, adjustment of mA and/or kV according to patient size. COMPARISON: Pelvic radiograph on the same day. CT of abdomen and pelvis dated 01/15/2024. FINDINGS: Image quality: Excellent. Bones: Severe bilateral hip joint osteoarthritic changes are seen with external rotation at bilatera l hip joints, extensive subchondral sclerosis and prominent marginal osteophyte formation. No acute p elvic or hip fracture. No hip dislocation. No suspicious intraosseous lesion. No evidence of avascula r necrosis of femoral heads. Degenerative disc disease in visualized lower lumbar spine is seen. No acute vertebral body compressi on fractures. Soft tissues: There is no soft tissue hematoma or drainable fluid collection. No soft tissue mass. N o abnormal soft tissue calcifications. There is no pelvic free fluid or free air. No abnormal bowel w all thickening or mesenteric fat stranding. Bladder wall thickness is normal. No pelvic lymphadenopat hy by size criteria. IMPRESSION: 1. Severe bilateral hip joint osteoarthritis as described above. No acute pelvic or hip fracture. No hip dislocation. No evidence of avascular necrosis of femoral head. 2. No large soft tissue hematoma or drainable fluid collection. No soft tissue mass or abnormal soft tissue calcifications. No pelvic free fluid or free air. Reviewed by: Michael Anglin MD on 03/30/2024 7:55 PM PDT Approved by: Michael Anglin MD on 03/30/2024 7:55 PM PDT Station ID: [id number]
[2024-03-30] MEDS: KETOROLAC 15 MG/ML VIAL IVP STA (20:20)
[2024-03-30 21:22] VITALS: BP 130/79; O2SAT 96
== END 2024-03-30 20:45 | disposition home or self-care (01) ==
LOC: EDUNIT# → ED 18:38
DX: S09.90XA Unspecified injury of head, initial encounter (principal); S70.02XA Contusion of left hip, initial encounter; W18.30XA Fall on same level, unspecified, initial encounter; Y93.01 Activity, walking, marching and hiking; I10 Essential (primary) hypertension; Z79.899 Other long term (current) drug therapy; Z79.01 Long term (current) use of anticoagulants
CPT/HCPCS: 96374; 96375; 99284

== ENCOUNTER 2024-04-27 08:00 | Outpatient (CLI) | payer MEDICARE, MEDICAID ==
[2024-04-27 16:15] LABS: BILIRUBIN,URINE NEGATIVE (NEGATIVE); GLUCOSE, URINE (UA) NEGATIVE (NEGATIVE); KETONES,URINE (UA) NEGATIVE (NEGATIVE); LEUKOCYTE ESTERASE, URINE TRACE (NEGATIVE); NITRITE,URINE POSITIVE (NEGATIVE); OCCULT BLOOD,URINE NEGATIVE (NEGATIVE); PROTEIN,URINE NEGATIVE (NEGATIVE); UROBILINOGEN,URINE 0.2 (NORMAL) E.U./dL (NORMAL)
[2024-04-27 16:39] LABS: BACTERIA,URINE Many /HPF (None Seen); CLARITY,URINE HAZY (CLEAR); RBC,URINE None Seen /HPF (0-5); SQUAMOUS EPITHELIAL CELL,UR MOD Squamous (<= Few); WBC CLUMPS,URINE PRESENT
== END 2024-04-27 23:59 | disposition home or self-care (01) ==
LOC: LAB 08:00
PROVIDERS: ATTEND Urology
DX: R35.0 Frequency of micturition (principal)
CPT/HCPCS: 81001; 87086

== ENCOUNTER 2024-04-28 14:13 | Outpatient (CLI) | payer MEDICARE, MEDICAID | END 2024-04-28 14:14 | disposition EMS.NT | LOC: EMS 14:13 | DX: R51.9 Headache, unspecified (principal); M54.2 Cervicalgia; M43.6 Torticollis; Z91.81 History of falling ==

== ENCOUNTER 2024-04-29 08:00 | Outpatient (CLI) | payer MEDICARE, MEDICAID | END 2024-04-29 23:59 | disposition home or self-care (01) | LOC: LAB 08:00 | PROVIDERS: ATTEND Urology | DX: N30.00 Acute cystitis without hematuria (principal) | CPT/HCPCS: 87086; 87181 ==

== ENCOUNTER 2024-05-03 19:19 | Outpatient (CLI) | payer MEDICARE, MEDICAID | END 2024-05-03 19:20 | disposition critical access hospital (66) | LOC: EMS 19:19 | DX: R51.9 Headache, unspecified (principal); M54.2 Cervicalgia; R47.02 Dysphasia | CPT/HCPCS: A0425; A0429 ==

== ENCOUNTER 2024-05-03 19:41 | Emergency (ER) | payer MEDICARE, MEDICAID ==
--- NOTE | 2024-05-03 21:11 | CT Report ---
PROCEDURE: Cervical Spine WO INDICATIONS: fall 1 month ago, cont pain TECHNIQUE: Noncontrast 3 mm thick sections acquired from the skull base to the T4 level. Sagittal and coronal r eformats were then constructed. For radiation dose reduction, the following was used: automated exp osure control, adjustment of mA and/or kV according to patient size. COMPARISON: 03/30/2024. FINDINGS: Image quality: Excellent. Bones: No fractures or dislocations. Degenerative endplate changes and bilateral uncovertebral hype rtrophic changes are noted throughout cervical spine more notably involving C4-5 through C6-7 levels. Mild central canal stenosis and bilateral neural foraminal narrowing is seen at C5-6 and C6-7 levels . Visualized superior ribs are intact. Soft tissues: Prevertebral soft tissues are normal in thickness. No paravertebral hematomas. No ap ical pneumothoraces. IMPRESSION: 1. No cervical spine fracture or dislocation. 2. Degenerative disc disease throughout cervical spine as above. Reviewed by: Michael De Anda MD on 05/03/2024 9:10 PM PDT Approved by: Michael De Anda MD on 05/03/2024 9:10 PM PDT Station ID: [id number]
--- NOTE | 2024-05-03 21:13 | CT Report ---
PROCEDURE: Head WO INDICATIONS: fall 1 month ago, cont pain TECHNIQUE: Noncontrast 4.5 mm thick angled axial sections acquired from the foramen magnum to the vertex. For r adiation dose reduction, the following was used: automated exposure control, adjustment of mA and/or kV according to patient size. COMPARISON: 03/30/2024, 12/06/2022 FINDINGS: Image quality: Excellent. CSF spaces: Basal cisterns are patent. No extra-axial fluid collections. Ventricles are normal in size and shape. Brain: No midline shift. No intracranial masses or hemorrhage. Patel-white matter interface is norm al. Skull and face: Calvarium and visualized facial bones are intact, without suspicious lesions. Sinuses: Opacification of left maxillary sinus is again seen. IMPRESSION: No acute intracranial pathology. Chronic appearing left maxillary sinusitis. Reviewed by: Michael Anglin MD on 05/03/2024 9:12 PM PDT Approved by: Michael Anglin MD on 05/03/2024 9:12 PM PDT Station ID: [id number]
[2024-05-03 21:34] VITALS: BP 158/80; O2SAT 97
--- NOTE | 2024-05-03 21:37 | ED Physician Documentation ---
History of Present Illness - Stated complaint Stated Complaint: ROWE/NECK PX - Chief complaint Chief Complaint: General - History obtained from History obtained from: Patient - History of Present Illness Timing: Other (1 month) Pain level max: 7 Pain level now: 7 - Additonal information Additional information: 73-year-old female states that she fell about a month ago striking her head on the ground and stating it "bounced" twice. She states since that time she has had intermittent headaches, episodes of confusion and continued neck pain. No numbness or tingling. Not on blood thinners. She states that she brought it up to her doctor who "did not seem concerned". After the fall she did have a negative head CT and cervical spine CT. She states that she spoke with a nurse from her primary care provider's office who told her she should go to the emergency department to be rechecked. Review of Systems Constitutional: denies: Fever, Chills Cardiac: denies: Chest pain / pressure, Palpitations Respiratory: denies: Cough GI: reports: Nausea. denies: Abdominal Pain, Vomiting, Diarrhea : denies: Dysuria, Frequency, Hesitancy Skin: denies: Rash Neurologic: denies: Focal weakness, Numbness, Seizure PD PAST MEDICAL HISTORY - Past Medical History Past Medical History: Yes Cardiovascular: Hypertension Respiratory: None Neuro: None Endocrine/Autoimmune: None GI: GERD : Other Psych: Depression Musculoskeletal: None Derm: None - Past Surgical History Past Surgical History: Yes - Present Medications Home Medications: Ambulatory Orders Medication Instructions Recorded Confirmed DULoxetine [Cymbalta] 30 mg PO DAILY 12/07/22 12/07/22 Losartan [Cozaar] 50 mg PO DAILY 12/07/22 12/07/22 Omeprazole 40 mg PO QDAC 12/07/22 12/07/22 oxyBUTYnin chloride [Ditropan Xl] 10 mg PO DAILY 12/07/22 12/07/22 Diclofenac Sodium 1% Gel [Voltaren 2 gm TOP QID PRN #1 each 12/11/22 Gel] Ferrous Gluconate [Fergon] 324 mg PO DAILY #30 tab 12/11/22 Folic Acid 1 mg PO DAILY #30 tab 12/11/22 Furosemide [Lasix] 40 mg PO DAILY #30 tablet 12/11/22 Gentamicin 0.3% Ophth Drops 1 drops RIGHTEYE BID #1 each 12/11/22 [Garamycin] Potassium Chloride [K-Dur] 20 meq PO DAILY #30 tablet 12/11/22 Saccharomyces Boulardii [Florastor] 250 mg PO BIDWM #10 cap 12/11/22 cephALEXin [Keflex] 500 mg PO Q6H #24 cap 12/11/22 Acetaminophen [Tylenol] 650 mg PO Q6H PRN #30 tab 12/12/22 Enoxaparin [Lovenox] 40 mg SQ BID #90 ea 12/12/22 Ibuprofen [Motrin] 600 mg PO Q6H PRN #30 tab 12/12/22 cephALEXin [Keflex] 500 mg PO TID #20 cap 03/22/24 Cyclobenzaprine [Flexeril] 10 mg PO TID PRN 6 Days #20 tablet 03/30/24 - Allergies Allergies/Adverse Reactions: Allergies Allergy/AdvReac Type Severity Reaction Status Date / Time Sulfa (Sulfonamide Allergy Rash Verified 05/03/24 19:50 Antibiotics) - Social History Does the pt smoke?: No Smoking Status: Never smoker - POLST Patient has POLST: No PD ED PE NORMAL - Vitals Vital signs reviewed: Yes - General General: Alert and oriented X 3, No acute distress - HEENT HEENT: Atraumatic, PERRL, Moist mucous membranes, Pharynx benign - Neck Neck: Supple, no meningeal sign, No bony TTP - Cardiac Cardiac: RRR, Strong equal pulses - Respiratory Respiratory: No respiratory distress, Clear bilaterally - Abdomen Abdomen: Soft, Non tender, Non distended - Back Back: No spinal TTP - Derm Derm: Warm and dry - Extremities Extremities: Normal ROM s pain - Neuro Neuro: Alert and oriented X 3, 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, No motor deficit, No sensory deficit, Normal speech Eye Opening: Spontaneous Motor: Obeys Commands Verbal: Oriented GCS Score: 15 - Psych Psych: Normal mood, Normal affect Results - Vitals Vitals: Vital Signs - 24 hr 05/03/24 05/03/24 19:51 21:32 Temperature 36.0 C L 36.1 C L Heart Rate 64 70 Respiratory 16 16 Rate Blood Pressure 174/90 H 158/80 H O2 Saturation 99 97 Oxygen O2 Source Room air - Rads (name of study) head ct Relevant Findings:: Final report received, See rad report cervical spine ct Relevant Findings:: Final report received, See rad report PD Medical Decision Making - ED course Complexity details: reviewed results, re-evaluated patient, considered differential, d/w patient ED course: Due to the patient's continued headaches and neck pain, repeat head CT and cervical spine were performed. These are both negative. Appears that the patient has a neck strain from the fall and likely has postconcussive headaches. Patient is well-appearing, nontoxic. Declines any pain medication here or for home. We will have her follow-up with her doctor for further care and return if she worsens. Patient counseled regarding signs and symptoms for which I believe and urgent re-evaluation would be necessary. Patient with good understanding of and agreement to plan and is comfortable going home at this time This document was made in part using voice recognition software. While efforts are made to proofread this document, sound alike and grammatical errors may occur. Departure - Departure Disposition: 01 Home, Self Care Clinical Impression: Post concussion syndrome Neck strain Qualifiers: Encounter type: initial encounter Qualified Code(s): S16.1XXA - Strain of muscle, fascia and tendon at neck level, initial encounter Condition: Good Instructions: ED Concussion, ED Sprain Strain Neck Follow-Up: your,doctor in 1 week [Other] Comments: As we discussed your head CT and cervical spine CT are negative today. Please follow-up with your doctor for further care. You appear to be having symptoms consistent with neck strain and postconcussive syndrome. Your doctor may want to refer you to physical therapy for further care. Forms: PCP List Discharge Date/Time: 05/03/24 21:59
== END 2024-05-03 21:59 | disposition home or self-care (01) ==
LOC: EDUNIT# → ED 19:41
DX: F07.81 Postconcussional syndrome (principal); S16.1XXA Strain of muscle, fascia and tendon at neck level, initial encounter; W19.XXXA Unspecified fall, initial encounter
CPT/HCPCS: 99283; 99284